=== PATIENT | male | born 1960 | race Caucasian/White ===

== ENCOUNTER 2018-05-08 07:19 | Day surgery (SDC) | payer OTHER ==
[~2018-05-08] VITALS: Ht 188 cm; Wt 70.5 kg
[2018-05-08] VITALS (9 sets, daily range): BP systolic 132–158; BP diastolic 87–97; PULSE 64–80; TEMP 36.8–37.2; O2SAT 95–98; Ht 188 cm; Wt 70.5 kg
[~2018-05-08 07:19] MED LIST: DILT240C74 PO; DOXY100C76 PO; ERGO500037 PO; MAGN400T6 PO
[2018-05-08] MEDS ORDERED: DOXY100C76 PO (07:41)
--- NOTE | 2018-05-08 09:03 | Discharge Instructions ---
Discharge Instructions Procedure Procedure Date: May 08, 2018. Reason for visit: Lymes Disease W/Opening Pressure. Discharge Discharge Date: May 08, 2018. Discharge Diagnosis: same Instructions Activity Recommendations: No limitations Return to School/Work: no limitations Recommended Home Diet: Resume Previous Diet Provider Instructions: ACTIVITY RECOMMENDATIONS: * Rest today. * Resume regular activity in one day. MEDICATIONS: * May take Tylenol or Ibuprofen as needed for pain. DIET: * Resume previous diet. SPECIAL CARE INSTRUCTIONS: Call your doctor if: * Temperature above 101 degrees F. * Pain not relieved by pain medicine ordered. * Increased drainage or redness from incision. * Notify your doctor with any questions or concerns. Call your doctor or go to the nearest Emergency Department if you experience: * Increased chest pain or shortness of breath. FOLLOW UP VISIT: Follow-up with Referring Physician as scheduled. Allergies Coded Allergies: No Known Allergies (Unverified , 05/08/18) Benitez Sanders Recommendations: Call your doctor if: * Temperature above 101 degrees * Pain not relieved by pain medicine ordered * There is increased drainage or redness from any incision * You have any unanswered questions or concerns. Your Doctors Instructions noted above were prepared by provider Leonard Quiñones. Patient Signature Section: Patient Instructions Signature Page Sudarshan Rodríguez Patient (or Guardian) Signature/Date: I have read and understand the instructions given to me by my caregivers. Caregiver/RN/Doctor Signature/Date: The above-named patient and/or guardian has received patient instructions on this date. + Original Patient Signature Page (only) stays with chart. Please make copy for patient.
--- NOTE | 2018-05-08 09:05 | DIAGNOSTIC IMAGING REPORT ---
FLUOROSCOPICALLY GUIDED LUMBAR PUNCTURE CLINICAL HISTORY: lymes disease FLUOROSCOPY TIME: 0.2 minutes. A single fluoroscopic spot image of the lumbar spine. PROCEDURE: The procedure, risks and benefits were discussed with the patient including the risk of spinal headache, bleeding and infection. The patient agreed to the procedure and informed written consent was obtained. The procedure was performed by Dr. Quiñones following a timeout. The left L4-L5 interlaminar space was targeted. Skin overlying the space was prepped and draped in the usual sterile fashion and local anesthesia was achieved with 1% lidocaine. Under intermittent fluoroscopic guidance, a 20-gauge x 3 1/2 in. Sprotte needle was inserted into the thecal sac. A total of 10 cc of clear, colorless cerebral spinal fluid was obtained and spread amongst 4 vials. The patient tolerated the procedure well. There were no immediate complications. The specimens were sent to the laboratory at the request of the referring physician. IMPRESSION: Successful fluoroscopic guided lumbar puncture with removal of 10 cc of clear, colorless cerebral spinal fluid. No immediate complications. Opening pressure was 9 cm of H2O. Electronically signed by: Leonard Quiñones M.D. 05/08/2018 9:04 AM Dictated Date/Time: 05/08/2018 9:01 AM
[2018-05-08] MEDS ORDERED: ACETAMINOPHEN 500 MG TAB PO PRN (09:15)
[2018-05-08 09:49] LABS: CSF TOTAL PROTEIN 50.7 mg/dl (15.0-45.0)
== END 2018-05-08 13:05 | disposition home or self-care (01) ==
LOC: C.ACU 07:19
PROVIDERS: ATTEND Psychiatry & Neurology Neurology
DX: A69.20 Lyme disease, unspecified (principal)

== ENCOUNTER 2021-08-28 14:31 | Observation (INO) ==
[2021-08-28 20:23] LABS: Basophils # (auto) 0.04 K/uL (0-0.2); Basophils % (auto) 0.4 %; Eosinophils # (auto) 0.14 K/uL (0-0.5); Eosinophils % (auto) 1.6 %; Hematocrit (blood only) 48.6 % (42-52); Hemoglobin 16.5 g/dL (14.0-18.0); Immature Granulocytes # (auto) 0.01 K/uL (0.00-0.02); Immature Granulocytes % (auto) 0.1 %; Lymphocytes # (auto) 1.76 K/uL (1.2-3.4); Lymphocytes % (auto) 19.8 %; Mean Corpuscular Hemoglobin 29.7 pg (25-34); Mean Corpuscular Volume 87.6 fL (80-100); Mean Platelet Volume 10.9 fL (7.4-10.4); Monocytes # (auto) 0.41 K/uL (0.11-0.59); Monocytes % (auto) 4.6 %; Neutrophils # (auto) 6.55 K/uL (1.4-6.5); Neutrophils % (auto) 73.5 %; Platelet Count 232 K/uL (130-400); RDW Coefficient of Variation 13.4 % (11.5-14.5); RDW Standard Deviation 43.4 fL (36.4-46.3); Red Blood Count 5.55 M/uL (4.7-6.1); White Blood Count 8.91 K/uL (4.8-10.8)
[2021-08-28 20:32] LABS: BUN Creatinine Ratio 4.6 (10-20); Calcium 9.1 mg/dl (8.5-10.1); Creatinine Clr Calc Pharmacy 65.4 ml/min; Est GFR (African American) 71.1 ml/min; Est GFR (Non-African American) 61.3 ml/min; Potassium 3.4 mmol/L (3.5-5.1)
[2021-08-28 20:35] LABS: Albumin Globulin Ratio 0.7 (0.9-2); Bilirubin,Total 0.9 mg/dl (0.2-1); Globulin 5.5 gm/dl (2.5-4.0); Total Protein 9.5 gm/dl (6.4-8.2)
[2021-08-28] MEDS ORDERED: GADOBUTROL 65ML VIAL IV ONE (22:28)
--- NOTE | 2021-08-28 22:54 | Emergency Department Note ---
History of Present Illness General Chief complaint: Hypertension Stated complaint: DIZZY/DOUBLE VISION/HIGH BLOOD PRESSURE History of Present Illness Maximum Pain Intensity: 4 This 61-year-old who was seen by myself yesterday presents to the ER complaining of getting called back for over read on CAT scan needing an MRI Location: None Quality: Better Severity: None Duration: This morning Timing: Patient was called this morning Context: Patient came back as he was instructed to Modifying factors: better with nothing; worse with nothing Patient states no real changes since yesterday. He does feel like his vision might be a little bit better. Patient denies chest pain, dyspnea, numbness, tingling, localized weakness. Home Medications Medication Instructions Recorded Confirmed Type cholecalciferol (vitamin D3) 50 50 mcg PO DAILY #30 cap 07/20/20 08/28/21 Rx mcg (2,000 unit) capsule duloxetine 30 mg capsule,delayed 30 mg PO DAILY #30 cap 01/11/21 08/28/21 Rx release pantoprazole 40 mg tablet,delayed 40 mg PO BID #60 tab 04/02/21 08/28/21 Rx release levetiracetam 500 mg tablet 1,500 mg PO Q12H #180 tab 07/04/21 08/28/21 Rx folic acid 1 mg tablet 1 mg PO DAILY #30 tab 07/06/21 08/28/21 Rx metoprolol tartrate 50 mg tablet 50 mg PO Q12H #60 tab 07/06/21 08/28/21 Rx doxazosin 2 mg tablet 2 mg PO DAILY #30 tab 07/23/21 08/28/21 Rx ibuprofen 200 mg tablet 400 mg PO Q6H PRN 08/27/21 08/28/21 History meloxicam 15 mg tablet 15 mg PO HS 08/28/21 08/28/21 History Allergies Allergy/AdvReac Type Severity Reaction Status Date / Time No Known Allergies Allergy Verified 08/27/21 22:10 Past Med/Surg History Medical History Alcohol withdrawal hallucinosis Alcohol withdrawal seizure PT DENIES Arthritis Hx of gout Hx of intracranial hemorrhage MARCH 2020>DRUG INDUCED COMA AT [place]. "HAD A FEEDING TUBE SHORT TERM". 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 Beliefs That Will Affect Care: None Current Living Situation: Family Feels Safe at Home: Yes Assistive Devices: Glasses Review of Systems A total of 10 systems reviewed and were otherwise negative Physical Exam Vital Signs Vital Signs - 24 hr 08/28/21 15:33 08/28/21 22:52 08/28/21 23:56 Temperature 36.5 C Temperature Source Temporal Artery Scan Pulse Rate 71 Pulse Rate [Left] 67 69 Pulse Rhythm [Left] Regular Pulse Strength [Left] Normal Respiratory Rate 18 20 20 Respiratory Effort / Characteristics Non-Labored Non-Labored Non-Labored Respiratory Depth Normal Normal Normal Respiratory Pattern Regular Regular Blood Pressure 157/106 H Blood Pressure [Left Arm] 197/146 H 202/129 H Blood Pressure Mean 123 Blood Pressure Mean [Left Arm] 163 153 Blood Pressure Position [Left Arm] Lying Pulse Oximetry 96 98 97 Oxygen Delivery Method Room Air Room Air Room Air Sepsis Recent Fever Within 48 Hours No Sepsis New/Unexplained Change in Mental Status No Sepsis Action Taken by Nursing No Action Required 08/29/21 01:23 08/29/21 02:48 Temperature Temperature Source Pulse Rate Pulse Rate [Left] 71 69 Pulse Rhythm [Left] Pulse Strength [Left] Respiratory Rate 20 20 Respiratory Effort / Characteristics Non-Labored Respiratory Depth Normal Normal Respiratory Pattern Regular Blood Pressure Blood Pressure [Left Arm] 167/114 H 167/100 H Blood Pressure Mean Blood Pressure Mean [Left Arm] 131 122 Blood Pressure Position [Left Arm] Lying Lying Pulse Oximetry 94 94 Oxygen Delivery Method Room Air Sepsis Recent Fever Within 48 Hours Sepsis New/Unexplained Change in Mental Status Sepsis Action Taken by Nursing VITALS: Vitals are noted on the nurse's note and reviewed by myself. Vital signs stable. GENERAL: Pleasant male, in no acute distress, nondiaphoretic, well-developed well-nourished. SKIN: The skin was without rashes, erythema, edema, or bruising. There is no tenting of the skin. Capillary reflex less than 2 seconds. HEAD: Normocephalic atraumatic. EARS: External auditory canals clear, EYES: Pupils equal round and reactive to light and accommodation. Conjunctivae without injection, sclerae without icterus. Extraocular movements intact. NOSE: Patent, turbinates without inflammation or discharge. MOUTH: Mucous membranes moist. Pharynx without erythema or exudate. Uvula midline. Airway patent. Tongue does not deviate. NECK: Supple without nuchal rigidity. No lymphadenopathy. No thyromegaly. Cervical spine is nontender. No JVD. HEART: Regular rate and rhythm LUNGS: Clear to auscultation bilaterally without wheezes, rales or rhonchi. No retractions or accessory muscle use. ABDOMEN: Positive bowel sounds x 4. Normal tympanic percussion. Soft, nontender, without masses or organomegaly. Zamora sign negative. No guarding or rebound tenderness. No CVA tenderness MUSCULOSKELETAL: No muscle atrophy, erythema, or edema noted. NEURO: Patient was alert and oriented to person place and time. Normal sensat ion to light and sharp touch. Cranial nerves II through XII grossly intact. No pronator drift Cerebellar exam intact. No focal neurological deficits. Course Administered Medications Discontinued Medications Gadobutrol (Gadobutrol 65ml Vial) 7.5 ml IV ONCE ONE Stop: 08/28/21 22:29 Last Admin: 08/28/21 22:29 Dose: 7.5 ml Documented by: [id number] Labetalol HCl (Labetalol Hcl Iv 5 Mg/Ml 20ml) 10 mg IV NOW STA Stop: 08/28/21 23:36 Last Admin: 08/28/21 23:50 Dose: 10 mg Documented by: [id number] Cosigned by: [id number] Potassium Chloride (Potassium Chloride Crtab 20 Meq Tabcr) 20 meq PO NOW STA Stop: 08/29/21 00:19 Last Admin: 08/29/21 00:45 Dose: 20 meq Documented by: [id number] Medical Decision Making Medical Records Attestation: I reviewed the patient's medical records. Home Medications Current Medication List: was personally reviewed by me Laboratory Data Attestation: I reviewed the patient's lab results. Result diagrams: 08/28/21 20:00 08/28/21 20:00 Lab Results 08/28/21 08/28/21 08/28/21 Range/Units 20:00 20:00 23:57 WBC 8.91 (4.8-10.8) K/uL RBC 5.55 (4.7-6.1) M/uL Hgb 16.5 (14.0-18.0) g/dL Hct 48.6 (42-52) % MCV 87.6 (80-100) fL MCH 29.7 (25-34) pg MCHC 34.0 (32-36) g/dL RDW Std Deviation 43.4 (36.4-46.3) fL RDW Coeff of Odin 13.4 (11.5-14.5) % Plt Count 232 (130-400) K/uL MPV 10.9 H (7.4-10.4) fL Immature Gran % (Auto) 0.1 % Neut % (Auto) 73.5 % Lymph % (Auto) 19.8 % Gosper % (Auto) 4.6 % Eos % (Auto) 1.6 % Baso % (Auto) 0.4 % Neut # (Auto) 6.55 H (1.4-6.5) K/uL Lymph # (Auto) 1.76 (1.2-3.4) K/uL Gosper # (Auto) 0.41 (0.11-0.59) K/uL Eos # (Auto) 0.14 (0-0.5) K/uL Baso # (Auto) 0.04 (0-0.2) K/uL Immature Gran # (Auto) 0.01 (0.00-0.02) K/uL Sodium 135 L (136-145) mmol/L Potassium 3.4 L (3.5-5.1) mmol/L Chloride 99 (98-107) mmol/L Carbon Dioxide 28 (21-32) mmol/L Anion Gap 8.0 (3-11) BUN 6 L (7-18) mg/dl Creatinine 1.25 (0.6-1.4) mg/dl Est Cr Clr Drug Dosing 65.4 ml/min Est GFR ( Amer) 71.1 ml/min Est GFR (Non-Af Amer) 61.3 ml/min BUN/Creatinine Ratio 4.6 L (10-20) Glucose 101 H (70-99) mg/dl Calcium 9.1 (8.5-10.1) mg/dl Total Bilirubin 0.9 (0.2-1) mg/dl AST 11 L (15-37) U/L ALT 13 (12-78) U/L Alkaline Phosphatase 113 (45-117) U/L Total Protein 9.5 H (6.4-8.2) gm/dl Albumin 4.0 (3.4-5.0) gm/dl Globulin 5.5 H (2.5-4.0) gm/dl Albumin/Globulin Ratio 0.7 L (0.9-2) SARS-CoV-2, RNA, NAAT NEGATIVE (NEGATIVE) Imaging Data Attestation: I personally reviewed and interpreted this imaging study as follows: MDM Narrative Prior records/ancillary studies reviewed and summarized above. Nursing notes reviewed. Additional history obtained from nursing. The patient's history was concerning for abnormal CT over read Differential diagnosis: Etiologies such as metabolic, infection, hypo/hyperglycemia, electrolyte abnormalities, cardiac sources, intracerebral event, toxicologic, neurologic, as well as others were entertained. Physical examination: As above. ER treatment provided: IV Lock An order was placed for continuous cardiac monitoring. The monitor shows a rate of 60-100 with a sinus rhythm. P.o. fluids On reassessment the patient felt better. Diagnostics interpretation by me: The labs revealed stable H&H Imaging studies: MRI HEAD : Impression: Subtle acute infarction in the left pontomedullary junction Gliosis and volume loss in the bilateral rectus gyri with associated hemosiderin staining compatible with prior hemorrhagic contusions. Global parenchymal volume loss with extensive chronic microvascular ischemic changes. Chronic lacunar infarction in the left basal nuclei. Radiologist: Sandor Arevalo MD Consultation: A consultation was placed with the hospitalist. The case was discussed and diagnostics were reviewed. The patient was evaluated in the ER for further treatment. Exam and history seem consistent with CVA. Medicine was consulted. He will be admitted. Symptoms been ongoing for several days. Patient is agreeable. By the evaluation outlined above emergent etiologies such as infection, electrolyte abnormalities, cardiac sources, toxologic, abnormalities blood glucose, metabolic, as well as others were deemed relatively unlikely. The pt informed about the findings as listed above. All questions were answered and pleased with the treatment. The chart was completed utilizing [employer] Speech voice recognition software. Grammatical errors, random word insertions, pronoun errors, and incomplete sentences are an occassional consequence of this system due to software limitations, ambient noise, and hardware issues. Any formal questions or concerns about the content, text, or information contained within the body of this dictation should be directly addressed to the physician economist research assistant for clarification. Impression & Plan Diplopia, Abnormal MRI of head Discharge Plan Visit Data Chief Complaint: Hypertension Stated Complaint: DIZZY/DOUBLE VISION/HIGH BLOOD PRESSURE ED Provider: Rashad Dowling ED Midlevel Provider: Fanny Garcia Discharge Problem: Diplopia, Abnormal MRI of head Patient Disposition: Admitted As Inpatient Condition: Good Forms Stand Alone Forms: [facility] [employer] Prescriptions Prescriptions: No Action cholecalciferol (vitamin D3) 50 mcg (2,000 unit) capsule 50 mcg PO DAILY Qty: 30 RF: 5 duloxetine 30 mg capsule,delayed release(DR/EC) 30 mg PO DAILY Qty: 30 RF: 5 levetiracetam 500 mg tablet 1,500 mg PO Q12H Qty: 180 RF: 3 metoprolol tartrate 50 mg tablet 50 mg PO Q12H Qty: 60 RF: 5 folic acid 1 mg tablet 1 mg PO DAILY Qty: 30 RF: 5 doxazosin 2 mg tablet 2 mg PO DAILY Qty: 30 RF: 5 meloxicam 15 mg tablet 15 mg PO HS RF: 0 pantoprazole 40 mg tablet,delayed release (DR/EC) 40 mg PO BID Qty: 60 RF: 5 ibuprofen 200 mg Tablet 400 mg PO Q6H PRN (Reason: Pain) RF: 0 Referrals Referrals: Marcelo Houston MD [Primary Care Provider] -
[2021-08-28] MEDS ORDERED: LABETALOL HCL IV 5 MG/ML 20ML IV STA (23:35)
[2021-08-29] MEDS ORDERED: POTASSIUM CHLORIDE CRTAB 20 MEQ TABCR PO STA (00:18)
--- NOTE | 2021-08-29 00:18 | History & Physical Report ---
Date of Service August 29, 2021 Assessment & Plan (1) Diplopia: Plan: Patient is a 61 year old male with PMHx HTN, Intracranial Hemorrhage, Seizure that returns to the ED for MRI after overread a CT scan the day prior noted a possible stroke. CVA -MRI Head stat read noting a subtle acute infarction in the L pontomedullary junction. Also noting gliosis and volume loss in the bilateral rectus gyri with associated hemosiderin staining compatible with prior hemorrhagic contusions. -CTA Head and Neck the day prior without central vessel occlusion, intracranial aneurysm, or significant stenosis. -Start ASA 81mg and Atorvastatin 40mg qAM -AM HgbA1c and Lipid panel ordered -Morning CECILY ordered -Neurology consulted HTN -Fairly hypertensive in the ED with systolics >200 -As patient is >24 hours since stroke symptom onset, will treat for reduction <190 SBP -Continue home Metoprolol -Continue home Cardura -Received IV labetalol 10mg in ED -Will give Hydralazine IV 10mg TID PRN for SBP >190 Hypokalemia -K at 3.4 -Will give 20meq KCl PO -Repeat in AM Hx Seizure -Continue home Keppra GERD -Continue home Pantprazole Dispo: Med/Surg Telemetry FEN: Regular diet DVT: SCDs Code: Full History of Present Illness Chief Complaint: Double vision Primary Care Provider: Marcelo Houston MD Patient is a 61 year old male with PMHx HTN, Intracranial Hemorrhage, Seizure that returns to the ED for MRI after overread a CT scan the day prior noted a possible stroke. On repeat MRI stat read today patient's brain MRI shows a subtle acute infarction in the L pontomedullary junction. Patient notes that for the past 6 days he has actually been experiencing double vision and dizziness when both eyes are open in addition to some muscular neck pain. He notes that when he closes one of his eyes the double vision resolves. He notes that since being seen yesterday in the ED, his symptoms have improved a fair amount already as well. He has history of a fall secondary to ?seizure 1 year ago which had led to intracranial hemorrhage. Patient notes he doesn't remember April of 2020 ve ry well due to that incident. He was following with [facility] at the time, but has not gone back recently. Currently he denies any NVD, SOB, chest pain, chest pressure, dizziness, headache, upper or lower extremity weakness, fever, chills. Med Hx: Seizure disorder, HTN, Intracranial hemorrhage, Hx alcohol abuse Surg Hx: R wrist repair Soc Hx: Denies cigarette use. Notes 1 can/day of chewing tobacco. Denies current alcohol use, quit 1 year ago after his accident, but was drinking upwards of 12 beers daily. Denies illicit drug use. Allergies Allergy/AdvReac Type Severity Reaction Status Date / Time No Known Allergies Allergy Verified 08/27/21 22:10 Home Medications Medication Instructions Recorded Confirmed Type cholecalciferol (vitamin D3) 50 50 mcg PO DAILY #30 cap 07/20/20 08/28/21 Rx mcg (2,000 unit) capsule pantoprazole 40 mg tablet,delayed 40 mg PO BID #60 tab 04/02/21 08/28/21 Rx release levetiracetam 500 mg tablet 1,500 mg PO Q12H #180 tab 07/04/21 08/28/21 Rx folic acid 1 mg tablet 1 mg PO DAILY #30 tab 07/06/21 08/28/21 Rx metoprolol tartrate 50 mg tablet 50 mg PO Q12H #60 tab 07/06/21 08/28/21 Rx doxazosin 2 mg tablet 2 mg PO DAILY #30 tab 07/23/21 08/28/21 Rx duloxetine 30 mg capsule,delayed 30 mg PO DAILY #30 cap 08/29/21 Rx release amlodipine 5 mg tablet 5 mg PO DAILY #30 tab 08/30/21 Rx aspirin 81 mg tablet,delayed 81 mg PO QAM #30 tab 08/30/21 Rx release atorvastatin 40 mg tablet 40 mg PO QAM #30 tab 08/30/21 Rx clopidogrel 75 mg tablet 75 mg PO QAM #20 tab 08/30/21 Rx Past Med/Surg History Medical History (Updated 08/30/21 @ 15:13 by Maribel Novak MD) Alcohol withdrawal hallucinosis Alcohol withdrawal seizure PT DENIES Arthritis CVA (cerebral vascular accident) Hx of gout Hx of intracranial hemorrhage MARCH 2020>DRUG INDUCED COMA AT [place]. "HAD A FEEDING TUBE SHORT TERM". PT UNSURE OF DETAILS Hypertension Lyme disease Seizure MARCH 2020 (FELL AND HIT HEAD>DRUG INDUCED COMA/HOSPITALIZED AT [facility]) FOLLOWS WITH [facility] Surgical History H/O wrist surgery RT Hx of wisdom tooth extraction Family History Other No family history of adverse response to anesthesia No significant family history Social History Smoking Status: Never smoker Tobacco Type: Smokeless Tobacco (Dip or Chew) Second Hand Exposure: No; Hx Alcohol Use: Yes Alcohol type: beer Hx Substance Use: No Preferred Language: Fijian Communication Ability: Effective Relief Salesperson Required: No Beliefs That Will Affect Care: None marital status: Current Living Situation: Spouse Feels Safe at Home: Yes Assistive Devices: None Review of Systems Review of Systems: All systems reviewed & are unremarkable except as noted in Subjective Physical Exam Constitutional: WD/WN, vitals as above Eyes: PERRL, conjunctivae normal, anicteric sclerae normal visual drummond by confrontation ENMT: external ear and nose normal, oropharynx normal Neck: trachea midline, no thyromegaly Respiratory: normal respiratory effort, lungs clear to auscultation Cardiovascular: RRR, no murmur, no edema Gastrointestinal (Abdomen): normal bowel sounds, soft, nontender, no hepatosplenomegaly Musculoskeletal: no cyanosis or clubbing, extremities motor strength 5/5 Skin: no rashes, warm and dry Neurologic: PERRL, EOMI, accommodation nl, no face palsy, no dysarthria Coordination: normal [id number] test, normal xija-[id number] test and normal rapid alternating movements Psychiatric: A+Ox3, euthymic affect Results & Data Results & Data ([facility]) Vital Signs (Past 12 Hours) Vital Signs Temp Pulse Pulse Resp BP BP Pulse Ox 08/28/21 23:56 69 20 202/129 H 97 08/28/21 22:52 67 20 197/146 H 98 08/28/21 15:33 36.5 C 71 18 157/106 H 96 Supervising Physician Co-Signing Physician Notes Attending addendum: I have physically seen this patient, have supervised the medical residents activities, and agree with the H&P unless as otherwise noted. Assessment and Plan: CVA/diplopia- Subtle acute infarction in left pontomedullary junction Hemosiderin associated previous hemorrhagic events Start aspirin 81 mg daily Start atorvastatin 40 mg daily Check hemoglobin A1c and fasting lipid panel 2D echocardiogram with Dopplers Consult PT/OT/speech/neurology CVA without TPA order set Remaining orders and notations as noted Resident Activity Tracking Resident Involvement: Resident Care Provided Care Provided: Adult Hospital Medicine
[2021-08-29] MEDS ORDERED: ONDANSETRON INJ 2 MG/ML 2 ML VIAL IV PRN (05:35)
[2021-08-29] MEDS ORDERED: PHARMACIST DISCHARGE MED REC CONSULT PRN (05:35)
[2021-08-29] MEDS ORDERED: hydrALAZINE HCL 20 MG/ML VIAL IV PRN (05:35)
[2021-08-29] MEDS ORDERED: ACETAMINOPHEN 325 MG TAB PO PRN (05:35)
[2021-08-29] MEDS: levETIRAcetam 500 MG TAB PO SCH ×2 (08:30→20:40)
[2021-08-29] MEDS: ATORVASTATIN 40 MG TAB PO SCH (08:30)
[2021-08-29] MEDS: PANTOprazole 40 MG TAB PO SCH ×2 (08:31→20:40)
[2021-08-29] MEDS: FOLIC ACID 1 MG TAB PO SCH (08:31)
[2021-08-29] MEDS: DULoxetine HCL 30 MG CAP PO SCH (08:31)
[2021-08-29] MEDS: DOXAZosin MESYLATE TAB 2 MG TAB PO SCH (08:31)
[2021-08-29] MEDS: ASPIRIN 81 MG ECTAB PO SCH (08:31)
[2021-08-29] MEDS: METOPROLOL TARTRATE 50 MG TAB PO SCH ×2 (08:31→20:39)
--- NOTE | 2021-08-29 08:31 | Magnetic Resonance Report ---
MRI OF THE BRAIN COMBO CLINICAL HISTORY: Diplopia. Abnormal CT scan. COMPARISON STUDY: CT of the brain dated 08/28/2021. MRI of the brain dated 10/14/2011. TECHNIQUE: MRI of the brain was performed utilizing various T1 and T2-weighted sequences in the axial , sagittal, and coronal planes. Contrast-enhanced sequences were acquired following the administratio n of 7.5 cc of Gadavist. FINDINGS: Brain parenchyma: There is age-related involutional change noting moderate subcortical and periventri cular microangiopathic disease. There is no hemorrhage or mass effect. Question a punctate focus of r estricted diffusion versus artifact at the left pontomedullary junction on image #6. A small acute to subacute lacunar infarct is not excluded. No additional foci of restricted diffusion are identified to suggest acute ischemia. There is nonspecific edema within the left occipital cortex, best seen on the coronal FLAIR sequences. The overlying cortex appears preserved and there is no restricted diffus ion identified in this region. A chronic lacunar infarct is noted in the left caudate head small foci of encephalomalacia with hemosiderin deposition in the anterior frontal poles suggests previous hemo rrhagic contusions. No extra-axial fluid collection is seen. The cerebellar tonsils are normal in con figuration. Ventricles, sulci, and cisterns: Normal in configuration prominent secondary to involutional change. Pituitary and sella: Unremarkable. Intracranial vasculature: Normal flow voids are maintained at the skull base. Orbits: The bony orbits are grossly intact. Orbital contents are normal in appearance. Sinuses and mastoids: A 2.7 cm retention cyst is noted in the right maxillary antrum. Mild mucosal th ickening is seen in the left maxillary sinus. The remaining paranasal sinuses are clear. There is a s mall left mastoid effusion. Calvarium: Unremarkable. Cervical cord: Partially visualized cervical spinal cord is normal in morphology and signal intensity . IMPRESSION: 1. Question a punctate focus of restricted diffusion versus artifact at the left pontomedullary junct ion. A tiny acute to subacute lacunar infarct is not excluded. 2. There is significant focal edema within the left posterior occipital lobe with preservation of the overlying cortex. There is no associated abnormal postcontrast enhancement or restricted diffusion. This is nonspecific, and could represent a nonspecific cerebritis, an atypical appearing subacute inf arct, or less likely a low-grade glial neoplasm. Clinical correlation will be required. A follow-up M RI in several weeks' time is recommended for reevaluation. 3. Additional chronic findings as above. ACT 112: Negative or not required by law. Electronically signed by: Howie Cole M.D. 08/29/2021 8:29 AM
--- NOTE | 2021-08-29 08:40 | Neurology Consultation ---
Date of Consultation August 29, 2021 Assessment & Plan (1) Abnormal MRI of head: 1. MRI brain - left pontomedulary junction. 2. start aspirin 81 mg and plavix 75 mg daily x 21 days then aspirin 81 mg alone for life 3. PT/OT speech for any discharge needs 4. continue Keppra 1500 mg q 12 hours 5. no driving for 6 months from last seizure date, no heights, no bathing or swimming alone 6. ophthalmology exam prior to return to driving follow up with neurology in 4-6 weeks Mariam TONG (2) Diplopia: Supervising Physician Co-Signing Physician Notes Patient was seen and examined. A 61 year old male with history of TBI, chronic alcohol use, traumatic ICH, and seizure admitted with acute / subacute lacunar infarct in the brainstem abraham seen on MRI as well as encephalomalacia likely due to prior hemorrhagic contusions. Patient noted binoccular diplopia earlier this week which has improved as well as dizziness. EOMI intact. No diplopia currently. Reports he has stopped drinking. Will start DAP for 21 days then ASA 81 mg daily. SBP goal < 140 mm Hg, DBP < 90 mm Hg. Follow up with Neurology as outpatient. History of Present Illness Reason for Consultation: stroke Requesting Physician: Sundeep Carter MD Attending Physician: Sundeep Carter History of Present Illness Sudarshan is a 61 year old male with PMH- HTN, Intracranial Hemorrhage, Seizure that returns to the [facility] ED 08/28/2021 for MRI after over read a CT scan the day prior noted a possible stroke. MRI read today patient's brain MRI shows a subtle acute infarction in the L pontomedullary junction. For the past 6 days he has actually been experiencing double vision and dizziness when both eyes are open in addition to some muscular neck pain. He notes that when he closes one of his eyes the double vision resolves. Since being seen yesterday in the ED, his symptoms have improved a fair amount already as well. He has history of a fall secondary to ?seizure 1 year ago which had led to intracranial hemorrhage. He doesn't remember April of 2020 very well due to that incident. He was following with [facility] at the time, but has not gone back recently. He thinks his vision is back to baseline. He has been watching TV and at first it was double side by side then resolved. denies CP, SOB, abdominal pain, N, V. Allergies Allergy/AdvReac Type Severity Reaction Status Date / Time No Known Allergies Allergy Verified 08/27/21 22:10 Home Medications Medication Instructions Recorded Confirmed Type cholecalciferol (vitamin D3) 50 50 mcg PO DAILY #30 cap 07/20/20 08/28/21 Rx mcg (2,000 unit) capsule pantoprazole 40 mg tablet,delayed 40 mg PO BID #60 tab 04/02/21 08/28/21 Rx release levetiracetam 500 mg tablet 1,500 mg PO Q12H #180 tab 07/04/21 08/28/21 Rx folic acid 1 mg tablet 1 mg PO DAILY #30 tab 07/06/21 08/28/21 Rx metoprolol tartrate 50 mg tablet 50 mg PO Q12H #60 tab 07/06/21 08/28/21 Rx doxazosin 2 mg tablet 2 mg PO DAILY #30 tab 07/23/21 08/28/21 Rx ibuprofen 200 mg tablet 400 mg PO Q6H PRN 08/27/21 08/28/21 History meloxicam 15 mg tablet 15 mg PO HS 08/28/21 08/28/21 History duloxetine 30 mg capsule,delayed 30 mg PO DAILY #30 cap 08/29/21 Rx release Patient History Medical History Alcohol withdrawal hallucinosis Alcohol withdrawal seizure PT DENIES Arthritis Hx of gout Hx of intracranial hemorrhage MARCH 2020>DRUG INDUCED COMA AT [place]. "HAD A FEEDING TUBE SHORT TERM". PT UNSURE OF DETAILS Hypertension Lyme disease Seizure MARCH 2020 (FELL AND HIT HEAD>DRUG INDUCED COMA/HOSPITALIZED AT [facility]) FOLLOWS WITH [facility] Surgical History H/O wrist surgery RT Hx of wisdom tooth extraction Family History Other No family history of adverse response to anesthesia No significant family history Social History Smoking Status: Never smoker Tobacco Type: Smokeless Tobacco (Dip or Chew) Second Hand Exposure: No; Do You Dip or Chew Tobacco: Yes; Tobacco Cessation Education Requested by Patient: No Hx Alcohol Use: Yes Alcohol type: beer Hx Substance Use: No Preferred Language: [place] Communication Ability: Effective 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 Beliefs That Will Affect Care: None Current Living Situation: Spouse Other Information That Helps Us Care for You: No Feels Safe at Home: Yes Safety Concerns: Feels Safe At This Time Assistive Devices: Walker Review of Systems Review of Systems: All systems reviewed & are unremarkable except as noted in HPI & below Physical Exam Physical Exam: Physical Exam: Constitutional: appearance over nourished, healthy Ears, Nose, Mouth and Throat: mucous membranes moist, no injection and skin normal, eyes normal Cardiovascular: normal S-1 and S-2 and regular rate and rhythm Respiratory: clear to auscultation (CTA) and no rales, ronchi or wheeze Musculoskeletal: no peripheral edema and good distal pulses Skin: no stigmata of neurocutaneous disease noted and normal and intact Eyes: extraocular muscles intact (EOMI) and pupils equal, round and reactive to light (PERRL), NEUROLOGIC EXAMINATION: Mental status: Alert and interactive Oriented to full date and location Oriented to person Speech fluent with no evidence of aphasia Cranial Nerves Normal findings for Cranial Nerves II - XII Reflexes: Deep tendon reflexes were symmetrical and graded 2/5. Sensory: intact to light cool touch Coordination: finger to nose, heel to bello romberg + with eyes closed. Gait/Stance: Posture normal. Gait normal: with steady with steps, base, and tandem gait. Motor: Negative for pronator drift of out stretched arms with eyes closed. 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 tacker, biceps triceps 5/5, hip flex plantar flex ext 5/5 Results & Data ([facility]) Vital Signs (Past 12 Hours) Vital Signs Temp Pulse Pulse Resp BP BP Pulse Ox 08/29/21 08:01 36.4 C L 57 L 16 152/85 H 95 08/29/21 07:00 60 08/29/21 04:43 36.7 C 67 18 166/115 H 94 08/29/21 04:26 66 08/29/21 03:58 66 18 140/85 93 08/29/21 02:48 69 20 167/100 H 94 08/29/21 01:23 71 20 167/114 H 94 08/28/21 23:56 69 20 202/129 H 97 08/28/21 22:52 67 20 197/146 H 98 Laboratory Results Abnormal lab results 08/28/21 08/28/21 Range/Units 20:00 20:00 MPV 10.9 H (7.4-10.4) fL Neut # (Auto) 6.55 H (1.4-6.5) K/uL Sodium 135 L (136-145) mmol/L Potassium 3.4 L (3.5-5.1) mmol/L BUN 6 L (7-18) mg/dl BUN/Creatinine Ratio 4.6 L (10-20) Glucose 101 H (70-99) mg/dl AST 11 L (15-37) U/L Total Protein 9.5 H (6.4-8.2) gm/dl Globulin 5.5 H (2.5-4.0) gm/dl Albumin/Globulin Ratio 0.7 L (0.9-2) Diagnostic Findings MRI brain- Question a punctate focus of restricted diffusion versus artifact at the left pontomedullary junction. A tiny acute to subacute lacunar infarct is not excluded. There is significant focal edema within the left posterior occipital lobe with preservation of the overlying cortex. There is no associated abnormal postcontrast enhancement or restricted diffusion. This is nonspecific, and could represent a nonspecific cerebritis, an atypical appearing subacute infarct, or less likely a low-grade glial neoplasm. Clinical correlation will be required. A follow-up MRI in several weeks' time is recommended for reevaluation.. CTA head-No central vessel occlusion. No intracranial aneurysm. CTA neck-Atherosclerotic plaque within the bilateral proximal internal carotid arteries without significant stenosis. Mild fusiform dilatation of the distal cervical portion of the left internal carotid artery, measuring 7 mm in caliber. TTE- EF 55-60% no ASD
--- NOTE | 2021-08-29 12:46 | XCELERA ---
[id number]
--- NOTE | 2021-08-29 13:09 | Electrocardiogram Report ---
Test Reason : Blood Pressure : / mmHG Vent. Rate : 063 BPM Atrial Rate : 063 BPM P-R Int : 170 ms QRS Dur : 076 ms QT Int : 456 ms P-R-T Axes : 045 -02 045 degrees QTc Int : 466 ms Normal sinus rhythm Nonspecific T wave abnormality Prolonged QT Abnormal ECG When compared with ECG of 27-AUG-2021 18:06, Nonspecific T wave abnormality, worse in Lateral leads Confirmed by Marcelo Uribe ([id number]) on 08/29/2021 1:09:17 PM Referred By: REFERRED SELF Confirmed By:Evens Uribe
[2021-08-30 06:17] LABS: Basophils # (auto) 0.05 K/uL (0-0.2); Basophils % (auto) 0.6 %; Eosinophils # (auto) 0.14 K/uL (0-0.5); Eosinophils % (auto) 1.6 %; Hematocrit (blood only) 41.9 % (42-52); Immature Granulocytes # (auto) 0.02 K/uL (0.00-0.02); Immature Granulocytes % (auto) 0.2 %; Lymphocytes # (auto) 2.65 K/uL (1.2-3.4); Lymphocytes % (auto) 30.4 %; Mean Corpuscular Hemoglobin 29.1 pg (25-34); Mean Corpuscular Hgb Conc 33.4 g/dL (32-36); Mean Corpuscular Volume 87.1 fL (80-100); Mean Platelet Volume 10.9 fL (7.4-10.4); Monocytes # (auto) 0.64 K/uL (0.11-0.59); Monocytes % (auto) 7.3 %; Neutrophils # (auto) 5.21 K/uL (1.4-6.5); Neutrophils % (auto) 59.9 %; Platelet Count 200 K/uL (130-400); RDW Coefficient of Variation 13.5 % (11.5-14.5); RDW Standard Deviation 43.1 fL (36.4-46.3); Red Blood Count 4.81 M/uL (4.7-6.1); White Blood Count 8.71 K/uL (4.8-10.8)
[2021-08-30 06:41] LABS: BUN Creatinine Ratio 12.2 (10-20); Calcium 9.1 mg/dl (8.5-10.1); Creatinine Clr Calc Pharmacy 85.6 ml/min; Est GFR (African American) 95.4 ml/min; Est GFR (Non-African American) 82.3 ml/min; Potassium 3.6 mmol/L (3.5-5.1)
[2021-08-30 07:58] LABS: Estimated Average Glucose 111 mg/dl; Hemoglobin A1C 5.5 % (4.5-5.6)
[2021-08-30] MEDS: METOPROLOL TARTRATE 50 MG TAB PO SCH (08:57)
[2021-08-30] MEDS: levETIRAcetam 500 MG TAB PO SCH (08:57)
[2021-08-30] MEDS: PANTOprazole 40 MG TAB PO SCH (08:57)
[2021-08-30] MEDS: ATORVASTATIN 40 MG TAB PO SCH (08:58)
[2021-08-30] MEDS: DULoxetine HCL 30 MG CAP PO SCH (08:58)
[2021-08-30] MEDS: FOLIC ACID 1 MG TAB PO SCH (08:58)
[2021-08-30] MEDS: DOXAZosin MESYLATE TAB 2 MG TAB PO SCH (08:58)
[2021-08-30] MEDS: ASPIRIN 81 MG ECTAB PO SCH (08:58)
[2021-08-30] MEDS ORDERED: CLOPIDOGREL BISULFATE 75 MG TAB PO SCH (09:00)
[2021-08-30] MEDS ORDERED: STROKE PATIENT DISCHARGE STA (15:09)
--- NOTE | 2021-08-30 15:14 | Discharge Summary ---
Date of Service August 30, 2021 Admission HPI Per Admitting Provider Patient is a 61 year old male with PMHx HTN, Intracranial Hemorrhage, Seizure that returns to the ED for MRI after overread a CT scan the day prior noted a possible stroke. On repeat MRI stat read today patient's brain MRI shows a subtle acute infarction in the L pontomedullary junction. Patient notes that for the past 6 days he has actually been experiencing double vision and dizziness when both eyes are open in addition to some muscular neck pain. He notes that when he closes one of his eyes the double vision resolves. He notes that since being seen yesterday in the ED, his symptoms have improved a fair amount already as well. He has history of a fall secondary to ?seizure 1 year ago which had led to intracranial hemorrhage. Patient notes he doesn't remember April of 2020 very well due to that incident. He was following with [facility] at the time, but has not gone back recently. Currently he denies any NVD, SOB, chest pain, chest pressure, dizziness, headache, upper or lower extremity weakness, fever, chills. Med Hx: Seizure disorder, HTN, Intracranial hemorrhage, Hx alcohol abuse Surg Hx: R wrist repair Soc Hx: Denies cigarette use. Notes 1 can/day of chewing tobacco. Denies current alcohol use, quit 1 year ago after his accident, but was drinking upwards of 12 beers daily. Denies illicit drug use. Principal Diagnosis Acute/Subacute left pontomedullary CVA, Diplopia Discharge Exam Constitutional WD/WN, vitals as above Eyes PERRL, conjunctivae normal, anicteric sclerae ENMT external ear and nose normal, oropharynx normal Neck trachea midline, no thyromegaly Respiratory normal respiratory effort, lungs clear to auscultation Cardiovascular RRR, no murmur, no edema Chest (Breasts) Chest: normal inspection of chest Gastrointestinal (Abdomen) normal bowel sounds, soft, nontender, no hepatosplenomegaly Musculoskeletal Extremities: extremities normal to inspection; no cyanosis and no clubbing Skin no rashes, warm and dry Neurologic moves all extremities and awake; no focal motor deficits Psychiatric A+Ox3, euthymic affect Lymphatic no lymphedema Discharge Data Allergies Allergy/AdvReac Type Severity Reaction Status Date / Time No Known Allergies Allergy Verified 08/27/21 22:10 Consultations 08/28/21 23:56 ED Decision to Admit Stat 08/29/21 05:35 Consult Neurology Routine Ordered Studies 08/28/21 20:09 MR brain wo/w con Stat Brain MRI 08/28/21 20:09 MRI OF THE BRAIN COMBO CLINICAL HISTORY: Diplopia. Abnormal CT scan. COMPARISON STUDY: CT of the brain dated 08/28/2021. MRI of the brain dated 10/14/2011. TECHNIQUE: MRI of the brain was performed utilizing various T1 and T2-weighted sequences in the axial, sagittal, and coronal planes. Contrast-enhanced sequences were acquired following the administration of 7.5 cc of Gadavist. FINDINGS: Brain parenchyma: There is age-related involutional change noting moderate subcortical and periventricular microangiopathic disease. There is no hemorrhage or mass effect. Question a punctate focus of restricted diffusion versus artifact at the left pontomedullary junction on image #6. A small acute to subacute lacunar infarct is not excluded. No additional foci of restricted diffusion are identified to suggest acute ischemia. There is nonspecific edema within the left occipital cortex, best seen on the coronal FLAIR sequences. The overlying cortex appears preserved and there is no restricted diffusion identified in this region. A chronic lacunar infarct is noted in the left caudate head small foci of encephalomalacia with hemosiderin deposition in the anterior frontal poles suggests previous hemorrhagic contusions. No extra-axial fluid collection is seen. The cerebellar tonsils are normal in configuration. Ventricles, sulci, and cisterns: Normal in configuration prominent secondary to involutional change. Pituitary and sella: Unremarkable. Intracranial vasculature: Normal flow voids are maintained at the skull base. Orbits: The bony orbits are grossly intact. Orbital contents are normal in appearance. Sinuses and mastoids: A 2.7 cm retention cyst is noted in the right maxillary antrum. Mild mucosal thickening is seen in the left maxillary sinus. The remaining paranasal sinuses are clear. There is a small left mastoid effusion. Calvarium: Unremarkable. Cervical cord: Partially visualized cervical spinal cord is normal in morphology and signal intensity. IMPRESSION: 1. Question a punctate focus of restricted diffusion versus artifact at the left pontomedullary junction. A tiny acute to subacute lacunar infarct is not excluded. 2. There is significant focal edema within the left posterior occipital lobe with preservation of the overlying cortex. There is no associated abnormal postcontrast enhancement or restricted diffusion. This is nonspecific, and could represent a nonspecific cerebritis, an atypical appearing subacute infarct, or less likely a low-grade glial neoplasm. Clinical correlation will be required. A follow-up MRI in several weeks' time is recommended for reevaluation. 3. Additional chronic findings as above. ACT 112: Negative or not required by law. Electronically signed by: Howie Cole M.D. 08/29/2021 8:29 AM Hospital Course (1) Diplopia: Patient is a 61 year old male with PMHx HTN, Intracranial Hemorrhage, Seizure that returns to the ED for MRI after overread of a CT scan the day prior noted a possible stroke. CVA -MRI Head stat read noting a subtle acute infarction in the L pontomedullary junction. Also noting gliosis and volume loss in the bilateral rectus gyri with associated hemosiderin staining compatible with prior hemorrhagic contusions, but recommended f/u MRI brain in several weeks for follow up to rule out glioma . -CTA Head and Neck the day prior without central vessel occlusion, intracranial aneurysm, or significant stenosis. -Start ASA 81mg and Plavix x 3 weeks, then ASA 81mg daily alone indefinitely -started Atorvastatin 40mg qAM. Lipids good, A1C normal -improve BP control-added amlodipine 5mg daily ECHO normal nothing on tele -avoid NSAIDs Appreciate Neuro consult-f/u Nreuro in 6 weeks f/u with Ophthalmology in 2 weeks, no driving until after cleared by Ophtho HTN -Fairly hypertensive in the ED with systolics >200 -As patient is >24 hours since stroke symptom onset, will treat for reduction <190 SBP -Continue home Metoprolol -Continue home Cardura -Received IV labetalol 10mg in ED -add amlodipine as above Hypokalemia -K at 3.4 -Will give 20meq KCl PO -Repeat normal Hx Seizure -Continue home Keppra GERD -Continue home PPI Stable for dc to home as per PT/OT evals (2) CVA (cerebral vascular accident): (3) Hypertension: (4) Seizure: (5) Hypokalemia: Total Time Total Time Spent Total Time Spent (In Minutes): 40 min Discharge Plan Discharge Items Patient Disposition: Home - Self-Care Reason For Visit: STROKE Discharge Diagnosis: Stroke, Double vision (diplopia) Condition on Discharge: Good Activity: Resume your previous activity Bathing: No limitations Driving/Machine Use: No driving until seen by Ophthalmology Non-emergency contact: Primary Care Provider and Neurologist Call non-emergency contact if: you have any medication questions and your symptoms worsen Follow-up/Referrals: Marcelo Houston MD [Primary Care Provider] - (Follow up within 1-2 weeks) Benson Obrien MD [Physician] - (Follow up with an Gravity Prospecting Operator Helper within 2 weeks for your double vision from the stroke.) Mariam Harvey PA-C [Physician Mill Work] - (Follow up in 6 weeks.) Diet: Heart Healthy Addtl Attending Provider Instructions: You were admitted for a stroke in your brainstem that caused you to have double vision. You will need to take aspirin 81mg daily and Plavix 75mg daily for 3 weeks. After that, then STOP the Plavix and continue on the aspirin 81mg daily after that. You were also started on a cholesterol medication to help prevent future strokes. You were also started on a new blood pressure medication called amlodipine as your blood pressure has been high. This will also help to prevent future strokes. Please follow up with an Gravity Prospecting Operator Helper prior to return to driving. Follow up with the Neurologist in 6 weeks. Risk Factors for Stroke: You can reduce your chances of stroke by working with your medical provider to adopt a healthy lifestyle. Some specific ways to lower your chance of stroke are: * If you are a smoker, now is the time to stop smoking cigarettes * If you are diabetic, improve the control of your blood sugars * Avoid excessive amounts of alcohol * Control high blood pressure * Lose weight if you are overweight * Be sure to lead an active lifestyle * Eat a healthy diet low in salt, cholesterol and fat You should know about other risk factors for stroke that you are unable to control. These include: * Age 55 years or older * Male gender * Certain racial groups: , or / * Family History of Stroke, Mini stroke or Heart Attack * Sickle Cell Disease Follow Up: It is important for you to keep your follow up appointments with your medical provider. Who to Call and When: Medical Emergencies: Call 911 immediately if you experience any of the following warning signs and symptoms of Stroke: * Sudden numbness or weakness of the face, arm or leg, especially on one side of the body * Sudden confusion, trouble speaking or understanding * Sudden trouble seeing in one or both eyes * Sudden trouble walking, dizziness, loss of balance or coordination * Sudden severe headache with no cause Do not delay calling 911 if you experience any warning signs or symptoms of a stroke. Delay in seeking medical attention may affect what treatments can be given to you. . Pending Studies at Discharge: No Stand-Alone Forms: Medications to Prevent Stroke, [facility] [employer], Smoking Cessation Medications and DC Order Prescriptions: New atorvastatin 40 mg Tablet 40 mg PO QAM Qty: 30 RF: 0 clopidogrel 75 mg Tablet 75 mg PO QAM Qty: 20 RF: 0 aspirin 81 mg Tablet,Delayed Release (Dr/Ec) 81 mg PO QAM Qty: 30 RF: 0 amlodipine 5 mg tablet 5 mg PO DAILY Qty: 30 RF: 0 Continued cholecalciferol (vitamin D3) 50 mcg (2,000 unit) capsule 50 mcg PO DAILY Qty: 30 RF: 5 levetiracetam 500 mg tablet 1,500 mg PO Q12H Qty: 180 RF: 3 metoprolol tartrate 50 mg tablet 50 mg PO Q12H Qty: 60 RF: 5 folic acid 1 mg tablet 1 mg PO DAILY Qty: 30 RF: 5 doxazosin 2 mg tablet 2 mg PO DAILY Qty: 30 RF: 5 duloxetine 30 mg capsule,delayed release(DR/EC) 30 mg PO DAILY Qty: 30 RF: 5 pantoprazole 40 mg tablet,delayed release (DR/EC) 40 mg PO BID Qty: 60 RF: 5 Discontinued meloxicam 15 mg tablet 15 mg PO HS RF: 0 ibuprofen 200 mg Tablet 400 mg PO Q6H PRN (Reason: Pain) RF: 0 Discharge Orders: Discharge Order (Routine); Ordered 08/30/21 Ordered By: Maribel Novak Admission Data Admit Date/Time: 08/29/21 00:25 Attending Provider: Maribel Novak Admit Provider: Tesfaye Osman Primary Care Provider: Marcelo Houston Other Providers: Prem Alejo ; Terrence Loyola Coding Level of Care Code D/C DAY MANAGEMENT >30 MINS Diagnoses Diplopia H53.2 CVA (cerebral vascular accident) I63.9 Hypertension I10 Seizure R56.9 Hypokalemia E87.6
--- NOTE | 2021-08-30 15:33 | Pharmacy Report ---
Pharmacist Stroke Counseling - Date of Service August 30, 2021 - Scope: Pharmacy has been consulted to provide medication discharge counseling for this patient admitted with [ischemic stroke] [hemorrhagic stroke] [transient ischemic attack] as per the Pharmacist Discharge Counseling for Stroke Patients Prot ocol. - Medications on Discharge: New Rx's Medication Instructions Recorded cholecalciferol (vitamin D3) 50 50 mcg PO DAILY #30 cap 07/20/20 mcg (2,000 unit) capsule pantoprazole 40 mg tablet,delayed 40 mg PO BID #60 tab 04/02/21 release levetiracetam 500 mg tablet 1,500 mg PO Q12H #180 tab 07/04/21 folic acid 1 mg tablet 1 mg PO DAILY #30 tab 07/06/21 metoprolol tartrate 50 mg tablet 50 mg PO Q12H #60 tab 07/06/21 doxazosin 2 mg tablet 2 mg PO DAILY #30 tab 07/23/21 duloxetine 30 mg capsule,delayed 30 mg PO DAILY #30 cap 08/29/21 release amlodipine 5 mg tablet 5 mg PO DAILY #30 tab 08/30/21 aspirin 81 mg tablet,delayed 81 mg PO QAM #30 tab 08/30/21 release atorvastatin 40 mg tablet 40 mg PO QAM #30 tab 08/30/21 clopidogrel 75 mg tablet 75 mg PO QAM #20 tab 08/30/21 - Action: The above medications, specifically ones for stroke treatment/prophylaxis, have been reviewed in detail with the patient prior to discharge. This includes indication, common adverse reactions, drug interactions, and medication administration. Medication counseling has been employed using the teach-back method to ensure understanding. - Outcome: The patient has demonstrated understanding of the medications. Additional comments: -no problems with counseling patient understanding Thank you for allowing pharmacy to be involved in the care of this patient. Please call [phone] with any additional questions
--- NOTE | 2021-09-03 21:37 | Billing Data ---
Date of Service September 03, 2021 Coding Level of Care Code 97266 Initial Inpt Care Lvl 3
== END 2021-08-30 17:30 | disposition home or self-care (01) ==
LOC: ED 14:31 → SUATTDRO 08-29 00:25 → INTOOBSV 08-29 00:25 → 2N 08-29 00:25

== ENCOUNTER 2022-09-10 03:36 | Observation (INO) ==
[~2022-09-10 03:36] MED LIST changes: -DILT240C74 PO; -DOXY100C76 PO; -ERGO500037 PO; -MAGN400T6 PO; +fentaNYL citrate 100 MCG/2 ML VIAL ONE
--- NOTE | 2022-09-10 03:48 | Emergency Department Note ---
History of Present Illness General Chief complaint: Hip Pain Stated complaint: ABD History of Present Illness 62-year-old male presents emergency department complaints of 3 nonsyncopal fall landing on his right shoulder and his right hip. Patient complains of right hip pain. Patient did not hit his head. Patient is nonambulatory since the event. Patient denies chest pain shortness of breath abdominal pain nausea vomiting. There are no other mitigating or alleviating factors Home Medications Medication Instructions Recorded Confirmed Type cholecalciferol (vitamin D3) 50 50 mcg PO DAILY #30 caps 07/20/20 06/18/22 Rx mcg (2,000 unit) capsule aspirin 81 mg tablet,delayed 81 mg PO QAM #30 tabs 08/30/21 06/18/22 Rx release clopidogrel 75 mg tablet 75 mg PO QAM #20 tabs 08/30/21 06/18/22 Rx amlodipine 10 mg tablet 10 mg PO DAILY #90 tabs 12/12/21 06/18/22 Rx levetiracetam 500 mg tablet 1,500 mg PO Q12H #540 tabs 05/31/22 06/18/22 Rx doxazosin 2 mg tablet 2 mg PO DAILY #90 tabs 07/22/22 Rx metoprolol tartrate 50 mg tablet 50 mg PO Q12H #180 tabs 07/22/22 Rx atorvastatin 40 mg tablet 40 mg PO QAM #30 tabs 07/23/22 Rx folic acid 1 mg tablet 1 mg PO DAILY #90 tabs 07/26/22 Rx duloxetine 30 mg capsule,delayed 30 mg PO DAILY #30 caps 08/19/22 Rx release pantoprazole 40 mg tablet,delayed See Rx Instructions .Route 09/09/22 Rx release .COMPLEX #180 tabs Allergies Allergy/AdvReac Type Severity Reaction Status Date / Time No Known Allergies Allergy Verified 06/18/22 14:07 Past Med/Surg History Medical History (Updated 09/10/22 @ 03:47 by Naeem Carter DO) Abnormal MRI of head Alcohol withdrawal hallucinosis Alcohol withdrawal seizure PT DENIES Arthritis COVID-19 03/01/22 CVA (cerebral vascular accident) Elevated liver enzymes Hx of gout Hx of intracranial hemorrhage MARCH 2020>DRUG INDUCED COMA AT [place]. "HAD A FEEDING TUBE SHORT TERM". PT UNSURE OF DETAILS Hypertension Lyme disease Seizure MARCH 2020 (FELL AND HIT HEAD>DRUG INDUCED COMA/HOSPITALIZED AT [facility]) FOLLOWS WITH [facility] Syncope Surgical History H/O wrist surgery RT Hx of wisdom tooth extraction Family History (Updated 12/12/21 @ 13:32 by ARNAV Cooney) Other No family history of adverse response to anesthesia No significant family history Denies family history of Prostate cancer Breast cancer Colorectal cancer Social History (Updated 06/18/22 @ 14:10 by Gabi Marinelli LPN) Smoking Status: Never smoker Tobacco Type: Smokeless Tobacco (Dip or Chew) Second Hand Exposure: No; Hx Alcohol Use: Yes Alcohol type: beer Hx Substance Use: No Preferred Language: [place]ese Communication Ability: Effective Housekeeper Manager Required: No Beliefs That Will Affect Care: None marital status: Current Living Situation: Spouse Feels Safe at Home: Yes caffeine: Yes Dental Care, Regularly: No Assistive Devices: None and Glasses Review of Systems A total of 10 systems reviewed and were otherwise negative Constitutional: no fever Respiratory: no cough Cardiovascular: no chest pain Musculoskeletal: + joint pain Physical Exam Vital Signs Vital Signs - 24 hr 09/10/22 03:46 09/10/22 03:54 Pulse Rate [Apical] 67 68 Pulse Rhythm [Apical] Regular Regular Pulse Strength [Apical] Normal Respiratory Rate 16 16 Respiratory Effort / Characteristics Non-Labored Non-Labored Respiratory Depth Normal Normal Respiratory Pattern Regular Regular Blood Pressure [Right Arm] 117/77 120/77 Blood Pressure Mean [Right Arm] 90 91 Pulse Oximetry 92 92 Oxygen Delivery Method Room Air Nasal Cannula Nasal Cannula Oxygen Flow Rate 2 2 GENERAL: Patient is awake alert in no acute distress patient is resting comfortably and showing no signs of anxiety EYES: The conjunctivae are clear. The pupils are round and reactive. EARS, NOSE, MOUTH AND THROAT: The nose is without any evidence of any deformity. Mucous membranes are moist. Tongue is midline. NECK: The neck is nontender and supple. RESPIRATORY: Normal respiratory effort is noted there is no evidence of wheezing rhonchi or rales CARDIOVASCULAR: Regular rate and rhythm noted there no murmurs rubs or gallops normal S1 normal S2. GASTROINTESTINAL: The abdomen is soft. Abdomen is nontender. PELVIS: The Pelvis is stable. No tenderness to palpation is noted. BACK: No midline tenderness or or step-off noted range of motion in flexion extension as well as rotation no signs of muscle spasm noted MUSCULOSKELETAL/EXTREMITIES: Tenderness to the right shoulder there is full range of motion. Patient is neurovascularly intact distally, right hip patient has his knee in flexion he is tender at the right hip laterally he is neurovascularly intact distally there is no other signs of trauma SKIN: There is no obvious evidence of any rash. There are no petechiae, pallor or cyanosis noted. NEUROLOGIC: Patient is awake alert and oriented x; GCS of 15 Course Reevaluation(s) Reevaluation #1: Patient was started on IV pain medicine. Patient was found to have a right hip fracture. Patient will be admitted to the medicine team. Time: 04:28 Consultations [facility] Time: 04:28 Medical Decision Making Medical Records Attestation: I reviewed the patient's medical records. Home Medications Current Medication List: was personally reviewed by me Laboratory Data Attestation: I reviewed the patient's lab results. Result diagrams: 09/10/22 01:38 09/10/22 01:38 Lab Results 09/10/22 09/10/22 09/10/22 Range/Units 01:38 01:38 01:38 WBC 12.92 H (4.8-10.8) K/ul RBC 4.37 L (4.63-6.08) M/uL Hgb 13.4 L (14.0-18.0) g/dl Hct 38.6 L (40.1-51.0) % MCV 88.3 (80.0-100.0) fL MCH 30.7 (25.0-34.0) pg MCHC 34.7 (32.0-36.0) g/dL RDW Std Deviation 41.3 (36.4-46.3) fL RDW Coeff of Odin 12.7 (11.5-14.5) % Plt Count 216 (130-400) K/uL MPV 11.3 (9.4-12.4) fL PT 10.8 (9.0-12.0) Seconds INR 1.0 (0.9-1.1) APTT 28.9 (21.0-31.0) Seconds PTT Ratio 1.1 Sodium 133 L (136-145) mmol/L Potassium 3.9 (3.5-5.1) mmol/L Chloride 99 (98-107) mmol/L Carbon Dioxide 26 (21-32) mmol/L Anion Gap 8 (3-11) BUN 11 (6-23) mg/dl Creatinine 1.13 (0.6-1.4) mg/dl Est Cr Clr Drug Dosing Not Reportable Est GFR ( Amer) 79.7 ml/min Est GFR (Non-Af Amer) 68.8 ml/min BUN/Creatinine Ratio 9.7 L (10-20) Glucose 109 H (70-99(Fasting)) mg/dl Calcium 8.3 L (8.5-10.1) mg/dl Total Bilirubin 0.4 (0.2-1.0) mg/dl AST 20 (13-39) U/L ALT 11 (7-52) U/L Alkaline Phosphatase 65 (34-104) U/L Total Protein 6.8 (6.0-8.3) gm/dl Albumin 3.8 (3.4-5.0) gm/dl Globulin 3.0 (2.5-4.0) gm/dl Albumin/Globulin Ratio 1.3 (0.9-2) Imaging Data Attestation: I personally reviewed and interpreted this imaging study as follows: My Impression: Chest x-ray poor inspiratory effort slight increase in mediastinum, no obvious infiltrate Right shoulder x-rays there is an irregularity of the glenoid location Right hip and pelvis x-rays interpreted by me positive for subcapital femoral neck fracture MDM Narrative Medical decision making differential diagnosis right hip fracture right hip strain right hip contusion right shoulder strain shoulder contusion. Plan is to check labs, x-rays, admit Patient was evaluated for fall with right hip pain. Patient found to have a right hip fracture. Patient is in stable condition otherwise does not appear that this was syncope. Case was discussed with the hospitalist for admission. Patient will be admitted for orthopedic evaluation due to right hip fracture. Impression & Plan Closed fracture of right hip Discharge Plan Visit Data Chief Complaint: Hip Pain Stated Complaint: ABD ED Provider: Naeem Carter Discharge Problem: Closed fracture of right hip Patient Disposition: Being Evaluated by Hospitalist Forms Stand Alone Forms: My [facility] Prescriptions Prescriptions: No Action cholecalciferol (vitamin D3) 50 mcg (2,000 unit) capsule 50 mcg PO DAILY Qty: 30 5RF Label Comments: TAKES HS levetiracetam 500 mg tablet 1,500 mg PO Q12H Qty: 540 3RF doxazosin 2 mg tablet 2 mg PO DAILY Qty: 90 3RF metoprolol tartrate 50 mg tablet 50 mg PO Q12H Qty: 180 3RF atorvastatin 40 mg tablet 40 mg PO QAM Qty: 30 11RF folic acid 1 mg tablet 1 mg PO DAILY Qty: 90 3RF duloxetine 30 mg capsule,delayed release(DR/EC) 30 mg PO DAILY Qty: 30 5RF pantoprazole 40 mg tablet,delayed release (DR/EC) See Rx Instructions .ROUTE .COMPLEX Qty: 180 3RF Dose Instruction: TAKE ONE TABLET BY MOUTH TWICE DAILY Rx Instructions: TAKE ONE TABLET BY MOUTH TWICE DAILY amlodipine 10 mg tablet 10 mg PO DAILY Qty: 90 3RF clopidogrel 75 mg Tablet 75 mg PO QAM Qty: 20 0RF aspirin 81 mg Tablet,Delayed Release (Dr/Ec) 81 mg PO QAM Qty: 30 0RF Referrals Referrals: Marcelo Houston MD [Primary Care Provider] -
[2022-09-10 04:01] LABS: Partial Thromboplastin Ratio 1.1; Partial Thromboplastin Time 28.9 Seconds (21.0-31.0); Prothrombin Time 10.8 Seconds (9.0-12.0)
[2022-09-10 04:07] LABS: Hematocrit (blood only) 38.6 % (40.1-51.0); Hemoglobin 13.4 g/dl (14.0-18.0); Mean Corpuscular Hemoglobin 30.7 pg (25.0-34.0); Mean Corpuscular Hgb Conc 34.7 g/dL (32.0-36.0); Mean Corpuscular Volume 88.3 fL (80.0-100.0); Mean Platelet Volume 11.3 fL (9.4-12.4); Platelet Count 216 K/uL (130-400); RDW Coefficient of Variation 12.7 % (11.5-14.5); RDW Standard Deviation 41.3 fL (36.4-46.3); Red Blood Count 4.37 M/uL (4.63-6.08); White Blood Count 12.92 K/ul (4.8-10.8)
[2022-09-10 04:11] LABS: Albumin Globulin Ratio 1.3 (0.9-2); Albumin Level 3.8 gm/dl (3.4-5.0); Chloride 99 mmol/L (98-107); Glucose 109 mg/dl (70-99(Fasting)); Total Protein 6.8 gm/dl (6.0-8.3)
[2022-09-10] MEDS ORDERED: fentaNYL citrate 100 MCG/2 ML VIAL IV STA (04:16)
[2022-09-10 04:23] LABS: Alanine Aminotransferase 11 U/L (7-52); Alkaline Phosphatase 65 U/L (34-104); Anion Gap 8 (3-11); Aspartate Aminotransferase 20 U/L (13-39); BUN Creatinine Ratio 9.7 (10-20); Bilirubin,Total 0.4 mg/dl (0.2-1.0); Blood Urea Nitrogen 11 mg/dl (6-23); Calcium 8.3 mg/dl (8.5-10.1); Carbon Dioxide 26 mmol/L (21-32); Est GFR (African American) 79.7 ml/min; Est GFR (Non-African American) 68.8 ml/min; Potassium 3.9 mmol/L (3.5-5.1); Sodium 133 mmol/L (136-145)
--- NOTE | 2022-09-10 04:29 | History & Physical Report ---
Date of Service September 10, 2022 Assessment & Plan (1) Closed fracture of right hip: Plan: 62yo male s/p ground level fall resulting in right subcapital hip fracture. -Admit to medical -Keep NPO -LR at 100mL/hr x 2L -Hold ASA and Plavix -Orthopedics consultation appreciated -Pain control with Morphine PRN -zofran PRN nausea -Bowel regimen (2) Hypertension: Plan: Blood pressure well controlled at present -Continue Amlodipine -Continue Metoprolol -Monitor (3) Ataxic gait: Plan: Multifactorial - secondary to EtOH use, prior falls -Fall precautions -PT/OT evaluation (4) Seizure: Plan: Well controlled -Continue Keppra 1500mg po BID (5) CVA (cerebral vascular accident): Plan: Prior CVA -Hold ASA and Plavix for possible surgery -Continue Atorvastatin History of Present Illness Chief Complaint: fall Primary Care Provider: Marcelo Houston MD Sudarshan Rodríguez is a 62you male with history of prior TBI, Seizure disorder and cerebellar ataxia, unsteady gait at baseline presenting after ground level fall this evening. Patient was walking in his home from the living room to the bedroom and possibly became entangled in a blanket causing him to fall. He denies head trauma or LOC but does not fully recollect the events. He has pain in his right shoulder and right hip. Otherwise denies fever, chills, cough, SOB, abdominal pain, nausea, vomiting, diarrhea or constipation. No additional complaints at this time. Patient with history of EtOH abuse and prior withdrawals. He no longer drinks regularly. Occasionally has a NA beer. He had three beers tonight which he thought were NA, but his states that they were actually 8% alcohol beers. Allergies Allergy/AdvReac Type Severity Reaction Status Date / Time No Known Allergies Allergy Verified 06/18/22 14:07 Home Medications Medication Instructions Recorded Confirmed Type cholecalciferol (vitamin D3) 50 50 mcg PO DAILY #30 caps 07/20/20 06/18/22 Rx mcg (2,000 unit) capsule aspirin 81 mg tablet,delayed 81 mg PO QAM #30 tabs 08/30/21 06/18/22 Rx release clopidogrel 75 mg tablet 75 mg PO QAM #20 tabs 08/30/21 06/18/22 Rx amlodipine 10 mg tablet 10 mg PO DAILY #90 tabs 12/12/21 06/18/22 Rx levetiracetam 500 mg tablet 1,500 mg PO Q12H #540 tabs 05/31/22 06/18/22 Rx doxazosin 2 mg tablet 2 mg PO DAILY #90 tabs 07/22/22 Rx metoprolol tartrate 50 mg tablet 50 mg PO Q12H #180 tabs 07/22/22 Rx atorvastatin 40 mg tablet 40 mg PO QAM #30 tabs 07/23/22 Rx folic acid 1 mg tablet 1 mg PO DAILY #90 tabs 07/26/22 Rx duloxetine 30 mg capsule,delayed 30 mg PO DAILY #30 caps 08/19/22 Rx release pantoprazole 40 mg tablet,delayed See Rx Instructions .Route 09/09/22 Rx release .COMPLEX #180 tabs Past Med/Surg History Medical History (Updated 09/10/22 @ 03:47 by Naeem Carter, DO) Abnormal MRI of head Alcohol withdrawal hallucinosis Alcohol withdrawal seizure PT DENIES Arthritis COVID-19 03/01/22 CVA (cerebral vascular accident) Elevated liver enzymes Hx of gout Hx of intracranial hemorrhage MARCH 2020>DRUG INDUCED COMA AT [place]. "HAD A FEEDING TUBE SHORT TERM". PT UNSURE OF DETAILS Hypertension Lyme disease Seizure MARCH 2020 (FELL AND HIT HEAD>DRUG INDUCED COMA/HOSPITALIZED AT [facility]) FOLLOWS WITH [facility] Syncope Surgical History H/O wrist surgery RT Hx of wisdom tooth extraction Family History (Updated 12/12/21 @ 13:32 by ARNAV Cooney) Other No family history of adverse response to anesthesia No significant family history Denies family history of Prostate cancer Breast cancer Colorectal cancer Social History (Updated 06/18/22 @ 14:10 by Gabi Marinelli LPN) Smoking Status: Never smoker Tobacco Type: Smokeless Tobacco (Dip or Chew) Second Hand Exposure: No; Hx Alcohol Use: Yes Alcohol type: beer Hx Substance Use: No Preferred Language: Thai Communication Ability: Effective Superintendent Automotive Required: No Beliefs That Will Affect Care: None marital status: Current Living Situation: Spouse Feels Safe at Home: Yes caffeine: Yes Dental Care, Regularly: No Assistive Devices: None and Glasses Review of Systems Review of Systems: All systems reviewed & are unremarkable except as noted in HPI & below Physical Exam Physical Exam: General: patient resting comfortably, NAD, non-toxic in appearance, AA&O x 4 Skin: warm, dry, intact, no rashes or lesions HEENT: NC/AT, PERRL, EOMI, anicteric sclera, conjunctiva without injection, external ear normal to inspection and nontender, nares patent, moist mucus membranes, dentition intact, no oropharyngeal lesions, neck supple, trachea midline, no LAD, no thyromegaly, no JVD Heart: +S1/S2, regular, no m/r/g Lungs: equal air entry bilaterally, no rales/rhonchi/wheezes Abd: +BS, soft, NT/ND, no masses/organomegaly/ascites Ext: warm, 2+ pulses in UE/LE bilaterally, no clubbing/cyanosis or edema, pain with palpation right hip and right shoulder Neuro: nonfocal, patient AA&O x 4, speech intact, no facial droop, moving all extremities on command with equal strength 5/5 Results & Data Results & Data ([facility]) Vital Signs (Past 12 Hours) Vital Signs Pulse Resp BP Pulse Ox O2 Del Method O2 Flow Rate 09/10/22 03:54 68 16 120/77 92 Nasal Cannula 2 09/10/22 03:46 67 16 117/77 92 Room Air, Nasal Cannula 2 Laboratory Results Laboratory Results WBC 12.92 K/ul (4.8-10.8) H 09/10/22 01:38 RBC 4.37 M/uL (4.63-6.08) L 09/10/22 01:38 Hgb 13.4 g/dl (14.0-18.0) L 09/10/22 01:38 Hct 38.6 % (40.1-51.0) L 09/10/22 01:38 MCV 88.3 fL (80.0-100.0) 09/10/22 01:38 MCH 30.7 pg (25.0-34.0) 09/10/22 01:38 MCHC 34.7 g/dL (32.0-36.0) 09/10/22 01:38 RDW Std Deviation 41.3 fL (36.4-46.3) 09/10/22 01:38 RDW Coeff of Odin 12.7 % (11.5-14.5) 09/10/22 01:38 Plt Count 216 K/uL (130-400) 09/10/22 01:38 MPV 11.3 fL (9.4-12.4) 09/10/22 01:38 PT 10.8 Seconds (9.0-12.0) 09/10/22 01:38 INR 1.0 (0.9-1.1) 09/10/22 01:38 APTT 28.9 Seconds (21.0-31.0) 09/10/22 01:38 PTT Ratio 1.1 09/10/22 01:38 Sodium 133 mmol/L (136-145) L 09/10/22 01:38 Potassium 3.9 mmol/L (3.5-5.1) 09/10/22 01:38 Chloride 99 mmol/L (98-107) 09/10/22 01:38 Carbon Dioxide 26 mmol/L (21-32) 09/10/22 01:38 Anion Gap 8 (3-11) 09/10/22 01:38 BUN 11 mg/dl (6-23) 09/10/22 01:38 Creatinine 1.13 mg/dl (0.6-1.4) 09/10/22 01:38 Est Cr Clr Drug Dosing Not Reportable 09/10/22 01:38 Est GFR ( Amer) 79.7 ml/min 09/10/22 01:38 Est GFR (Non-Af Amer) 68.8 ml/min 09/10/22 01:38 BUN/Creatinine Ratio 9.7 (10-20) L 09/10/22 01:38 Glucose 109 mg/dl (70-99(Fasting)) H 09/10/22 01:38 Calcium 8.3 mg/dl (8.5-10.1) L 09/10/22 01:38 Total Bilirubin 0.4 mg/dl (0.2-1.0) 09/10/22 01:38 AST 20 U/L (13-39) 09/10/22 01:38 ALT 11 U/L (7-52) 09/10/22 01:38 Alkaline Phosphatase 65 U/L (34-104) 09/10/22 01:38 Total Protein 6.8 gm/dl (6.0-8.3) 09/10/22 01:38 Albumin 3.8 gm/dl (3.4-5.0) 09/10/22 01:38 Globulin 3.0 gm/dl (2.5-4.0) 09/10/22 01:38 Albumin/Globulin Ratio 1.3 (0.9-2) 09/10/22 01:38 SARS-CoV-2, RNA, NAAT NEGATIVE (NEGATIVE) 09/10/22 03:54 Code Status & VTE Plan VTE Prophylaxis Plan VTE Prophylaxis will be ordered: Yes PG Care Time/CCT Total # of Minutes Spent Total Time Spent with Patient: Total time spent is greater than 50% in coordination of care (as documented) at patient's floor/unit and/or counseling patient: Coding Level of Care Code 60596 Initial Inpt Care Lvl 3 Diagnoses Closed fracture of right hip S72.001A Hypertension I10 Ataxic gait R26.0 Seizure R56.9 CVA (cerebral vascular accident) I63.9
[2022-09-10] MEDS ORDERED: MAGNESIUM HYDROXIDE SUSP 30 ML UDC PO PRN (05:43)
[2022-09-10] MEDS ORDERED: NALOXONE HCL 0.4 MG/1 ML VIAL/CARP IV PRN (05:43)
[2022-09-10] MEDS ORDERED: MoRPHine SULFATE 2 MG/ML CARP IV PRN (05:43)
[2022-09-10] MEDS ORDERED: ACETAMINOPHEN 325 MG TAB PO PRN (05:43)
[2022-09-10] MEDS ORDERED: bisacodyL 10 MG SUPP PR PRN (05:43)
[2022-09-10] MEDS: MoRPHine SULFATE 4 MG/ML 1 ML CARP\\VIAL IV PRN ×2 (05:55→08:48)
[2022-09-10] MEDS: LACTATED RINGER'S 1,000 ML IV SCH ×2 (05:56→16:55)
[2022-09-10 07:22] LABS: Magnesium 1.9 mg/dl (1.7-2.4); Phosphorus 2.5 mg/dl (2.5-4.9)
--- NOTE | 2022-09-10 07:40 | Hospitalist Progress Note ---
Date of Service September 10, 2022 Assessment & Plan (1) Closed fracture of right hip: Plan: 62yo male with history of TBI, seizure disorder, cerebellar ataxia who presented to the hospital following mechanical ground level fall resulting in right subcapital hip fracture. Right hip fracture -Following mechanical fall -Patient evaluated by orthopedic surgery: Right ORIF of hip scheduled for 9:[address] Waqas Dueñas. * Keep NPO * LR at 100mL/hr x 2L * Hold ASA and Plavix * Pain control with Morphine PRN, scheduled IV Tylenol 1000 mg every 8 hours * Zofran PRN nausea * Bowel regimen Right humerus fracture -conservative management with sling and pain control Hypertension -Blood pressure currently well controlled * Continue home amlodipine, metoprolol * Trend vitals Ataxic gait * Fall precautions * PT/OT evaluation Prior CVA * Home atorvastatin Seizure * Home p.o. Keppra 1500 mg twice daily Code: Full code Dispo: Med-Surg FEN/GI: N.p.o. DVT Prophylaxis: SCDs PT/OT: Yes Consults: Ortho (2) Hypertension: (3) Ataxic gait: (4) Seizure: (5) CVA (cerebral vascular accident): Plan: Prior CVA -Hold ASA and Plavix for possible surgery -Continue Atorvastatin Admission and Anticipated Discharge Date Admission Date: September 10, 2022 Supervising Physician Co-Signing Physician Notes Resident Physician Supervision Note: I independently interviewed and examined the patient and verified the matias history and physical, reviewed labs and image studies and agree with resident findings and care plan. Subjective No acute events overnight. Patient already seen by orthopedic surgery, tentatively scheduled for ORIF today at 9:[address] Waqas Dueñas. At bedside this morning, he complains of hip pain, back pain, and right-sided sciatic back pain shooting to his anterior thigh. He received IV morphine about 30 minutes before our encounter. He denies shortness of breath, chest pain. Review of Systems Review of Systems: All systems reviewed & are unremarkable except as noted in HPI & below Physical Exam Physical Exam: General: In mild to moderate distress HEENT: PERRLA. Normal conjunctiva, anicteric sclera. Oropharynx normal. Respiratory: Normal respiratory effort, CTA BL. Cardiovascular: RRR without murmurs, gallops, or rubs. No edema. GI: Soft abdomen with normal bowel sounds heard on auscultation. Nontender x4 quadrants Neuro: Alert and oriented x3. Results & Data Results & Data ([facility]) Vital Signs (Past 12 Hours) Vital Signs Temp Pulse Pulse Pulse Resp BP BP 09/10/22 06:38 71 18 09/10/22 05:45 09/10/22 06:03 37.0 C 70 20 118/75 09/10/22 05:20 37.8 C H 86 16 131/90 09/10/22 04:52 67 16 133/80 09/10/22 03:54 68 16 120/77 09/10/22 03:46 67 16 117/77 Pulse Ox O2 Del Method O2 Flow Rate 09/10/22 06:38 92 Nasal Cannula 3.0 09/10/22 05:45 Nasal Cannula 3 09/10/22 06:03 90 Nasal Cannula 3 09/10/22 05:20 91 Nasal Cannula 3 09/10/22 04:52 91 Nasal Cannula 3 09/10/22 03:54 92 Nasal Cannula 2 09/10/22 03:46 92 Room Air, Nasal Cannula 2 Resident Activity Tracking Resident Involvement: Resident Care Provided Care Provided: Adult Hospital Medicine
[2022-09-10] MEDS: FOLIC ACID 1 MG TAB PO SCH (07:45)
[2022-09-10] MEDS: PANTOprazole 40 MG TAB PO SCH ×2 (07:45→21:48)
[2022-09-10] MEDS: DULoxetine HCL 30 MG CAP PO SCH (07:45)
[2022-09-10] MEDS: ATORVASTATIN 40 MG TAB PO SCH (07:45)
[2022-09-10] MEDS: DOXAZosin MESYLATE TAB 2 MG TAB PO SCH (07:45)
[2022-09-10] MEDS: levETIRAcetam 500 MG TAB PO SCH ×2 (07:45→21:49)
[2022-09-10] MEDS: METOPROLOL TARTRATE 50 MG TAB PO SCH ×2 (07:46→21:48)
[2022-09-10] MEDS: amLODIPine BESYLATE 5 MG TAB PO SCH (07:46)
--- NOTE | 2022-09-10 08:17 | Electrocardiogram Report ---
Test Reason : Blood Pressure : / mmHG Vent. Rate : 071 BPM Atrial Rate : 070 BPM P-R Int : 000 ms QRS Dur : 084 ms QT Int : 422 ms P-R-T Axes : 000 022 075 degrees QTc Int : 458 ms Poor data quality, interpretation may be adversely affected Probable Sinus rhythm Diffuse Minor Nonspecific T wave abnormality Abnormal ECG When compared with ECG of 28-AUG-2021 22:48, P waves less apparent due to artifact Confirmed by Bernardo Corral ([id number]) on 09/10/2022 8:17:40 AM Referred By: REFERRED SELF Confirmed By:Bernardo Corral
--- NOTE | 2022-09-10 08:28 | History & Physical Bridge Note ---
Date of Service September 10, 2022 History & Physical Bridge Note I have examined the patient, reviewed the hosptialist History & Physical and in the interval since the performance of the History & Physical I have noted the following changes of clinical significance: no changes noted
--- NOTE | 2022-09-10 09:22 | XRay Report ---
XR hip RT 2V w pelvis, XR hip RT 1V CLINICAL HISTORY: FALL, EVAL FOR HIP FX TECHNIQUE: 2 views of the right hip and single frontal view of the pelvis were obtained. At 0240 hour s. A single cross table view of the right hip was performed at 0855 hours. Comparison: None available at the time of this dictation. FINDINGS: 0240 hours: There is an impacted fracture of the femoral neck, likely subcapital, which appears to be mildly comm inuted. Joint spaces are well-preserved. Soft tissue swelling is seen. 0855 hours: Highly limited visualization of the femoral neck with essentially unchanged appearance. IMPRESSION: Right femoral neck fracture with associated soft tissue swelling. ACT 112: Negative or not required by law. Electronically signed by: James Feliz M.D. 09/10/2022 9:21 AM
[2022-09-10] MEDS ORDERED: ACETAMINOPHEN 1,000 MG/100 ML VIAL IV STA (09:32)
[2022-09-10] MEDS ORDERED: ceFAZolin 2000MG 2,000 MG/15 ML SYR IV ONE (09:52)
--- NOTE | 2022-09-10 10:01 | Orthopedic Consultation ---
Date of Consultation September 10, 2022 Assessment & Plan (1) Closed fracture of right hip: Dr. Dueñas discussed Xray findings with pt and surgical intervention vs conservative treatment Risks and benefits of each were discussed. Written consent was obtained Pt has been NPO, Holding ASA and Plavix Orders placed Pt will be taken to the OR for a right closed subcapital fracture of the right hip reduction with percutaneous pinning with screw fixation Present on Admission?: Yes Supervising Physician Co-Signing Physician Notes I, Dr. Dueñas, saw and examined the patient and discussed the management with my PA. I reviewed my PAs note and agree with the documented findings and the plan of care I developed. History of Present Illness Attending Physician: Renetta Michaud MD History of Present Illness Pt is a 62yo male with history of TBI, seizure disorder, cerebellar ataxia who presented to the hospital following mechanical ground level fall resulting in right subcapital hip fracture. Orthopedic services were consulted as a result of the fracture. He was seen bedside with Dr. Dueñsa this am. He explains he was ambulating in his bedroom and is unsure if he got tangled in a blanket. He states he fell onto the right shoulder and hip. He states he has severe pain in the right hip. He denies any other injuries. He denies hitting his head. He is on plavix and aspirin hx of CVA. Allergies Allergy/AdvReac Type Severity Reaction Status Date / Time No Known Allergies Allergy Verified 06/18/22 14:07 Home Medications Medication Instructions Recorded Confirmed Type cholecalciferol (vitamin D3) 50 50 mcg PO DAILY #30 caps 07/20/20 06/18/22 Rx mcg (2,000 unit) capsule aspirin 81 mg tablet,delayed 81 mg PO QAM #30 tabs 08/30/21 06/18/22 Rx release clopidogrel 75 mg tablet 75 mg PO QAM #20 tabs 08/30/21 06/18/22 Rx amlodipine 10 mg tablet 10 mg PO DAILY #90 tabs 12/12/21 06/18/22 Rx levetiracetam 500 mg tablet 1,500 mg PO Q12H #540 tabs 05/31/22 06/18/22 Rx doxazosin 2 mg tablet 2 mg PO DAILY #90 tabs 07/22/22 Rx metoprolol tartrate 50 mg tablet 50 mg PO Q12H #180 tabs 07/22/22 Rx atorvastatin 40 mg tablet 40 mg PO QAM #30 tabs 07/23/22 Rx folic acid 1 mg tablet 1 mg PO DAILY #90 tabs 07/26/22 Rx duloxetine 30 mg capsule,delayed 30 mg PO DAILY #30 caps 08/19/22 Rx release pantoprazole 40 mg tablet,delayed See Rx Instructions .Route 09/09/22 Rx release .COMPLEX #180 tabs Patient History Medical History Abnormal MRI of head Alcohol withdrawal hallucinosis Alcohol withdrawal seizure PT DENIES Arthritis COVID-19 03/01/22 CVA (cerebral vascular accident) Elevated liver enzymes Hx of gout Hx of intracranial hemorrhage MARCH 2020>DRUG INDUCED COMA AT [place]. "HAD A FEEDING TUBE SHORT TERM". PT UNSURE OF DETAILS Hypertension Lyme disease Seizure MARCH 2020 (FELL AND HIT HEAD>DRUG INDUCED COMA/HOSPITALIZED AT [facility]) FOLLOWS WITH [facility] Syncope Surgical History H/O wrist surgery RT Hx of wisdom tooth extraction Family History Other No family history of adverse response to anesthesia No significant family history Denies family history of Prostate cancer Breast cancer Colorectal cancer Social History Smoking Status: Never smoker Tobacco Type: Smokeless Tobacco (Dip or Chew) Second Hand Exposure: No; Hx Alcohol Use: Yes Alcohol type: beer Hx Substance Use: No Preferred Language: Bulgarian Communication Ability: Effective Teacher Advisor Required: No Beliefs That Will Affect Care: None marital status: Current Living Situation: Spouse and Family Feels Safe at Home: Yes caffeine: Yes Dental Care, Regularly: No Assistive Devices: Glasses Review of Systems Review of Systems: Per HPI Physical Exam Physical Exam: General: Pt is alert and oriented answering questions appropriately Musculoskeletal: deferred due to pain Results & Data ([place]) Vital Signs (Past 12 Hours) Vital Signs Temp Pulse Pulse Pulse Resp BP BP 09/10/22 07:43 36.9 C 74 16 126/76 09/10/22 06:38 71 18 09/10/22 05:45 09/10/22 06:03 37.0 C 70 20 118/75 09/10/22 05:20 37.8 C H 86 16 131/90 09/10/22 04:52 67 16 133/80 09/10/22 03:54 68 16 120/77 09/10/22 03:46 67 16 117/77 Pulse Ox O2 Del Method O2 Flow Rate 09/10/22 07:43 90 Nasal Cannula 3 09/10/22 06:38 92 Nasal Cannula 3.0 09/10/22 05:45 Nasal Cannula 3 09/10/22 06:03 90 Nasal Cannula 3 09/10/22 05:20 91 Nasal Cannula 3 09/10/22 04:52 91 Nasal Cannula 3 09/10/22 03:54 92 Nasal Cannula 2 09/10/22 03:46 92 Room Air, Nasal Cannula 2 Laboratory Results 09/10/22 09/10/22 09/10/22 Range/Units 07:39 07:39 03:54 WBC (4.8-10.8) K/ul RBC (4.63-6.08) M/uL Hgb (14.0-18.0) g/dl Hct (40.1-51.0) % MCV (80.0-100.0) fL MCH (25.0-34.0) pg MCHC (32.0-36.0) g/dL RDW Std Deviation (36.4-46.3) fL RDW Coeff of Odin (11.5-14.5) % Plt Count (130-400) K/uL MPV (9.4-12.4) fL PT (9.0-12.0) Seconds INR (0.9-1.1) APTT (21.0-31.0) Seconds PTT Ratio Sodium (136-145) mmol/L Potassium (3.5-5.1) mmol/L Chloride (98-107) mmol/L Carbon Dioxide (21-32) mmol/L Anion Gap (3-11) BUN (6-23) mg/dl Creatinine (0.6-1.4) mg/dl Est Cr Clr Drug Dosing Est GFR ( Amer) ml/min Est GFR (Non-Af Amer) ml/min BUN/Creatinine Ratio (10-20) Glucose (70-99(Fasting)) mg/dl Calcium (8.5-10.1) mg/dl Phosphorus (2.5-4.9) mg/dl Magnesium (1.7-2.4) mg/dl Total Bilirubin (0.2-1.0) mg/dl AST (13-39) U/L ALT (7-52) U/L Alkaline Phosphatase (34-104) U/L Total Protein (6.0-8.3) gm/dl Albumin (3.4-5.0) gm/dl Globulin (2.5-4.0) gm/dl Albumin/Globulin Ratio (0.9-2) Ethyl Alcohol mg/dL < 10.0 (<10.0) mg/dl SARS-CoV-2, RNA, NAAT NEGATIVE (NEGATIVE) Blood Type O Negative Antibody Screen NEGATIVE 09/10/22 09/10/22 09/10/22 Range/Units 01:38 01:38 01:38 WBC 12.92 H (4.8-10.8) K/ul RBC 4.37 L (4.63-6.08) M/uL Hgb 13.4 L (14.0-18.0) g/dl Hct 38.6 L (40.1-51.0) % MCV 88.3 (80.0-100.0) fL MCH 30.7 (25.0-34.0) pg MCHC 34.7 (32.0-36.0) g/dL RDW Std Deviation 41.3 (36.4-46.3) fL RDW Coeff of Odin 12.7 (11.5-14.5) % Plt Count 216 (130-400) K/uL MPV 11.3 (9.4-12.4) fL PT 10.8 (9.0-12.0) Seconds INR 1.0 (0.9-1.1) APTT 28.9 (21.0-31.0) Seconds PTT Ratio 1.1 Sodium (136-145) mmol/L Potassium (3.5-5.1) mmol/L Chloride (98-107) mmol/L Carbon Dioxide (21-32) mmol/L Anion Gap (3-11) BUN (6-23) mg/dl Creatinine (0.6-1.4) mg/dl Est Cr Clr Drug Dosing Est GFR ( Amer) ml/min Est GFR (Non-Af Amer) ml/min BUN/Creatinine Ratio (10-20) Glucose (70-99(Fasting)) mg/dl Calcium (8.5-10.1) mg/dl Phosphorus 2.5 (2.5-4.9) mg/dl Magnesium 1.9 (1.7-2.4) mg/dl Total Bilirubin (0.2-1.0) mg/dl AST (13-39) U/L ALT (7-52) U/L Alkaline Phosphatase (34-104) U/L Total Protein (6.0-8.3) gm/dl Albumin (3.4-5.0) gm/dl Globulin (2.5-4.0) gm/dl Albumin/Globulin Ratio (0.9-2) Ethyl Alcohol mg/dL (<10.0) mg/dl SARS-CoV-2, RNA, NAAT (NEGATIVE) Blood Type Antibody Screen 09/10/22 Range/Units 01:38 WBC (4.8-10.8) K/ul RBC (4.63-6.08) M/uL Hgb (14.0-18.0) g/dl Hct (40.1-51.0) % MCV (80.0-100.0) fL MCH (25.0-34.0) pg MCHC (32.0-36.0) g/dL RDW Std Deviation (36.4-46.3) fL RDW Coeff of Odin (11.5-14.5) % Plt Count (130-400) K/uL MPV (9.4-12.4) fL PT (9.0-12.0) Seconds INR (0.9-1.1) APTT (21.0-31.0) Seconds PTT Ratio Sodium 133 L (136-145) mmol/L Potassium 3.9 (3.5-5.1) mmol/L Chloride 99 (98-107) mmol/L Carbon Dioxide 26 (21-32) mmol/L Anion Gap 8 (3-11) BUN 11 (6-23) mg/dl Creatinine 1.13 (0.6-1.4) mg/dl Est Cr Clr Drug Dosing Not Reportable Est GFR ( Amer) 79.7 ml/min Est GFR (Non-Af Amer) 68.8 ml/min BUN/Creatinine Ratio 9.7 L (10-20) Glucose 109 H (70-99(Fasting)) mg/dl Calcium 8.3 L (8.5-10.1) mg/dl Phosphorus (2.5-4.9) mg/dl Magnesium (1.7-2.4) mg/dl Total Bilirubin 0.4 (0.2-1.0) mg/dl AST 20 (13-39) U/L ALT 11 (7-52) U/L Alkaline Phosphatase 65 (34-104) U/L Total Protein 6.8 (6.0-8.3) gm/dl Albumin 3.8 (3.4-5.0) gm/dl Globulin 3.0 (2.5-4.0) gm/dl Albumin/Globulin Ratio 1.3 (0.9-2) Ethyl Alcohol mg/dL (<10.0) mg/dl SARS-CoV-2, RNA, NAAT (NEGATIVE) Blood Type Antibody Screen Diagnostic Findings Hip/Pelvis X-Ray 09/10/22 00:00 XR hip RT 2V w pelvis, XR hip RT 1V CLINICAL HISTORY: FALL, EVAL FOR HIP FX TECHNIQUE: 2 views of the right hip and single frontal view of the pelvis were obtained. At 0240 hours. A single cross table view of the right hip was performed at 0855 hours. Comparison: None available at the time of this dictation. FINDINGS: 0240 hours: There is an impacted fracture of the femoral neck, likely subcapital, which appears to be mildly comminuted. Joint spaces are well-preserved. Soft tissue swelling is seen. 0855 hours: Highly limited visualization of the femoral neck with essentially unchanged appearance. IMPRESSION: Right femoral neck fracture with associated soft tissue swelling. ACT 112: Negative or not required by law. Electronically signed by: James Feliz M.D. 09/10/2022 9:21 AM Hip X-Ray 09/10/22 07:31 XR hip RT 2V w pelvis, XR hip RT 1V CLINICAL HISTORY: FALL, EVAL FOR HIP FX TECHNIQUE: 2 views of the right hip and single frontal view of the pelvis were obtained. At 0240 hours. A single cross table view of the right hip was performed at 0855 hours. Comparison: None available at the time of this dictation. FINDINGS: 0240 hours: There is an impacted fracture of the femoral neck, likely subcapital, which appears to be mildly comminuted. Joint spaces are well-preserved. Soft tissue swelling is seen. 0855 hours: Highly limited visualization of the femoral neck with essentially unchanged appearance.
--- NOTE | 2022-09-10 10:07 | XRay Report ---
SINGLE VIEW CHEST CLINICAL HISTORY: Preoperative examination. Hip fracture. FINDINGS: An AP, portable, supine chest radiograph is compared to study dated 05/01/2020. The cardiomed iastinal silhouette is top normal for projection limiting atherosclerotic calcification of the thorac ic aorta. There is prominence of the pulmonary vasculature. Atelectasis is noted at both lung bases. The lungs and pleural spaces are otherwise clear. No pneumothorax is seen. The skeletal structures ar e osteopenic. There are healed bilateral rib fractures. IMPRESSION: 1. Apparent prominence of the pulmonary vasculature may be related to supine positioning. Correlate c linically for evidence of fluid overload/congestive change. 2. No airspace consolidation or large pleural effusion is identified. ACT 112: Negative or not required by law. Electronically signed by: Howie Cole M.D. 09/10/2022 10:06 AM
--- NOTE | 2022-09-10 11:06 | XRay Report ---
RIGHT SHOULDER 3 VIEWS CLINICAL HISTORY: Fall with right shoulder injury. FINDINGS: 3 views of the right shoulder are obtained. No prior studies are available for comparison a t the time of dictation. The skeletal structures appear osteopenic. There is a mildly displaced fract ure through the greater tuberosity of the humeral head. No additional fractures seen. There is no dis location. Mild arthritic change is present at the glenohumeral and acromioclavicular joints. Mild ove rlying soft tissue edema is noted. There are chronic/healed right-sided rib fractures. The right lung parenchyma appears clear noting basilar atelectasis. IMPRESSION: Right humeral head fracture as above. Electronically signed by: Howie Cole M.D. 09/10/2022 11:04 AM
[2022-09-10] MEDS ORDERED: PHENYLEPHRINE 100MCG/ML 5ML SYR ONE (12:36)
[2022-09-10] MEDS ORDERED: PROPOFOL IV EMULSION 10 MG/ML 20 ML VIAL IV ONE (12:36)
[2022-09-10] MEDS ORDERED: fentaNYL citrate 100 MCG/2 ML VIAL ONE (12:36)
[2022-09-10] MEDS ORDERED: ePHEDrine sulfate 50 MG/ML SYR ONE (12:36)
[2022-09-10] MEDS ORDERED: MIDAZOLAM HCL 1 MG/ML 2ML VIAL ONE (12:36)
[2022-09-10] MEDS ORDERED: LIDOCAINE 2% MPF LOCAL 5 ML VIAL INFIL ONE (12:36)
[2022-09-10] MEDS ORDERED: BUPIVACAINE 0.5 % 5 MG/1 ML PF 10ML VIAL ONE (12:47)
--- NOTE | 2022-09-10 12:48 | Anesthesiology Consultation ---
Date of Service September 10, 2022 Assessment & Plan (1) Encounter for pre-operative examination: Chart Review Chart Review: Acceptable Risk for Surgery History Surgery Operation Date: 09/10/22 09:40 Proposed Procedures p Right Open Reduction Internal Fixation Hip Cannulated Screw - Waqas Dueñas MD Height/Weight Height: 6 ft 2 in Weight: 84.5 kg Allergies Allergy/AdvReac Type Severity Reaction Status Date / Time No Known Allergies Allergy Verified 06/18/22 14:07 Medications Home Medications Medication Instructions Recorded Confirmed Last Taken cholecalciferol (vitamin D3) 50 50 mcg PO DAILY #30 caps 07/20/20 06/18/22 04/01/21 mcg (2,000 unit) capsule aspirin 81 mg tablet,delayed 81 mg PO QAM #30 tabs 08/30/21 06/18/22 Unknown release clopidogrel 75 mg tablet 75 mg PO QAM #20 tabs 08/30/21 06/18/22 Unknown amlodipine 10 mg tablet 10 mg PO DAILY #90 tabs 12/12/21 06/18/22 Unknown levetiracetam 500 mg tablet 1,500 mg PO Q12H #540 tabs 05/31/22 06/18/22 Unknown doxazosin 2 mg tablet 2 mg PO DAILY #90 tabs 07/22/22 Unknown metoprolol tartrate 50 mg tablet 50 mg PO Q12H #180 tabs 07/22/22 Unknown atorvastatin 40 mg tablet 40 mg PO QAM #30 tabs 07/23/22 Unknown folic acid 1 mg tablet 1 mg PO DAILY #90 tabs 07/26/22 Unknown duloxetine 30 mg capsule,delayed 30 mg PO DAILY #30 caps 08/19/22 Unknown release pantoprazole 40 mg tablet,delayed See Rx Instructions .Route 09/09/22 Unknown release .COMPLEX #180 tabs Active Medications Generic Name Dose Route Start Last Admin Trade Name Freq PRN Reason Stop Dose Admin Amlodipine Besylate 10 mg 09/10/22 09:00 09/10/22 07:46 Amlodipine Besylate 5 Mg Tab PO 10/10/22 08:59 Not Given DAILY VINNY Atorvastatin Calcium 40 mg 09/10/22 09:00 09/10/22 07:45 Atorvastatin 40 Mg Tab PO 10/10/22 08:59 40 mg QAM VINNY Administration Doxazosin Mesylate 2 mg 09/10/22 09:00 09/10/22 07:45 Doxazosin Mesylate Tab 2 Mg Tab PO 10/10/22 08:59 2 mg DAILY VINNY Administration Duloxetine HCl 30 mg 09/10/22 09:00 09/10/22 07:45 Duloxetine Hcl 30 Mg Cap PO 10/10/22 08:59 30 mg DAILY VINNY Administration Folic Acid 1 mg 09/10/22 09:00 09/10/22 07:45 Folic Acid 1 Mg Tab PO 10/10/22 08:59 1 mg DAILY VINNY Administration Lactated Ringer's 1,000 mls @ 100 mls/hr 09/10/22 05:43 09/10/22 05:56 Lr IV 09/11/22 01:42 100 mls/hr .Q10H VINNY Administration Levetiracetam 1,500 mg 09/10/22 09:00 09/10/22 07:45 Levetiracetam 500 Mg Tab PO 10/10/22 08:59 1,500 mg Q12H VINNY Administration Metoprolol Tartrate 50 mg 09/10/22 09:00 09/10/22 07:46 Metoprolol Tartrate 50 Mg Tab PO 10/10/22 08:59 Not Given Q12H VINNY Morphine Sulfate 4 mg 09/10/22 05:43 09/10/22 08:48 Morphine Sulfate 4 Mg/Ml 1 Ml Carp\\Vial IV 09/24/22 05:42 4 mg Q3H PRN Administration Pain (6,7,8,9,10) Pantoprazole Sodium 40 mg 09/10/22 09:00 09/10/22 07:45 Pantoprazole 40 Mg Tab PO 10/10/22 08:59 40 mg BID VINNY Administration NPO Date Last Intake of Fluids: 09/09/22 Past Medical History Medical History Abnormal MRI of head Alcohol withdrawal hallucinosis Alcohol withdrawal seizure PT DENIES Arthritis COVID-19 03/01/22 CVA (cerebral vascular accident) Elevated liver enzymes Hx of gout Hx of intracranial hemorrhage MARCH 2020>DRUG INDUCED COMA AT [place]. "HAD A FEEDING TUBE SHORT TERM". PT UNSURE OF DETAILS Hypertension Lyme disease Seizure MARCH 2020 (FELL AND HIT HEAD>DRUG INDUCED COMA/HOSPITALIZED AT [facility]) FOLLOWS WITH [facility] Syncope Past Family History Family History Other No family history of adverse response to anesthesia No significant family history Denies family history of Prostate cancer Breast cancer Colorectal cancer Past Surgical History Surgical History H/O wrist surgery RT Hx of wisdom tooth extraction Social History Smoking Status: Never smoker tobacco type: smokeless tobacco Do You Dip or Chew Tobacco: Yes (1 can/day) Hx Alcohol Use: Yes Alcohol type: beer alcohol intake frequency: a few times a week Alcohol Intake Frequency Comment: pt. states he drinks 3 cans/week; previous alcohol abuse hx Hx Substance Use: No substance use type: does not use Physical Exam Vital Signs Last Vital Signs Temp 36.9 C 09/10/22 07:43 Pulse 74 09/10/22 07:43 Resp 16 09/10/22 07:43 BP 126/76 09/10/22 07:43 Pulse Ox 92 09/10/22 08:00 O2 Del Method 09/10/22 08:00 O2 Flow Rate 3 09/10/22 07:43 Testing Laboratory Results 09/10/22 01:38 09/10/22 01:38 PT 10.8 Seconds (9.0-12.0) 09/10/22 01:38 INR 1.0 (0.9-1.1) 09/10/22 01:38 APTT 28.9 Seconds (21.0-31.0) 09/10/22 01:38 Blood Type O Negative 09/10/22 07:39 Antibody Screen NEGATIVE 09/10/22 07:39 Electrocardiogram Date: 09/10/22 Findings: + NSR @ (71) and + NSST changes Echocardiogram Date: 08/29/21 EF: 55-60% Other Findings: + LVH (mild) Valvular Disease: + MR (mild)
[2022-09-10] MEDS ORDERED: ceFAZolin 2,000 MG/15 ML IV PUSH IV ONE (12:59)
[2022-09-10] MEDS ORDERED: ATROPINE SULFATE 0.1 MG/ML 10ML SYR IV PRN (13:23)
[2022-09-10] MEDS ORDERED: ONDANSETRON INJ 2 MG/ML 2 ML VIAL IV PRN (13:23)
[2022-09-10] MEDS ORDERED: HYDROmorphone INJ 1 MG/ML SYRINGE IV PRN (13:23)
[2022-09-10] MEDS ORDERED: ePHEDrine sulfate 50 MG/ML AMP ONE (14:42)
[2022-09-10] MEDS ORDERED: PHENYLEPHRINE HCL 10 MG/ML VIAL ONE (14:42)
[2022-09-10] MEDS ORDERED: ONDANSETRON INJ 2 MG/ML 2 ML VIAL ONE (14:43)
[2022-09-10] MEDS ORDERED: ROCURONIUM BROMIDE 10 MG/ML 5 ML VIAL IV ONE (14:43)
[2022-09-10] MEDS ORDERED: DEXAMETHASONE SOD INJ 4 MG/ML VIAL ONE (14:43)
[2022-09-10] MEDS ORDERED: NEOSTIGMINE METHYLSULFATE 1 MG/ML 10ML VIAL ONE (14:43)
[2022-09-10] MEDS ORDERED: GLYCOPYRROLATE 0.2 MG/ML VIAL ONE (14:43)
--- NOTE | 2022-09-10 15:18 | Operative Report ---
Post Operative Report Pre & Post Diagnosis Operation Date: 09/10/22 09:40 Pre-Op Diagnosis: Closed subcapital fracture of the right hip Post-Op Diagnosis: Closed subcapital fracture of the right hip I identified the patient and participated in the time-out.: Yes Procedure Operation Date: 09/10/22 09:40 Actual Procedures p Right Percutaneous Reduction Internal Fixation Hip Cannulated Screw - Waqas Dueñas MD Surgeon Waqas Dueñas MD Exploitation Analyst Ce BUNN Estimated Blood Loss 5 Findings Consistent with Post-Op Diagnosis Specimens na Anesthesia Type General Disposition Accompanied Patient To Recovery: Yes Description of Procedure PREOPERATIVE DIAGNOSIS: Right valgus impacted femoral neck fracture. POSTOPERATIVE DIAGNOSIS: Right valgus impacted femoral neck fracture. OPERATION PERFORMED: Right hip valgus impacted femoral neck fracture, closed reduction and percutaneous pinning. SURGEON: Waqas Dueñas MD TOXICS PROGRAM OFFICER: Brown Encinas DO ESTIMATED BLOOD LOSS: 5 mL INTRAVENOUS FLUIDS: See anesthesia note SPECIMENS: None. COMPLICATIONS: None. IMPLANTS: Three Synthes 7.3 mm cannulated screws. INDICATIONS: Pt is a 62yo male with history of TBI, seizure disorder, cerebellar ataxia who presented to the hospital following mechanical ground level fall resulting in right subcapital hip fracture. Orthopedic services were consulted as a result of the fracture. He explains he was ambulating in his bedroom and is unsure if he got tangled in a blanket. He states he fell onto the right shoulder and hip. He states he has severe pain in the right hip. He denies any othis injuries. He denies hitting his head. He is on plavix and aspirin hx of CVA. The patient is an After reviewing the risks and benefits of surgery, he elected to proceed. All questions were answered, informed consent was signed. OPERATIVE FINDINGS: The fracture was found to be stable under fluoroscopic evaluation. It was stabilized with an inverted triangle of 3 Synthes cannulated screws. DESCRIPTION OF OPERATION: The patient was identified in the preoperative holding area whise surgical site was marked. He was brought back to the main operating room whise he was rolled on to his hospital bed in the lateral position and a spinal anesthetic was placed. He was carefully moved on the operating room table. A perineal post was placed and all bony prominences were padded. The nonoperative leg was flexed, abducted to allow for fluoroscopic visualization. Fluoroscopy was then brought in. Gentle traction was placed on the leg and the foot was internally rotated. Under fluoroscopic views, we confi rmed that thise has been no displacement of the fracture compared with his admission x-rays. The fracture was valgus impacted with no displacement in the anterior, posterior plane on the lateral view. The surgical site was then prepped and draped in the usual sterile fashion. Prior to incision, a multidisciplinary timeout was called. All in the room were in agreement. We began by marking out the neck shaft angle by overlying a K-wire in the skin. A 3 cm long incision was then made over the lateral aspect of the femur in line with this marking. We dissected down to subcutaneous tissues to the level of fascia. A K-wire was then inserted through the fascia directly down on to the bone and was optimized in the center-center position on the AP fluoroscopic view. We optimized the angle of approach for this first screw and then drilled it up into the subchondral bone of the femoral head using multiple AP and lateral fluoroscopic images. Once this wire was in place, the anterior s uperior K-wire and the posterior superior K-wire were placed using similar technique. We then obtained our measurements. The inferior screw was placed first followed by the posterior superior screw and then the anterior superior screw. We had a good bite on our 3 superior screws using a short threaded 7.3 mm cannulated screws. The K-wires were then removed. Final fluoroscopic images were obtained confirming that thise was no hardware entering the joint on multiple fluoroscopic images every 10 degrees from the AP to the lateral view. The wound was then irrigated out with copious amounts of normal saline. The wound was closed with 2-0 monocryl. Nylon sututes were used for the skin. Sterile dressing was applied. The patient was carefully moved on to the hospital table. His sedation was lifted and he was transferred to the recovery room in stable condition. POSTOPERATIVE COURSE: The patient will be readmitted to the internal medicine service. He can weightbearing as tolerated with a walker and assistance. He is high risk for falls. He will be on DVT prophylaxis per the internal medicine service. I attest to the content of the Intraoperative Record and any orders documented therein. Any exceptions are noted below.
--- NOTE | 2022-09-10 15:18 | Post Operative Brief Note ---
Immediate Post Op Note v1 Date of Surgery September 10, 2022 Pre & Post Diagnosis Operation Date: 09/10/22 09:40 Pre-Op Diagnosis: Closed subcapital fracture of the right hip Post-Op Diagnosis: Closed subcapital fracture of the right hip I identified the patient and participated in the time-out.: Yes Procedure Operation Date: 09/10/22 09:40 Actual Procedures p Right Percuataneous Reduction Internal Fixation Hip Cannulated Screw - Waqas Dueñas MD Surgeon Waqas Dueñas MD Factory Manager Ce DO Estimated Blood Loss 5 Findings Consistent with Post-Op Diagnosis Anesthesia Type General Complications NA Disposition Accompanied Patient To Recovery: Yes
--- NOTE | 2022-09-10 15:44 | Fluoroscopy Report ---
FL hip RT 2-3V HISTORY: 62 years-old Male RT CANNULATED SCREWS subacute fracture of the right proximal femur COMPARISON: Radiographs of same day at 2:43 AM TECHNIQUE: 2 spot fluoroscopic images of the right hip were obtained utilizing 105.2 seconds fluorosc opy time FINDINGS: Status post placement of 3 intact cannulated screws fixating the acute right femoral neck fracture. T here is improved alignment status post fixation. No dislocation or unexpected opaque foreign body IMPRESSION: Fluoroscopic assistance as above. ACT 112: Negative or not required by law. The above report was generated using voice recognition software. It may contain grammatical, syntax o r spelling errors. Electronically signed by: Bryan Spencer M.D. 09/10/2022 3:43 PM
--- NOTE | 2022-09-10 16:47 | Anesthesiology Progress Note ---
Date of Service September 10, 2022 Anesthesia Post Procedure Vital Signs Vital Signs: Temp Pulse Pulse Pulse Resp BP BP 09/10/22 16:20 36.8 C 80 18 139/90 09/10/22 16:10 36.8 C 72 18 125/82 09/10/22 16:00 79 18 114/83 09/10/22 15:50 79 16 139/81 09/10/22 15:40 70 16 143/86 H 09/10/22 15:31 36.9 C 67 16 110/80 09/10/22 13:16 36.9 C 68 16 148/86 H 09/10/22 08:00 09/10/22 07:43 36.9 C 74 16 09/10/22 06:38 71 18 09/10/22 05:45 09/10/22 06:03 37.0 C 70 20 09/10/22 05:20 37.8 C H 86 16 131/90 09/10/22 04:52 67 16 09/10/22 03:54 68 16 09/10/22 03:46 67 16 BP Pulse Ox O2 Del Method O2 Flow Rate 09/10/22 16:20 93 Nasal Cannula 4 09/10/22 16:10 95 Nasal Cannula 4 09/10/22 16:00 89 L Oxymask 8 09/10/22 15:50 88 L Oxymask 15 09/10/22 15:40 89 L Oxymask 15 09/10/22 15:31 88 L Oxymask 15 09/10/22 13:16 93 Nasal Cannula 2 09/10/22 08:00 92 Room Air 09/10/22 07:43 126/76 90 Nasal Cannula 3 09/10/22 06:38 92 Nasal Cannula 3.0 09/10/22 05:45 Nasal Cannula 3 09/10/22 06:03 118/75 90 Nasal Cannula 3 09/10/22 05:20 91 Nasal Cannula 3 09/10/22 04:52 133/80 91 Nasal Cannula 3 09/10/22 03:54 120/77 92 Nasal Cannula 2 09/10/22 03:46 117/77 92 Room Air, Nasal Cannula 2 Pain Intensity Right Hip: Pain Intensity: 7 Transfer of Care Handoff Completed per policy Notes Mental Status: alert / awake / arousable and participated in evaluation Patient Amnestic to Procedure: Yes Nausea / Vomiting: adequately controlled Pain: adequately controlled Airway Patency, RR, SpO2: stable & adequate BP & HR: stable & adequate Hydration State: stable & adequate Anesthetic Complications: no major complications apparent and Pt Satisfied with anesthetic care
[2022-09-10] MEDS ORDERED: ACETAMINOPHEN 1,000 MG/100 ML VIAL IV PRN (17:30)
[2022-09-10] MEDS: DOCUSATE SODIUM/SENNA 50/8.6MG TAB PO SCH (21:49)
[2022-09-10] MEDS: ceFAZolin 2000MG 2,000 MG/15 ML SYR IV SCH (23:06)
[2022-09-11] MEDS: ceFAZolin 2000MG 2,000 MG/15 ML SYR IV SCH (06:27)
[2022-09-11 06:32] LABS: Basophils # (auto) 0.01 K/uL (0-0.2); Basophils % (auto) 0.1 %; Eosinophils # (auto) 0.01 K/uL (0-0.50); Eosinophils % (auto) 0.1 %; Hemoglobin 12.4 g/dl (14.0-18.0); Immature Granulocytes # (auto) 0.08 K/uL (0.00-0.02); Immature Granulocytes % (auto) 0.6 %; Lymphocytes # (auto) 0.65 K/uL (1.2-3.4); Mean Corpuscular Hemoglobin 30.2 pg (25.0-34.0); Mean Corpuscular Hgb Conc 34.4 g/dL (32.0-36.0); Mean Corpuscular Volume 87.6 fL (80.0-100.0); Mean Platelet Volume 11.4 fL (9.4-12.4); Monocytes % (auto) 4.6 %; Neutrophils # (auto) 11.57 K/uL (1.4-6.5); Neutrophils % (auto) 89.6 %; Platelet Count 180 K/uL (130-400); RDW Coefficient of Variation 12.7 % (11.5-14.5); RDW Standard Deviation 40.7 fL (36.4-46.3); Red Blood Count 4.11 M/uL (4.63-6.08); White Blood Count 12.92 K/ul (4.8-10.8)
[2022-09-11 07:00] LABS: Calcium 8.1 mg/dl (8.5-10.1); Creatinine Clr Calc Pharmacy 87.9 ml/min; Est GFR (African American) 92.4 ml/min; Est GFR (Non-African American) 79.7 ml/min; Potassium 3.9 mmol/L (3.5-5.1)
[2022-09-11] MEDS: METOPROLOL TARTRATE 50 MG TAB PO SCH ×2 (08:09→20:10)
[2022-09-11] MEDS: PANTOprazole 40 MG TAB PO SCH ×2 (08:09→20:10)
[2022-09-11] MEDS: ATORVASTATIN 40 MG TAB PO SCH (08:10)
[2022-09-11] MEDS: FOLIC ACID 1 MG TAB PO SCH (08:10)
[2022-09-11] MEDS: DOXAZosin MESYLATE TAB 2 MG TAB PO SCH (08:10)
[2022-09-11] MEDS: DULoxetine HCL 30 MG CAP PO SCH (08:10)
[2022-09-11] MEDS: levETIRAcetam 500 MG TAB PO SCH ×2 (08:10→20:10)
[2022-09-11] MEDS: amLODIPine BESYLATE 5 MG TAB PO SCH (08:10)
--- NOTE | 2022-09-11 08:55 | Orthopedic Progress Note ---
Date of Service September 11, 2022 Assessment & Plan (1) Aftercare: Plan Date of Surgery: 10 SEP 2022 Proc: Left hip closed reduction, perc screw fixation Subjective: Doing well, pain well controlled. Denies fever, chills, nausea or vomiting Examination: -Incisions healing appropriately -No erythema or drainage -Sensory and motor exam intact in Tibial, superficial and deep peroneal nerves. Plan -Physical therapy (for hip and shoulder) -Shoulder - sling for comfort -Hip - weightbearing status per PA note yesterday -Discharge per hospitalist planning Admission and Anticipated Discharge Date Admission Date: September 10, 2022 Results & Data ([facility]) Vital Signs (Past 12 Hours) Vital Signs Temp Pulse Resp BP Pulse Ox O2 Del Method O2 Flow Rate 09/11/22 07:43 37.0 C 78 16 129/80 94 Nasal Cannula 2 09/11/22 03:03 37.0 C 85 16 147/78 H 93 Nasal Cannula 3.0 09/10/22 23:09 36.8 C 74 16 123/64 92 Nasal Cannula 4.0 09/10/22 21:45 80 124/71
--- NOTE | 2022-09-11 12:20 | Hospitalist Progress Note ---
Date of Service September 11, 2022 Assessment & Plan (1) Closed fracture of right hip: Plan: 62yo male with history of TBI, seizure disorder, cerebellar ataxia who presented to the hospital following mechanical ground level fall resulting in right subcapital hip fracture. Right hip fracture -Following mechanical fall. Now status post right ORIF of hip scheduled for 9:[address] Waqas Dueñas. * Regular diet * Restart ASA and Plavix * Pain control with Morphine PRN, scheduled IV Tylenol 1000 mg every 8 hours * Bowel regimen * PT/OT eval * Appreciate Ortho recs regarding dispo, likely to SNF Hypertension -Blood pressure currently well controlled * Continue home amlodipine, metoprolol * Trend vitals Ataxic gait * Fall precautions * PT/OT evaluation Prior CVA * Home atorvastatin Seizure * Home p.o. Keppra 1500 mg twice daily Code: Full code Dispo: Med-Surg FEN/GI: N.p.o. DVT Prophylaxis: SCDs PT/OT: Yes Consults: Ortho (2) Hypertension: (3) Ataxic gait: (4) Seizure: (5) CVA (cerebral vascular accident): Admission and Anticipated Discharge Date Admission Date: September 10, 2022 Supervising Physician Co-Signing Physician Notes Resident Physician Supervision Note: I independently interviewed and examined the patient and verified the matias history and physical, reviewed labs and image studies and agree with resident findings and care plan. Subjective No acute events overnight. Patient tolerated the procedure well. This morning, he is in bed awake and alert. He reports some lingering postsurgical tenderness but denies chest pain shortness of breath, dizziness, headache, or numbness or tingling in his distal extremities. His right shoulder is in a sling. Review of Systems Review of Systems: All systems reviewed & are unremarkable except as noted in HPI & below Physical Exam Physical Exam: General: In mild to moderate distress HEENT: PERRLA. Normal conjunctiva, anicteric sclera. Oropharynx normal. Respiratory: Normal respiratory effort, CTA BL. Cardiovascular: RRR without murmurs, gallops, or rubs. No edema. GI: Soft abdomen with normal bowel sounds heard on auscultation. Nontender x4 quadrants MSK: Surgical site at right hip clean, dry, and intact. Right shoulder in a sling. Neuro: Alert and oriented x3. Results & Data Results & Data ([facility]) Vital Signs (Past 12 Hours) Vital Signs Temp Pulse Resp BP Pulse Ox O2 Del Method O2 Flow Rate 09/11/22 11:31 94 Room Air 09/11/22 11:12 36.9 C 77 16 126/66 90 Room Air 09/11/22 07:55 Nasal Cannula 2 09/11/22 07:43 37.0 C 78 16 129/80 94 Nasal Cannula 2 09/11/22 03:03 37.0 C 85 16 147/78 H 93 Nasal Cannula 3.0 Resident Activity Tracking Resident Involvement: Resident Care Provided Care Provided: Adult Hospital Medicine
[2022-09-11] MEDS: oxyCODONE HCL IR 5 MG TAB (IMMEDIATE RELEASE) PO PRN (13:03)
[2022-09-11] MEDS: CLOPIDOGREL BISULFATE 75 MG TAB PO SCH (13:43)
[2022-09-11] MEDS: ASPIRIN 81 MG ECTAB PO SCH (13:43)
[2022-09-11] MEDS: DOCUSATE SODIUM/SENNA 50/8.6MG TAB PO SCH (20:10)
[2022-09-12] MEDS: oxyCODONE HCL IR 5 MG TAB (IMMEDIATE RELEASE) PO PRN ×3 (01:09→16:25)
[2022-09-12] MEDS: ATORVASTATIN 40 MG TAB PO SCH (07:57)
[2022-09-12] MEDS: amLODIPine BESYLATE 5 MG TAB PO SCH (07:57)
[2022-09-12] MEDS: DOXAZosin MESYLATE TAB 2 MG TAB PO SCH (07:57)
[2022-09-12] MEDS: FOLIC ACID 1 MG TAB PO SCH (07:57)
[2022-09-12] MEDS: METOPROLOL TARTRATE 50 MG TAB PO SCH ×2 (07:57→20:59)
[2022-09-12] MEDS: PANTOprazole 40 MG TAB PO SCH ×2 (07:58→21:00)
[2022-09-12] MEDS: CLOPIDOGREL BISULFATE 75 MG TAB PO SCH (07:58)
[2022-09-12] MEDS: levETIRAcetam 500 MG TAB PO SCH ×2 (07:58→21:00)
[2022-09-12] MEDS: ASPIRIN 81 MG ECTAB PO SCH (07:58)
[2022-09-12] MEDS: DULoxetine HCL 30 MG CAP PO SCH (07:58)
--- NOTE | 2022-09-12 09:24 | Hospitalist Progress Note ---
Date of Service September 12, 2022 Assessment & Plan (1) Closed fracture of right hip: Plan: 62yo male with history of TBI, seizure disorder, cerebellar ataxia who presented to the hospital following mechanical ground level fall resulting in right subcapital hip fracture. Right hip fracture -Following mechanical fall. Now status post right ORIF of right hip -PT recs: Discharge to home, with family support when medically cleared. Critical access hospital recommended home-based physical therapy evaluation, to ascertain safety within home environment. * Regular diet * Restarted ASA and Plavix * Pain control with Morphine PRN, IV Tylenol 1000 mg every 8 hours as needed * Bowel regimen * PT/OT eval Right humerus fracture -conservative management per ortho. -continue pain control. Hypertension -Blood pressure currently well controlled * Continue home amlodipine, metoprolol * Trend vitals Ataxic gait -Ambulating well with walker, per PT. * Fall precautions * Continue PT/OT evaluation. Prior CVA * Home atorvastatin Seizure * Home p.o. Keppra 1500 mg twice daily Code: Full code Dispo: Med-Surg FEN/GI: N.p.o. DVT Prophylaxis: SCDs PT/OT: Yes Consults: Ortho (2) Hypertension: (3) Ataxic gait: (4) Seizure: (5) CVA (cerebral vascular accident): Admission and Anticipated Discharge Date Admission Date: September 10, 2022 Supervising Physician Co-Signing Physician Notes Resident Physician Supervision Note: I independently interviewed and examined the patient and verified the matias history and physical, reviewed labs and image studies and agree with resident findings and care plan. Subjective No acute events overnight. Patient is seated up at bedside on arrival. He reports significant improvement in his right hip pain. He still reports some lingering sciatic knee pain, though it is also improved. Tolerated breakfast well. Physical therapy, who is also in the room, notes that patient just completed 2 long labs around the unit without difficulty. He denies shoulder pain. Review of Systems Review of Systems: All systems reviewed & are unremarkable except as noted in HPI & below Physical Exam Physical Exam: General: Well-appearing, alert, interactive, and in no acute distress. HEENT: Normocephalic, atraumatic. EOM intact. Good conjugate gaze. Nares patent. Moist mucosal membranes. Neck: Supple. No lymphadenopathy. Normal ROM. CV: Regular rate and rhythm. Normal S1 and S2. No murmurs gallops or rubs. Respiratory: Normal respiratory effort. Lungs clear to auscultation bilaterally. No crackles, rhonchi, or wheezes. Abdomen: Soft, nondistended abdomen. No bruits heard on auscultation. No tenderness to deep palpation. No guarding or rebound. Extremities: Patient supporting seated body weight with right arm, shoulder, without difficulty. Capillary refill <2 sec. 2+ dp equal bilaterally. No pedal edema. Neuro: Alert and oriented x3. Skin: Clean, dry, and intact. No rashes, bruises, or erythema. Results & Data Results & Data ([facility]) Vital Signs (Past 12 Hours) Vital Signs Temp Pulse Resp BP BP Pulse Ox O2 Del Method 09/12/22 07:04 36.9 C 65 16 112/70 92 Room Air 09/11/22 22:28 37.0 C 69 16 154/85 H 93 Room Air Resident Activity Tracking Resident Involvement: Resident Care Provided Care Provided: Adult Hospital Medicine
[2022-09-12 11:04] LABS: Basophils # (auto) 0.06 K/uL (0-0.2); Basophils % (auto) 0.5 %; Eosinophils # (auto) 0.79 K/uL (0-0.50); Eosinophils % (auto) 5.9 %; Hematocrit (blood only) 36.5 % (40.1-51.0); Hemoglobin 12.3 g/dl (14.0-18.0); Immature Granulocytes # (auto) 0.07 K/uL (0.00-0.02); Immature Granulocytes % (auto) 0.5 %; Lymphocytes # (auto) 2.73 K/uL (1.2-3.4); Lymphocytes % (auto) 20.5 %; Mean Corpuscular Hemoglobin 30.2 pg (25.0-34.0); Mean Corpuscular Hgb Conc 33.7 g/dL (32.0-36.0); Mean Corpuscular Volume 89.7 fL (80.0-100.0); Mean Platelet Volume 10.8 fL (9.4-12.4); Monocytes # (auto) 1.01 K/uL (0.24-0.82); Monocytes % (auto) 7.6 %; Neutrophils # (auto) 8.63 K/uL (1.4-6.5); Platelet Count 178 K/uL (130-400); Red Blood Count 4.07 M/uL (4.63-6.08); White Blood Count 13.29 K/ul (4.8-10.8)
[2022-09-12] MEDS: DOCUSATE SODIUM/SENNA 50/8.6MG TAB PO SCH (20:59)
[2022-09-13] MEDS: oxyCODONE HCL IR 5 MG TAB (IMMEDIATE RELEASE) PO PRN (02:54)
[2022-09-13 06:40] LABS: Basophils # (auto) 0.08 K/uL (0-0.2); Basophils % (auto) 0.7 %; Eosinophils # (auto) 0.75 K/uL (0-0.50); Eosinophils % (auto) 6.9 %; Hematocrit (blood only) 34.3 % (40.1-51.0); Hemoglobin 11.9 g/dl (14.0-18.0); Immature Granulocytes # (auto) 0.06 K/uL (0.00-0.02); Immature Granulocytes % (auto) 0.6 %; Lymphocytes # (auto) 2.24 K/uL (1.2-3.4); Lymphocytes % (auto) 20.7 %; Mean Corpuscular Hemoglobin 30.4 pg (25.0-34.0); Mean Corpuscular Hgb Conc 34.7 g/dL (32.0-36.0); Mean Corpuscular Volume 87.5 fL (80.0-100.0); Monocytes # (auto) 0.84 K/uL (0.24-0.82); Monocytes % (auto) 7.8 %; Neutrophils # (auto) 6.83 K/uL (1.4-6.5); Neutrophils % (auto) 63.3 %; Platelet Count 177 K/uL (130-400); RDW Standard Deviation 41.5 fL (36.4-46.3); Red Blood Count 3.92 M/uL (4.63-6.08)
[2022-09-13 07:10] LABS: BUN Creatinine Ratio 10.2 (10-20); Calcium 8.1 mg/dl (8.5-10.1); Creatinine Clr Calc Pharmacy 89.7 ml/min; Est GFR (African American) 94.7 ml/min; Est GFR (Non-African American) 81.7 ml/min; Potassium 3.5 mmol/L (3.5-5.1)
[2022-09-13] MEDS ORDERED: POTASSIUM CHLORIDE CRTAB 20 MEQ TABCR PO STA (08:41)
[2022-09-13] MEDS: ATORVASTATIN 40 MG TAB PO SCH (09:33)
[2022-09-13] MEDS: amLODIPine BESYLATE 5 MG TAB PO SCH (09:33)
[2022-09-13] MEDS: METOPROLOL TARTRATE 50 MG TAB PO SCH (09:33)
[2022-09-13] MEDS: PANTOprazole 40 MG TAB PO SCH (09:33)
[2022-09-13] MEDS: DOXAZosin MESYLATE TAB 2 MG TAB PO SCH (09:34)
[2022-09-13] MEDS: levETIRAcetam 500 MG TAB PO SCH (09:34)
[2022-09-13] MEDS: DULoxetine HCL 30 MG CAP PO SCH (09:34)
[2022-09-13] MEDS: CLOPIDOGREL BISULFATE 75 MG TAB PO SCH (09:34)
[2022-09-13] MEDS: FOLIC ACID 1 MG TAB PO SCH (09:34)
[2022-09-13] MEDS: ASPIRIN 81 MG ECTAB PO SCH (09:34)
--- NOTE | 2022-09-13 09:50 | Orthopedic Progress Note ---
Date of Service September 13, 2022 Assessment & Plan (1) Closed fracture of right hip: Plan: Plan is to D/C home today after discussion w/ Medicine service DVT Prophy with ASA and Plavix Pain control w/ PO meds Ice 4x/day for 15-20 mins Sling for Rt arm comfort WBAT with walker assistance Keep dressing in place Follow up at [facility] with Maren Gonzalez PA-C. Contact clinic at for appointment time and date. (2) Shoulder pain: Admission and Anticipated Discharge Date Admission Date: September 10, 2022 Subjective This 62 yo M is see after screw fixation for a Right femoral neck fracture and right shoulder greater tuberosity fracture. He states that he is doing well and ready to go home. Pain is well controlled with PO meds. He is on Plavix and ASA for DVT prophy. Did well with PT/OT this AM. Patient denies CP, SOB, nausea, vomiting, fever, chills, sweats or N/T in right leg or Right shoulder. Review of Systems Review of Systems: All systems reviewed & are unremarkable except as noted in Subjective Physical Exam Physical Exam: Right LE: Dressing changed to sterile 2x2's and tegaderm on Right hip. Sutures intact. Able to perform SLRT, actively dorsi/plantar flex foot. Mild edema. No erythema or ecchymosis. Quad strength 3+/5. NV intact Right upper arm: mild tenderness to palpation over greater tuberosity fx site. Mild edema. No skin breakdown. FROM of shoulder, elbow and wrist. NV intact. Results & Data ([facility]) Vital Signs (Past 12 Hours) Vital Signs Temp Pulse Resp BP Pulse Ox O2 Del Method 09/13/22 07:20 36.9 C 74 16 131/86 94 Room Air 09/12/22 22:33 36.9 C 76 18 122/80 92 Room Air Diagnostic Findings Laboratory Results WBC 10.80 K/ul (4.8-10.8) 09/13/22 05:53 RBC 3.92 M/uL (4.63-6.08) L 09/13/22 05:53 Hgb 11.9 g/dl (14.0-18.0) L 09/13/22 05:53 Hct 34.3 % (40.1-51.0) L 09/13/22 05:53 MCV 87.5 fL (80.0-100.0) 09/13/22 05:53 MCH 30.4 pg (25.0-34.0) 09/13/22 05:53 MCHC 34.7 g/dL (32.0-36.0) 09/13/22 05:53 RDW Std Deviation 41.5 fL (36.4-46.3) 09/13/22 05:53 RDW Coeff of Odin 13.0 % (11.5-14.5) 09/13/22 05:53 Plt Count 177 K/uL (130-400) 09/13/22 05:53 MPV 11.0 fL (9.4-12.4) 09/13/22 05:53 Immature Gran % (Auto) 0.6 % 09/13/22 05:53 Neut % (Auto) 63.3 % 09/13/22 05:53 Lymph % (Auto) 20.7 % 09/13/22 05:53 Irwin % (Auto) 7.8 % 09/13/22 05:53 Eos % (Auto) 6.9 % 09/13/22 05:53 Baso % (Auto) 0.7 % 09/13/22 05:53 Neut # (Auto) 6.83 K/uL (1.4-6.5) H 09/13/22 05:53 Lymph # (Auto) 2.24 K/uL (1.2-3.4) 09/13/22 05:53 Irwin # (Auto) 0.84 K/uL (0.24-0.82) H 09/13/22 05:53 Eos # (Auto) 0.75 K/uL (0-0.50) H 09/13/22 05:53 Baso # (Auto) 0.08 K/uL (0-0.2) 09/13/22 05:53 Immature Gran # (Auto) 0.06 K/uL (0.00-0.02) H 09/13/22 05:53 PT 10.8 Seconds (9.0-12.0) 09/10/22 01:38 INR 1.0 (0.9-1.1) 09/10/22 01:38 APTT 28.9 Seconds (21.0-31.0) 09/10/22 01:38 PTT Ratio 1.1 09/10/22 01:38 Sodium 133 mmol/L (136-145) L 09/13/22 05:53 Potassium 3.5 mmol/L (3.5-5.1) 09/13/22 05:53 Chloride 97 mmol/L (98-107) L 09/13/22 05:53 Carbon Dioxide 29 mmol/L (21-32) 09/13/22 05:53 Anion Gap 7 (3-11) 09/13/22 05:53 BUN 10 mg/dl (6-23) 09/13/22 05:53 Creatinine 0.98 mg/dl (0.6-1.4) 09/13/22 05:53 Est Cr Clr Drug Dosing 89.7 ml/min 09/13/22 05:53 Est GFR ( Amer) 94.7 ml/min 09/13/22 05:53 Est GFR (Non-Af Amer) 81.7 ml/min 09/13/22 05:53 BUN/Creatinine Ratio 10.2 (10-20) 09/13/22 05:53 Glucose 98 mg/dl (70-99(Fasting)) 09/13/22 05:53 Calcium 8.1 mg/dl (8.5-10.1) L 09/13/22 05:53 Phosphorus 2.5 mg/dl (2.5-4.9) 09/10/22 01:38 Magnesium 1.9 mg/dl (1.7-2.4) 09/10/22 01:38 Total Bilirubin 0.4 mg/dl (0.2-1.0) 09/10/22 01:38 AST 20 U/L (13-39) 09/10/22 01:38 ALT 11 U/L (7-52) 09/10/22 01:38 Alkaline Phosphatase 65 U/L (34-104) 09/10/22 01:38 Total Protein 6.8 gm/dl (6.0-8.3) 09/10/22 01:38 Albumin 3.8 gm/dl (3.4-5.0) 09/10/22 01:38 Globulin 3.0 gm/dl (2.5-4.0) 09/10/22 01:38 Albumin/Globulin Ratio 1.3 (0.9-2) 09/10/22 01:38 25-OH Vitamin D Total 31.5 ng/ml (30-100) 09/11/22 05:54 Ethyl Alcohol mg/dL < 10.0 mg/dl (<10.0) 09/10/22 07:39 SARS-CoV-2, RNA, NAAT NEGATIVE (NEGATIVE) 09/10/22 03:54 Blood Type O Negative 09/10/22 07:39 Antibody Screen NEGATIVE 09/10/22 07:39 Impressions Chest X-Ray 09/10/22 00:00 SINGLE VIEW CHEST CLINICAL HISTORY: Preoperative examination. Hip fracture. FINDINGS: An AP, portable, supine chest radiograph is compared to study dated 05/01/2020. The cardiomediastinal silhouette is top normal for projection limiting atherosclerotic calcification of the thoracic aorta. There is prominence of the pulmonary vasculature. Atelectasis is noted at both lung bases. The lungs and pleural spaces are otherwise clear. No pneumothorax is seen. The skeletal structures are osteopenic. There are healed bilateral rib fractures. IMPRESSION: 1. Apparent prominence of the pulmonary vasculature may be related to supine positioning. Correlate clinically for evidence of fluid overload/congestive change. 2. No airspace consolidation or large pleural effusion is identified. ACT 112: Negative or not required by law. Electronically signed by: Howie Cole M.D. 09/10/2022 10:06 AM Hip/Pelvis X-Ray 09/10/22 00:00 XR hip RT 2V w pelvis, XR hip RT 1V CLINICAL HISTORY: FALL, EVAL FOR HIP FX TECHNIQUE: 2 views of the right hip and single frontal view of the pelvis were obtained. At 0240 hours. A single cross table view of the right hip was performed at 0855 hours. Comparison: None available at the time of this dictation. FINDINGS: 0240 hours: There is an impacted fracture of the femoral neck, likely subcapital, which appears to be mildly comminuted. Joint spaces are well-preserved. Soft tissue swelling is seen. 0855 hours: Highly limited visualization of the femoral neck with essentially unchanged appearance. IMPRESSION: Right femoral neck fracture with associated soft tissue swelling. ACT 112: Negative or not required by law. Electronically signed by: James Feliz M.D. 09/10/2022 9:21 AM Shoulder X-Ray 09/10/22 00:00 RIGHT SHOULDER 3 VIEWS CLINICAL HISTORY: Fall with right shoulder injury. FINDINGS: 3 views of the right shoulder are obtained. No prior studies are available for comparison at the time of dictation. The skeletal structures appear osteopenic. There is a mildly displaced fracture through the greater tuberosity of the humeral head. No additional fractures seen. There is no dislocation. Mild arthritic change is present at the glenohumeral and acromioclavicular joints. Mild overlying soft tissue edema is noted. There are chronic/healed right-sided rib fractures. The right lung parenchyma appears clear noting basilar atelectasis. IMPRESSION: Right humeral head fracture as above. Electronically signed by: Howie Cole M.D. 09/10/2022 11:04 AM Hip X-Ray 09/10/22 07:31 XR hip RT 2V w pelvis, XR hip RT 1V CLINICAL HISTORY: FALL, EVAL FOR HIP FX TECHNIQUE: 2 views of the right hip and single frontal view of the pelvis were obtained. At 0240 hours. A single cross table view of the right hip was performed at 0855 hours. Comparison: None available at the time of this dictation. FINDINGS: 0240 hours: There is an impacted fracture of the femoral neck, likely subcapital, which appears to be mildly comminuted. Joint spaces are well-preserved. Soft tissue swelling is seen. 0855 hours: Highly limited visualization of the femoral neck with essentially unchanged appearance.
--- NOTE | 2022-09-13 14:21 | Discharge Summary ---
Date of Service September 13, 2022 Admission HPI Per Admitting Provider Sudarshan Rodríguez is a 62you male with history of prior TBI, Seizure disorder and cerebellar ataxia, unsteady gait at baseline presenting after ground level fall this evening. Patient was walking in his home from the living room to the bedroom and possibly became entangled in a blanket causing him to fall. He denies head trauma or LOC but does not fully recollect the events. He has pain in his right shoulder and right hip. Otherwise denies fever, chills, cough, SOB, abdominal pain, nausea, vomiting, diarrhea or constipation. No additional complaints at this time. Patient with history of EtOH abuse and prior withdrawals. He no longer drinks regularly. Occasionally has a NA beer. He had three beers tonight which he thought were NA, but his states that they were actually 8% alcohol beers. Principal Diagnosis Right hip fracture Discharge Exam General: Well-appearing, alert, interactive, and in no acute distress. HEENT: Normocephalic, atraumatic. EOM intact. Good conjugate gaze. Nares patent. Moist mucosal membranes. Neck: Supple. No lymphadenopathy. Normal ROM. CV: Regular rate and rhythm. Normal S1 and S2. No murmurs gallops or rubs. Respiratory: Normal respiratory effort. Lungs clear to auscultation bilaterally. No crackles, rhonchi, or wheezes. Abdomen: Soft, nondistended abdomen. No bruits heard on auscultation. No tenderness to deep palpation. No guarding or rebound. Extremities: Patient supporting seated body weight with right arm, shoulder, without difficulty. Capillary refill <2 sec. 2+ dp equal bilaterally. No pedal edema. Neuro: Alert and oriented x3. Skin: Clean, dry, and intact. No rashes, bruises, or erythema. Discharge Data Allergies Allergy/AdvReac Type Severity Reaction Status Date / Time No Known Allergies Allergy Verified 06/18/22 14:07 Consultations 09/10/22 04:02 ED Decision to Admit Stat 09/10/22 05:43 Consult Orthopedic Surgery Routine Procedures Performed Operation Date: 09/10/22 09:40 Actual Procedures p Right Open Reduction Internal Fixation Hip Cannulated Screw - Waqas Dueñas MD Ordered Studies 09/10/22 FL hip RT 2-3V Routine Hospital Course (1) Closed fracture of right hip: 62yo male with history of TBI, seizure disorder, cerebellar ataxia who presented to the hospital following mechanical ground level fall resulting in right subcapital hip fracture. Right hip fracture -Following mechanical fall -Patient evaluated by orthopedic surgery: Now s/p right ORIF of hip scheduled for 9:[address] Waqas Dueñas. -Patient tolerated PT/OT while at the hospital: Recommended discharge to acute rehab. However, patient opted for home health PT, which case management successfully coordinated. * Restarted ASA and Plavix * Received Morphine PRN, scheduled IV Tylenol 1000 mg every 8 hours for pain control. Sent home on p.o. oxycodone and tylenol * Zofran PRN for nausea Right humerus fracture -conservative management with sling and pain control Hypertension -Blood pressure currently well controlled * Continued home amlodipine, metoprolol Ataxic gait * Fall precautions * PT/OT evaluation - seee above Prior CVA * Home atorvastatin Seizure * Home p.o. Keppra 1500 mg twice daily (2) Hypertension: (3) Ataxic gait: (4) Seizure: (5) CVA (cerebral vascular accident): Total Time Total Time Spent Total Time Spent (In Minutes): See attending attestation Discharge Plan Discharge Items Patient Disposition: Home - Home Health Services Reason For Visit: RIGHT HIP FRACTURE Discharge Diagnosis: Right hip fracture Activity: Per Instructions section Non-emergency contact: Primary Care Provider and Specialist Call non-emergency contact if: you have any medication questions and your pain is not controlled Follow-up/Referrals: Marcelo Houston MD [Primary Care Provider] - 09/18/22 2:00 pm Maren Gonzalez PA [Physician Python Programmer] - 09/27/22 2:15 pm Diet: Regular Addtl Attending Provider Instructions: Weightbearing as tolerated on the right leg with walker Continue with regimen Plavix and Aspirin as previously taken Recommend home health/PT for optimal outcomes Right shoulder fracture, may use sling for comfort Daily Range of motion exercises avoid heavy lifting or pulling/pushing with the right upper extermity, may use walker Follow up with Maren Gonzalez PA-C at [facility]. Call office for appointment date and time Pending Studies at Discharge: No Stand-Alone Forms: Dayima, Smoking Cessation Medications and DC Order Prescriptions: New oxycodone 5 mg tablet 5 mg PO BID PRN (Reason: pain) Qty: 10 0RF Continued cholecalciferol (vitamin D3) 50 mcg (2,000 unit) capsule 50 mcg PO DAILY Qty: 30 5RF Label Comments: TAKES HS levetiracetam 500 mg tablet 1,500 mg PO Q12H Qty: 540 3RF doxazosin 2 mg tablet 2 mg PO DAILY Qty: 90 3RF metoprolol tartrate 50 mg tablet 50 mg PO Q12H Qty: 180 3RF atorvastatin 40 mg tablet 40 mg PO QAM Qty: 30 11RF folic acid 1 mg tablet 1 mg PO DAILY Qty: 90 3RF pantoprazole 40 mg tablet,delayed release (DR/EC) See Rx Instructions .ROUTE .COMPLEX Qty: 180 3RF Dose Instruction: TAKE ONE TABLET BY MOUTH TWICE DAILY Rx Instructions: TAKE ONE TABLET BY MOUTH TWICE DAILY duloxetine 30 mg capsule,delayed release(DR/EC) 30 mg PO DAILY Qty: 90 1RF amlodipine 10 mg tablet 10 mg PO DAILY Qty: 90 3RF clopidogrel 75 mg Tablet 75 mg PO QAM Qty: 20 0RF aspirin 81 mg Tablet,Delayed Release (Dr/Ec) 81 mg PO QAM Qty: 30 0RF Discharge Orders: Discharge Order (Routine); Ordered 09/13/22 Ordered By: Twila Miller Admission Data Admit Date/Time: 09/10/22 04:28 Attending Provider: Renetta Michaud Admit Provider: Eve Galvez Primary Care Provider: Marcelo Houston Other Providers: Eve Galvez ; Waqas Dueñas Other Interventions: Discharge Summary Assessment (RN) Last Done: 09/13/22 13:25 Supervising Physician Co-Signing Physician Notes Resident Physician Supervision Note: I independently interviewed and examined the patient and verified the matias history and physical, reviewed labs and image studies and agree with resident findings and care plan. Resident Activity Tracking Resident Involvement: Resident Care Provided Care Provided: Adult Hospital Medicine
== END 2022-09-13 14:13 | disposition home health service (06) ==
LOC: ED 03:36 → SUATTDRO 04:28 → 3E 04:28 → INTOOBSV 04:28 → 3E 05:20
DX: Z20.822 Contact with and (suspected) exposure to COVID-19; Y93.01 Activity, walking, marching and hiking; Z86.16 Personal history of COVID-19; Z86.73 Personal history of transient ischemic attack (TIA), and cerebral infarction without residual deficits; I10 Essential (primary) hypertension; G40.909 Epilepsy, unspecified, not intractable, without status epilepticus; W18.30XA Fall on same level, unspecified, initial encounter; M25.511 Pain in right shoulder; G11.9 Hereditary ataxia, unspecified; Z79.82 Long term (current) use of aspirin; Z79.899 Other long term (current) drug therapy; Z79.02 Long term (current) use of antithrombotics/antiplatelets; Y92.008 Other place in unspecified non-institutional (private) residence as the place of occurrence of the external cause; S72.011A Unspecified intracapsular fracture of right femur, initial encounter for closed fracture; F17.220 Nicotine dependence, chewing tobacco, uncomplicated; F10.11 Alcohol abuse, in remission

== ENCOUNTER 2023-06-01 16:06 | Inpatient (IN) ==
[2023-06-01 17:26] LABS: Basophils # (auto) 0.04 K/uL (0.00-0.20); Basophils % (auto) 0.2 %; Eosinophils # (auto) 0.05 K/uL (0.00-0.50); Eosinophils % (auto) 0.2 %; Hematocrit (blood only) 37.6 % (42.0-52.0); Hemoglobin 13.3 g/dl (14.0-18.0); Immature Granulocytes # (auto) 0.25 K/uL (0.01-0.20); Immature Granulocytes % (auto) 1.2 %; Lymphocytes # (auto) 1.24 K/uL (1.20-3.40); Lymphocytes % (auto) 5.8 %; Mean Corpuscular Hemoglobin 29.1 pg (25.0-34.0); Mean Corpuscular Hgb Conc 35.4 g/dL (32.0-36.0); Mean Corpuscular Volume 82.3 fL (80.0-100.0); Mean Platelet Volume 10.4 fL (9.4-12.4); Monocytes # (auto) 1.02 K/uL (0.11-0.59); Monocytes % (auto) 4.8 %; Neutrophils # (auto) 18.75 K/uL (1.40-6.50); Neutrophils % (auto) 87.8 %; Platelet Count 344 K/uL (130-400); RDW Coefficient of Variation 13.4 % (11.5-14.5); RDW Standard Deviation 39.8 fL (36.4-46.3); Red Blood Count 4.57 M/uL (4.70-6.10); White Blood Count 21.35 K/ul (4.8-10.8)
[2023-06-01 17:38] LABS: Influenza A virus by PCR Negative (Neg); Influenza B virus by PCR Negative (Neg); RSV by PCR Negative (Neg); SARS CoV2 RNA(COVID-19) Ceph NEGATIVE (Negative)
--- NOTE | 2023-06-01 17:38 | XRay Report ---
XR chest 1V not portable HISTORY: illness COMPARISON: Chest 09/10/2022. FINDINGS: No pneumothorax. No pleural effusions. Multiple old, healed bilateral rib fractures again n oted. Bibasilar linear densities are noted. These are nonspecific but favor subsegmental atelectasis or scarring given the low lung volumes. A pneumonia could also have a similar appearance. The upper l randall zones are clear. No evidence for pulmonary edema. The heart is normal in size. IMPRESSION: Bibasilar linear densities. These are nonspecific but favor subsegmental atelectasis or scarring give n the low lung volumes. A pneumonia could also have a similar appearance in the appropriate clinical setting. ACT 112: Negative or not required by law. Electronically signed by: Leonard Quiñones M.D. 06/01/2023 5:37 PM
[2023-06-01 17:39] LABS: Alanine Aminotransferase 48 U/L (7-52); Albumin Globulin Ratio 1.1 (0.9-2); Albumin Level 3.3 gm/dl (3.4-5.0); Alkaline Phosphatase 496 U/L (34-104); Anion Gap 12 (3-11); Aspartate Aminotransferase 84 U/L (13-39); Bilirubin,Total 8.4 mg/dl (0.2-1.0); Blood Urea Nitrogen 7 mg/dl (6-23); Calcium 8.4 mg/dl (8.6-10.3); Carbon Dioxide 27 mmol/L (21-32); Chloride 85 mmol/L (98-107); Est GFR (Non-African American) 91.4 ml/min; Globulin 3.1 gm/dl (2.5-4.0); Glucose 124 mg/dl (70-99(Fasting)); Lipase 27 U/L (11-82); Sodium 124 mmol/L (136-145); Total Protein 6.4 gm/dl (6.0-8.3)
--- NOTE | 2023-06-01 17:56 | Emergency Department Note ---
Impression & Plan Total bilirubin, elevated, Acute hyponatremia, Weakness, Abdominal pain with jaundice ED Provider Note Provider: Gold Olmos MD DATE OF SERVICE: 06/01/2023 CHIEF COMPLAINT: Abdominal pain, jaundice eyes HISTORY OF PRESENT ILLNESS: Patient is a 62-year-old gentleman history of TBI, seizures, cerebellar ataxia presenting here today reporting some mid abdominal pain that started just over a week ago. States he thought initially due to something getting stuck in his throat that seems to have cleared but has not been able to eat. Nausea at times. Tolerating secretions at this point. D enies nausea now. Some abdominal pain in the mid upper abdomen even at triage but none at the current time. Has been more unsteady according to and patient. was away and came back and found him to be more of a nature. No fevers reported. No actual falls but they had to catch him yesterday he almost fell. Denies any headaches. Has been having water and drinks nonalcoholic beers but denies any alcohol beers in years. Patient himself increasingly weak and not the best historian. states he is often like this. PAST MEDICAL HISTORY: As noted above MEDICATIONS: Reviewed home medications SOCIAL HISTORY: , prior history of alcohol abuse but sober now only drinks occasional nonalcoholic. PHYSICAL EXAM: GENERAL: alert and oriented in no acute distress on stretcher Head: normocephalic and atraumatic EYES: No injection, discharge however do note some icterus. NECK: Trachea midline. Supple. ENT: Mucous membranes pink and moist. LUNGS: Airway patent. No retractions or tachypnea HEART: Regular rate and rhythm. No chest wall tenderness ABDOMEN: Soft and non-tender, without guarding or rebound. No apparent masses SKIN: Acyanotic, warm, dry, without rashes EXTREMITIES: Without swelling, tenderness or deformity NEUROLOGICAL: No focal deficits. No aphasia. No facial droop or slurred speech. Normal strength and tone in the extremities. Sensation to gross touch normal. EK bpm sinus tachycardia without acute ST segment elevation. QTc 459. Some nonspecific lateral T wave flattening noted. CONTINUOUS CARDIAC MONITORING: was ordered and showed a heart rate of 90s-100s bpm in normal sinus rhythm to sinus tachycardia Patient's laboratory studies and imaging reviewed. Differential includes Infection, gastroenterology, dehydration, metabolic abno rmality, hypo/hyperglycemia, electrolyte disturbance, anemia, hypoxia, cardiac sources, intracerebral event, toxicologic, neurologic, as well as other pathologies. IMPRESSION/MEDICAL DECISION MAKING: Patient with some general weakness and unsteadiness. No significant focal deficit lower suspicion for CVA. No trauma reported. Some abdominal discomfort at times but denies any at this point. Some nausea at some point but not now. Decreased food intake but states has been having Pepsi and water. Nonalcoholic beers but denies recent alcohol use. Some jaundice appreciated. From triage blood work reviewed and evaluated in room B12. Negative COVID. Denies respiratory symptoms. Denies URI symptoms. Does not appear meningitic. No fevers related. Afebrile here. Blood work with new onset of severe hyponatremia of 124 likely explaining many of his symptoms and fatigue. Bilirubin also noted to be newly elevated 8.4 with mild alkaline phosphatase elevation 496. Negative COVID flu and RSV. Leukocytosis of 21 noted. Normal INR. Cultures lactate troponin ammonia level added on as well as hepatitis panel. We will complete a CT both of the head given his unsteadiness and histor y of head injury as well as more importantly of the abdomen pelvis to look for any possible obstructive pathology to explain the bilirubin elevation. Not significantly tender in the abdomen. Chest x-ray noted questioning atelectasis versus may have pneumonia in the lungs but no significant respiratory symptoms and low suspicion for pneumonia. CT head and abdomen pelvis without significant acute traumatic injuries noted by report; no report of intracranial bleeding. There is evidence of hepatic liver lesion but not correlating with his symptoms. Trace pleural effusions but cholelithiasis with mild gallbladder wall thickening noted. No evidence of bowel obstruction free air or acute diverticulitis. Ultrasound obtained here with a negative Zamora sign and no conclusive evidence of acute cholecystitis. Common bile duct dilated. Acute hepatitis panel pending. Negative alcohol level. Patient without significant abdominal pain on reassessment. Still not the best historian and some component of this may be related to the hyponatremia. Being cautious not to correct quickly thus being cautious with IV fluids. Discussed with the hospitalist further care here and work-up of his appears to be biliary pathology. Again I have empirically cover the patient with antibiotics with Zosyn given the leukocytosis mildly elevated procalcitonin and the elevated bilirubin. Repeat lactate is improving. Heart rate improving. Afebrile here. Doubt severe sepsis/septic shock. DIAGNOSIS: Elevated bilirubin, hyponatremia, fatigue/weakness jaundice with abdominal pain DISPOSITION: Hospitalist will evaluate Patient was agreeable with this plan. Past Med/Surg History Medical History Abnormal MRI of head Alcohol withdrawal hallucinosis Alcohol withdrawal seizure PT DENIES Arthritis COVID-19 03/01/22 CVA (cerebral vascular accident) Elevated liver enzymes Hx of gout Hx of intracranial hemorrhage MARCH 2020>DRUG INDUCED COMA AT [facility]. "HAD A FEEDING TUBE SHORT TERM". PT UNSURE OF DETAILS Hypertension Lyme disease Seizure MARCH 2020 (FELL AND HIT HEAD>DRUG INDUCED COMA/HOSPITALIZED AT [facility]) FOLLOWS WITH [facility] Syncope Surgical History H/O wrist surgery RT Hx of wisdom tooth extraction Family History Other No family history of adverse response to anesthesia No significant family history Denies family history of Prostate cancer Breast cancer Colorectal cancer Social History (Updated 04/08/23 @ 15:15 by Gabi Marinelli LPN) Smoking Status: Never smoker Tobacco Type: Smokeless Tobacco (Dip or Chew) Second Hand Exposure: No; Do You Dip or Chew Tobacco: Yes (1 can/day); Hx Alcohol Use: Yes Alcohol type: beer Hx Substance Use: No Preferred Language: Czech Communication Ability: Effective Electrical Assembler Required: No Beliefs That Will Affect Care: None marital status: Current Living Situation: Spouse and Family Feels Safe at Home: Yes Diet: regular caffeine: Yes Dental Care, Regularly: No Assistive Devices: Cane, Raised Toilet Seat and Walker Allergies Allergies Allergy/AdvReac Type Severity Reaction Status Date / Time No Known Allergies Allergy Verified 06/01/23 20:06 Home Meds Home Medications Medication Instructions Recorded Confirmed amlodipine 10 mg tablet 20 mg PO DAILY 06/01/23 06/01/23 pantoprazole 40 mg tablet,delayed 40 mg PO BID 06/01/23 06/01/23 release Previous Rx's Medication Instructions Recorded cholecalciferol (vitamin D3) 50 50 mcg PO DAILY #30 caps 07/20/20 mcg (2,000 unit) capsule aspirin 81 mg tablet,delayed 81 mg PO QAM #30 tabs 08/30/21 release levetiracetam 500 mg tablet 1,500 mg PO Q12H #540 tabs 05/31/22 doxazosin 2 mg tablet 2 mg PO DAILY #90 tabs 07/22/22 metoprolol tartrate 50 mg tablet 50 mg PO Q12H #180 tabs 07/22/22 folic acid 1 mg tablet 1 mg PO DAILY #90 tabs 07/26/22 atorvastatin 40 mg tablet 40 mg PO QAM #90 tabs 12/27/22 duloxetine 30 mg capsule,delayed 30 mg PO DAILY #90 caps 03/07/23 release Results & Data (ED) Vital Signs Vital Signs - 24 hr 06/01/23 16:19 06/01/23 19:13 06/01/23 20:00 Temperature 36.6 C Temperature Source Temporal Artery Scan Pulse Rate 111 H Pulse Rate [Apical] 105 H 96 H Respiratory Rate 20 18 16 Respiratory Effort / Characteristics Non-Labored Non-Labored Spontaneous Non-Labored Spontaneous Respiratory Depth Normal Normal Normal Respiratory Pattern Regular Blood Pressure 102/67 Blood Pressure [Left Arm] 136/88 130/84 Blood Pressure Mean 78 Blood Pressure Mean [Left Arm] 104 99 Pulse Oximetry 94 90 90 Oxygen Delivery Method Room Air Room Air Room Air Sepsis Recent Fever Within 48 Hours No Sepsis New/Unexplained Change in Mental Status No Sepsis Action Taken by Nursing No Action Required 06/01/23 20:30 06/01/23 21:00 06/01/23 22:00 Temperature Temperature Source Pulse Rate Pulse Rate [Apical] 93 H 99 H 92 H Respiratory Rate 16 17 16 Respiratory Effort / Characteristics Non-Labored Spontaneous Non-Labored Spontaneous Respiratory Depth Normal Normal Respiratory Pattern Regular Regular Blood Pressure Blood Pressure [Left Arm] 122/81 115/76 122/79 Blood Pressure Mean Blood Pressure Mean [Left Arm] 94 89 93 Pulse Oximetry 92 93 90 Oxygen Delivery Method Room Air Room Air Room Air Sepsis Recent Fever Within 48 Hours Sepsis New/Unexplained Change in Mental Status Sepsis Action Taken by Nursing 06/01/23 22:33 06/01/23 23:00 06/02/23 00:00 Temperature Temperature Source Pulse Rate Pulse Rate [Apical] 93 H 93 H 91 H Respiratory Rate 16 17 18 Respiratory Effort / Characteristics Non-Labored Spontaneous Respiratory Depth Normal Respiratory Pattern Regular Blood Pressure Blood Pressure [Left Arm] 124/83 128/91 128/76 Blood Pressure Mean Blood Pressure Mean [Left Arm] 96 103 93 Pulse Oximetry 91 91 90 Oxygen Delivery Method Room Air Room Air Room Air Sepsis Recent Fever Within 48 Hours Sepsis New/Unexplained Change in Mental Status Sepsis Action Taken by Nursing 06/01/23 19:50 06/02/23 00:10 Temperature Temperature Source Pulse Rate 94 H 90 Pulse Rate [Apical] Respiratory Rate Respiratory Effort / Characteristics Respiratory Depth Respiratory Pattern Blood Pressure Blood Pressure [Left Arm] Blood Pressure Mean Blood Pressure Mean [Left Arm] Pulse Oximetry Oxygen Delivery Method Sepsis Recent Fever Within 48 Hours Sepsis New/Unexplained Change in Mental Status Sepsis Action Taken by Nursing Laboratory Data 06/01/23 16:30 06/01/23 16:30 Lab Results 06/01/23 06/01/23 06/01/23 Range/Units 16:30 16:30 16:30 WBC 21.35 H (4.8-10.8) K/ul RBC 4.57 L (4.70-6.10) M/uL Hgb 13.3 L (14.0-18.0) g/dl Hct 37.6 L (42.0-52.0) % MCV 82.3 (80.0-100.0) fL MCH 29.1 (25.0-34.0) pg MCHC 35.4 (32.0-36.0) g/dL RDW Std Deviation 39.8 (36.4-46.3) fL RDW Coeff of Odin 13.4 (11.5-14.5) % Plt Count 344 (130-400) K/uL MPV 10.4 (9.4-12.4) fL Immature Gran % (Auto) 1.2 % Neut % (Auto) 87.8 % Lymph % (Auto) 5.8 % Bracken % (Auto) 4.8 % Eos % (Auto) 0.2 % Baso % (Auto) 0.2 % Neut # (Auto) 18.75 H (1.40-6.50) K/uL Lymph # (Auto) 1.24 (1.20-3.40) K/uL Bracken # (Auto) 1.02 H (0.11-0.59) K/uL Eos # (Auto) 0.05 (0.00-0.50) K/uL Baso # (Auto) 0.04 (0.00-0.20) K/uL Immature Gran # (Auto) 0.25 H (0.01-0.20) K/uL PT 11.9 (9.0-12.0) Seconds INR 1.1 (0.9-1.1) APTT 32.0 H (21.0-31.0) Seconds PTT Ratio 1.1 Sodium 124 L (136-145) mmol/L Potassium 3.0 L (3.5-5.1) mmol/L Chloride 85 L (98-107) mmol/L Carbon Dioxide 27 (21-32) mmol/L Anion Gap 12 H (3-11) BUN 7 (6-23) mg/dl Creatinine 0.88 (0.6-1.4) mg/dl Est Cr Clr Drug Dosing Not Reportable Est GFR ( Amer) 106.0 ml/min Est GFR (Non-Af Amer) 91.4 ml/min BUN/Creatinine Ratio 8.0 L (10-20) Glucose 124 H (70-99(Fasting)) mg/dl Osmolality (280-300) mOsm/kg Lactate (0.4-2.0) mmol/L Calcium 8.4 L (8.6-10.3) mg/dl Total Bilirubin 8.4 H (0.2-1.0) mg/dl AST 84 H (13-39) U/L ALT 48 (7-52) U/L Alkaline Phosphatase 496 H (34-104) U/L Ammonia (18-72) umol/L Troponin I High Sens (0-20) pg/ml Total Protein 6.4 (6.0-8.3) gm/dl Albumin 3.3 L (3.4-5.0) gm/dl Globulin 3.1 (2.5-4.0) gm/dl Albumin/Globulin Ratio 1.1 (0.9-2) Lipase 27 (11-82) U/L Procalcitonin (0-0.5) ng/ml TSH (0.300-4.500) uIu/ml Urine Color Urine Appearance (Clear) Urine pH (4.5-7.5) Ur Specific Overton (1.000-1.030) Urine Protein (Negative) Urine Glucose (UA) (Negative) Urine Ketones (Negative) Urine Blood (Negative) Urine Nitrite (Negative) Urine Bilirubin (Negative) Urine Urobilinogen (Negative) Ur Leukocyte Esterase (Negative) Urine WBC (Auto) (0-5) /hpf Urine RBC (Auto) (0-4) /hpf U Hyaline Cast (Auto) (0-5) /lpf U Epithel Cells (Auto) (0-5) /lpf Urine Bacteria (Auto) (Negative) Urine Osmolality (500-800) mOsm/kg Ethyl Alcohol mg/dL (<10.0) mg/dl SARS-CoV-2 (PCR) (Negative) Influenza Type A (PCR) (Neg) Influenza Type B (PCR) (Neg) RSV (RT-PCR) (Neg) 06/01/23 06/01/23 06/01/23 Range/Units 16:30 18:30 18:30 WBC (4.8-10.8) K/ul RBC (4.70-6.10) M/uL Hgb (14.0-18.0) g/dl Hct (42.0-52.0) % MCV (80.0-100.0) fL MCH (25.0-34.0) pg MCHC (32.0-36.0) g/dL RDW Std Deviation (36.4-46.3) fL RDW Coeff of Odin (11.5-14.5) % Plt Count (130-400) K/uL MPV (9.4-12.4) fL Immature Gran % (Auto) % Neut % (Auto) % Lymph % (Auto) % Bracken % (Auto) % Eos % (Auto) % Baso % (Auto) % Neut # (Auto) (1.40-6.50) K/uL Lymph # (Auto) (1.20-3.40) K/uL Bracken # (Auto) (0.11-0.59) K/uL Eos # (Auto) (0.00-0.50) K/uL Baso # (Auto) (0.00-0.20) K/uL Immature Gran # (Auto) (0.01-0.20) K/uL PT (9.0-12.0) Seconds INR (0.9-1.1) APTT (21.0-31.0) Seconds PTT Ratio Sodium (136-145) mmol/L Potassium (3.5-5.1) mmol/L Chloride (98-107) mmol/L Carbon Dioxide (21-32) mmol/L Anion Gap (3-11) BUN (6-23) mg/dl Creatinine (0.6-1.4) mg/dl Est Cr Clr Drug Dosing Est GFR ( Amer) ml/min Est GFR (Non-Af Amer) ml/min BUN/Creatinine Ratio (10-20) Glucose (70-99(Fasting)) mg/dl Osmolality 263 L (280-300) mOsm/kg Lactate (0.4-2.0) mmol/L Calcium (8.6-10.3) mg/dl Total Bilirubin (0.2-1.0) mg/dl AST (13-39) U/L ALT (7-52) U/L Alkaline Phosphatase (34-104) U/L Ammonia (18-72) umol/L Troponin I High Sens 14.9 (0-20) pg/ml Total Protein (6.0-8.3) gm/dl Albumin (3.4-5.0) gm/dl Globulin (2.5-4.0) gm/dl Albumin/Globulin Ratio (0.9-2) Lipase (11-82) U/L Procalcitonin (0-0.5) ng/ml TSH (0.300-4.500) uIu/ml Urine Color Urine Appearance (Clear) Urine pH (4.5-7.5) Ur Specific Overton (1.000-1.030) Urine Protein (Negative) Urine Glucose (UA) (Negative) Urine Ketones (Negative) Urine Blood (Negative) Urine Nitrite (Negative) Urine Bilirubin (Negative) Urine Urobilinogen (Negative) Ur Leukocyte Esterase (Negative) Urine WBC (Auto) (0-5) /hpf Urine RBC (Auto) (0-4) /hpf U Hyaline Cast (Auto) (0-5) /lpf U Epithel Cells (Auto) (0-5) /lpf Urine Bacteria (Auto) (Negative) Urine Osmolality (500-800) mOsm/kg Ethyl Alcohol mg/dL (<10.0) mg/dl SARS-CoV-2 (PCR) NEGATIVE (Negative) Influenza Type A (PCR) Negative (Neg) Influenza Type B (PCR) Negative (Neg) RSV (RT-PCR) Negative (Neg) 0906/01/23 06/01/23 Range/Units 18:30 18:30 18:30 WBC (4.8-10.8) K/ul RBC (4.70-6.10) M/uL Hgb (14.0-18.0) g/dl Hct (42.0-52.0) % MCV (80.0-100.0) fL MCH (25.0-34.0) pg MCHC (32.0-36.0) g/dL RDW Std Deviation (36.4-46.3) fL RDW Coeff of Odin (11.5-14.5) % Plt Count (130-400) K/uL MPV (9.4-12.4) fL Immature Gran % (Auto) % Neut % (Auto) % Lymph % (Auto) % Bracken % (Auto) % Eos % (Auto) % Baso % (Auto) % Neut # (Auto) (1.40-6.50) K/uL Lymph # (Auto) (1.20-3.40) K/uL Bracken # (Auto) (0.11-0.59) K/uL Eos # (Auto) (0.00-0.50) K/uL Baso # (Auto) (0.00-0.20) K/uL Immature Gran # (Auto) (0.01-0.20) K/uL PT (9.0-12.0) Seconds INR (0.9-1.1) APTT (21.0-31.0) Seconds PTT Ratio Sodium (136-145) mmol/L Potassium (3.5-5.1) mmol/L Chloride (98-107) mmol/L Carbon Dioxide (21-32) mmol/L Anion Gap (3-11) BUN (6-23) mg/dl Creatinine (0.6-1.4) mg/dl Est Cr Clr Drug Dosing Est GFR ( Amer) ml/min Est GFR (Non-Af Amer) ml/min BUN/Creatinine Ratio (10-20) Glucose (70-99(Fasting)) mg/dl Osmolality (280-300) mOsm/kg Lactate 3.1 H* (0.4-2.0) mmol/L Calcium (8.6-10.3) mg/dl Total Bilirubin (0.2-1.0) mg/dl AST (13-39) U/L ALT (7-52) U/L Alkaline Phosphatase (34-104) U/L Ammonia 29.0 (18-72) umol/L Troponin I High Sens (0-20) pg/ml Total Protein (6.0-8.3) gm/dl Albumin (3.4-5.0) gm/dl Globulin (2.5-4.0) gm/dl Albumin/Globulin Ratio (0.9-2) Lipase (11-82) U/L Procalcitonin (0-0.5) ng/ml TSH (0.300-4.500) uIu/ml Urine Color Urine Appearance (Clear) Urine pH (4.5-7.5) Ur Specific Overton (1.000-1.030) Urine Protein (Negative) Urine Glucose (UA) (Negative) Urine Ketones (Negative) Urine Blood (Negative) Urine Nitrite (Negative) Urine Bilirubin (Negative) Urine Urobilinogen (Negative) Ur Leukocyte Esterase (Negative) Urine WBC (Auto) (0-5) /hpf Urine RBC (Auto) (0-4) /hpf U Hyaline Cast (Auto) (0-5) /lpf U Epithel Cells (Auto) (0-5) /lpf Urine Bacteria (Auto) (Negative) Urine Osmolality (500-800) mOsm/kg Ethyl Alcohol mg/dL < 10.0 (<10.0) mg/dl SARS-CoV-2 (PCR) (Negative) Influenza Type A (PCR) (Neg) Influenza Type B (PCR) (Neg) RSV (RT-PCR) (Neg) 06/01/23 06/01/23 06/01/23 Range/Units 18:30 18:30 19:24 WBC (4.8-10.8) K/ul RBC (4.70-6.10) M/uL Hgb (14.0-18.0) g/dl Hct (42.0-52.0) % MCV (80.0-100.0) fL MCH (25.0-34.0) pg MCHC (32.0-36.0) g/dL RDW Std Deviation (36.4-46.3) fL RDW Coeff of Odin (11.5-14.5) % Plt Count (130-400) K/uL MPV (9.4-12.4) fL Immature Gran % (Auto) % Neut % (Auto) % Lymph % (Auto) % Bracken % (Auto) % Eos % (Auto) % Baso % (Auto) % Neut # (Auto) (1.40-6.50) K/uL Lymph # (Auto) (1.20-3.40) K/uL Bracken # (Auto) (0.11-0.59) K/uL Eos # (Auto) (0.00-0.50) K/uL Baso # (Auto) (0.00-0.20) K/uL Immature Gran # (Auto) (0.01-0.20) K/uL PT (9.0-12.0) Seconds INR (0.9-1.1) APTT (21.0-31.0) Seconds PTT Ratio Sodium (136-145) mmol/L Potassium (3.5-5.1) mmol/L Chloride (98-107) mmol/L Carbon Dioxide (21-32) mmol/L Anion Gap (3-11) BUN (6-23) mg/dl Creatinine (0.6-1.4) mg/dl Est Cr Clr Drug Dosing Est GFR ( Amer) ml/min Est GFR (Non-Af Amer) ml/min BUN/Creatinine Ratio (10-20) Glucose (70-99(Fasting)) mg/dl Osmolality (280-300) mOsm/kg Lactate (0.4-2.0) mmol/L Calcium (8.6-10.3) mg/dl Total Bilirubin (0.2-1.0) mg/dl AST (13-39) U/L ALT (7-52) U/L Alkaline Phosphatase (34-104) U/L Ammonia (18-72) umol/L Troponin I High Sens (0-20) pg/ml Total Protein (6.0-8.3) gm/dl Albumin (3.4-5.0) gm/dl Globulin (2.5-4.0) gm/dl Albumin/Globulin Ratio (0.9-2) Lipase (11-82) U/L Procalcitonin 0.87 H (0-0.5) ng/ml TSH 0.659 (0.300-4.500) uIu/ml Urine Color Dark Yellow Urine Appearance Clear (Clear) Urine pH 6.0 (4.5-7.5) Ur Specific Overton 1.010 (1.000-1.030) Urine Protein Negative (Negative) Urine Glucose (UA) Negative (Negative) Urine Ketones Negative (Negative) Urine Blood Negative (Negative) Urine Nitrite Positive A (Negative) Urine Bilirubin 2+ H (Negative) Urine Urobilinogen Positive H (Negative) Ur Leukocyte Esterase Negative (Negative) Urine WBC (Auto) 1-5 (0-5) /hpf Urine RBC (Auto) 0-4 (0-4) /hpf U Hyaline Cast (Auto) 0 (0-5) /lpf U Epithel Cells (Auto) 0-5 (0-5) /lpf Urine Bacteria (Auto) Negative (Negative) Urine Osmolality (500-800) mOsm/kg Ethyl Alcohol mg/dL (<10.0) mg/dl SARS-CoV-2 (PCR) (Negative) Influenza Type A (PCR) (Neg) Influenza Type B (PCR) (Neg) RSV (RT-PCR) (Neg) 06/01/23 06/01/23 Range/Units 19:24 20:26 WBC (4.8-10.8) K/ul RBC (4.70-6.10) M/uL Hgb (14.0-18.0) g/dl Hct (42.0-52.0) % MCV (80.0-100.0) fL MCH (25.0-34.0) pg MCHC (32.0-36.0) g/dL RDW Std Deviation (36.4-46.3) fL RDW Coeff of Odin (11.5-14.5) % Plt Count (130-400) K/uL MPV (9.4-12.4) fL Immature Gran % (Auto) % Neut % (Auto) % Lymph % (Auto) % Bracken % (Auto) % Eos % (Auto) % Baso % (Auto) % Neut # (Auto) (1.40-6.50) K/uL Lymph # (Auto) (1.20-3.40) K/uL Bracken # (Auto) (0.11-0.59) K/uL Eos # (Auto) (0.00-0.50) K/uL Baso # (Auto) (0.00-0.20) K/uL Immature Gran # (Auto) (0.01-0.20) K/uL PT (9.0-12.0) Seconds INR (0.9-1.1) APTT (21.0-31.0) Seconds PTT Ratio Sodium (136-145) mmol/L Potassium (3.5-5.1) mmol/L Chloride (98-107) mmol/L Carbon Dioxide (21-32) mmol/L Anion Gap (3-11) BUN (6-23) mg/dl Creatinine (0.6-1.4) mg/dl Est Cr Clr Drug Dosing Est GFR ( Amer) ml/min Est GFR (Non-Af Amer) ml/min BUN/Creatinine Ratio (10-20) Glucose (70-99(Fasting)) mg/dl Osmolality (280-300) mOsm/kg Lactate 2.5 H* (0.4-2.0) mmol/L Calcium (8.6-10.3) mg/dl Total Bilirubin (0.2-1.0) mg/dl AST (13-39) U/L ALT (7-52) U/L Alkaline Phosphatase (34-104) U/L Ammonia (18-72) umol/L Troponin I High Sens (0-20) pg/ml Total Protein (6.0-8.3) gm/dl Albumin (3.4-5.0) gm/dl Globulin (2.5-4.0) gm/dl Albumin/Globulin Ratio (0.9-2) Lipase (11-82) U/L Procalcitonin (0-0.5) ng/ml TSH (0.300-4.500) uIu/ml Urine Color Urine Appearance (Clear) Urine pH (4.5-7.5) Ur Specific Overton (1.000-1.030) Urine Protein (Negative) Urine Glucose (UA) (Negative) Urine Ketones (Negative) Urine Blood (Negative) Urine Nitrite (Negative) Urine Bilirubin (Negative) Urine Urobilinogen (Negative) Ur Leukocyte Esterase (Negative) Urine WBC (Auto) (0-5) /hpf Urine RBC (Auto) (0-4) /hpf U Hyaline Cast (Auto) (0-5) /lpf U Epithel Cells (Auto) (0-5) /lpf Urine Bacteria (Auto) (Negative) Urine Osmolality 264 L (500-800) mOsm/kg Ethyl Alcohol mg/dL (<10.0) mg/dl SARS-CoV-2 (PCR) (Negative) Influenza Type A (PCR) (Neg) Influenza Type B (PCR) (Neg) RSV (RT-PCR) (Neg) Administered Medications Discontinued Medications Lactated Ringer's (Lr) 500 mls @ 999 mls/hr IV .Q31M ONE Stop: 06/01/23 18:43 Last Infusion: 06/01/23 19:10 Dose: 0 mls/hr Documented By: Admin: 06/01/23 18:39 Dose: 999 mls/hr Documented By: RUSSELL Piperacillin Sod/Tazobactam Sod (Zosyn) 4.5 gm in 120 mls @ 240 mls/hr IV NOW ONE Stop: 06/01/23 20:29 Last Infusion: 06/01/23 20:44 Dose: 0 mls/hr Documented By: Admin: 06/01/23 20:13 Dose: 240 mls/hr Documented By: AN Sodium Chloride (Nss 1000ml) 1,000 mls @ 999 mls/hr IV .Q1H1M ONE Stop: 06/01/23 22:03 Last Admin: 06/01/23 21:21 Dose: Not Given Documented By: AN Ioversol (Optiray 320 100ml) 92 ml IV ONCE ONE Stop: 06/01/23 19:42 Last Admin: 06/01/23 19:42 Dose: 92 ml Documented By: EDK Imaging Data Radiologist's Impression: Chest X-Ray 06/01/23 16:23 XR chest 1V not portable HISTORY: illness COMPARISON: Chest 09/10/2022. FINDINGS: No pneumothorax. No pleural effusions. Multiple old, healed bilateral rib fractures again noted. Bibasilar linear densities are noted. These are nonspecific but favor subsegmental atelectasis or scarring given the low lung volumes. A pneumonia could also have a similar appearance. The upper lung zones are clear. No evidence for pulmonary edema. The heart is normal in size. IMPRESSION: Bibasilar linear densities. These are nonspecific but favor subsegmental atelectasis or scarring given the low lung volumes. A pneumonia could also have a similar appearance in the appropriate clinical setting. ACT 112: Negative or not required by law. Electronically signed by: Leonard Quiñones M.D. 06/01/2023 5:37 PM Abdomen/Pelvis CT 06/01/23 17:42 Exam(s): CT ABDOMEN + PELVIS With Contrast IV Amt: 92 ml optiray 320 EXAM: CT Abdomen and Pelvis With Intravenous Contrast CLINICAL HISTORY: Reason for exam: abd pain, elev bilirubin. TECHNIQUE: Axial computed tomography images of the abdomen and pelvis with intravenous contrast. Automated exposure control was utilized for the study. A dose lowering technique was utilized adhering to the principles of ALARA. CONTRAST: Patient received 92 ml optiray 320 of IV contrast COMPARISON: No relevant prior studies available. FINDINGS: Lung bases: Atelectasis at the lung bases. Pleural space: Trace bilateral pleural effusions. ABDOMEN: Liver: Cystic lesion in the anterior aspect of the LEFT hepatic lobe measures 6.5 x 4.1 cm. Nonemergent MRI recommended for further evaluation. Gallbladder and bile ducts: Cholelithiasis. Mild gallbladder wall thickening. Gallbladder ultrasound correlation recommended. No ductal dilation. Pancreas: Unremarkable. No mass. No ductal dilation. Spleen: Unremarkable. No splenomegaly. Adrenals: Unremarkable. No mass. Kidneys and ureters: Bilateral renal cysts. No hydronephrosis. Stomach and bowel: Diverticulosis, without acute diverticulitis. No small bowel obstruction. No free intraperitoneal air. PELVIS: Appendix: No findings to suggest acute appendicitis. Bladder: Unremarkable. No mass. Reproductive: Unremarkable as visualized. ABDOMEN and PELVIS: Intraperitoneal space: Unremarkable. No free air. No significant fluid collection. Bones/joints: Degenerative changes of the spine. Percutaneous pinning of LEFT femoral neck. No acute fracture. No dislocation. Soft tissues: Small fat-containing bilateral inguinal hernias. Vasculature: Atherosclerotic changes of the aorta. No abdominal aortic aneurysm. Lymph nodes: Unremarkable. No enlarged lymph nodes. IMPRESSION: 1. Cystic lesion in the anterior aspect of the LEFT hepatic lobe measures 6.5 x 4.1 cm. Nonemergent MRI recommended for further evaluation. 2. Trace bilateral pleural effusions. 3. Cholelithiasis. Mild gallbladder wall thickening. Gallbladder ultrasound correlation recommended. 4. Diverticulosis, without acute diverticulitis. No small bowel obstruction. No free intraperitoneal air. Electronically signed by: Duglas Virgen MD 06/01/23 20:[address] 06/01/23 18:07 Exam(s): CT HEAD Without Contrast EXAM: CT Head Without Intravenous Contrast CLINICAL HISTORY: Reason for exam: dizzy, weak. TECHNIQUE: Axial computed tomography images of the head/brain without intravenous contrast. Automated exposure control was utilized for the study. A dose lowering technique was utilized adhering to the principles of ALARA. COMPARISON: No relevant prior studies available. FINDINGS: No acute intracranial hemorrhage. No midline shift or mass effect. The territorial serna-white matter differentiation is maintained throughout. Age-related cerebral volume loss. Periventricular and subcortical white matter hypoattenuation, consistent with chronic microangiopathy. The visualized orbits appear grossly unremarkable. The calvarium is intact. The visualized paranasal sinuses and mastoid air cells are grossly clear. IMPRESSION: No acute intracranial hemorrhage, midline shift, or mass effect. Electronically signed by: Duglas Virgen MD 06/01/23 20:55 PM Gallbladder Ultrasound 06/01/23 21:38 Exam(s): US GALLBLADDER EXAM: US Abdomen Limited, Gallbladder CLINICAL HISTORY: Reason for exam: jaundice. TECHNIQUE: Real-time ultrasound of the right upper quadrant with image documentation. COMPARISON: No relevant prior studies available. FINDINGS: Liver: RIGHT hepatic cystic lesion measures 5.6 x 4.1 x 4.4 cm. Gallbladder: No cholelithiasis. Negative Zamora sign. Gallbladder wall at the upper limits of normal measuring 4 mm however, is contracted. Common bile duct: Unremarkable as visualized. No stones. No dilation. Pancreas: Nonvisualized pancreas. Pleural space: RIGHT pleural effusion. IMPRESSION: 1. RIGHT hepatic cystic lesion measures 5.6 x 4.1 x 4.4 cm. Consider evaluation with nonemergent abdominal MRI. 2. Trace RIGHT pleural effusion. 3. No cholelithiasis. Negative Zamora sign. No definite evidence of acute cholecystitis. Electronically signed by: Duglas Virgen MD 06/01/23 23:46 PM Discharge Plan Visit Data Chief Complaint: Abdominal Pain Stated Complaint: ABDOMINAL PAIN, JAUNDICE, DIFFICULTY WALKING ED Provider: Gold Olmos Discharge Problem: Total bilirubin, elevated, Acute hyponatremia, Weakness, Abdominal pain with jaundice Patient Disposition: Being Evaluated by Hospitalist Forms Stand Alone Forms: [facility] Prescriptions Prescriptions: No Action cholecalciferol (vitamin D3) 50 mcg (2,000 unit) capsule 50 mcg PO DAILY Qty: 30 5RF Patient Comments: TAKES HS levetiracetam 500 mg tablet 1,500 mg PO Q12H Qty: 540 3RF doxazosin 2 mg tablet 2 mg PO DAILY Qty: 90 3RF metoprolol tartrate 50 mg tablet 50 mg PO Q12H Qty: 180 3RF folic acid 1 mg tablet 1 mg PO DAILY Qty: 90 3RF atorvastatin 40 mg tablet 40 mg PO QAM Qty: 90 3RF duloxetine 30 mg capsule,delayed release(DR/EC) 30 mg PO DAILY Qty: 90 1RF aspirin 81 mg Tablet,Delayed Release (Dr/Ec) 81 mg PO QAM Qty: 30 0RF amlodipine 10 mg tablet 20 mg PO DAILY pantoprazole 40 mg tablet,delayed release (DR/EC) 40 mg PO BID Referrals Referrals: Sudarshan Trinidad DO [Primary Care Provider] -
[2023-06-01 17:57] LABS: INR 1.1 (0.9-1.1); Partial Thromboplastin Ratio 1.1; Prothrombin Time 11.9 Seconds (9.0-12.0)
[2023-06-01] MEDS ORDERED: LACTATED RINGER'S 500 ML IV ONE (18:13)
[2023-06-01 19:41] LABS: Appearance Urine Clear (Clear); Bacteria Urine Automated Negative (Negative); Bilirubin Urine 2+ (Negative); Blood Urine Negative (Negative); Cast Urine Automated 0 /lpf (0-5); Color Urine Dark Yellow; Epithelial Cell Urine Auto 0-5 /lpf (0-5); Glucose Urine UA Negative (Negative); Ketones Urine Negative (Negative); Leukocyte Esterase Urine Negative (Negative); Nitrite Urine Positive (Negative); Protein Urine Negative (Negative); RBC Urine Automated 0-4 /hpf (0-4); Urobilinogen Urine Positive (Negative)
[2023-06-01] MEDS ORDERED: OPTIRAY 320 100ml IV ONE (19:41)
[2023-06-01] MEDS ORDERED: PIPERACILLIN/TAZOBACTAM 4.5 GM/120 ML BAG IV ONE (20:00)
--- NOTE | 2023-06-01 20:56 | CT Scan Report ---
Exam(s): CT HEAD Without Contrast EXAM: CT Head Without Intravenous Contrast CLINICAL HISTORY: Reason for exam: dizzy, weak. TECHNIQUE: Axial computed tomography images of the head/brain without intravenous contrast. Automated exposure control was utilized for the study. A dose lowering technique was utilized adhering to the principles of ALARA. COMPARISON: No relevant prior studies available. FINDINGS: No acute intracranial hemorrhage. No midline shift or mass effect. The territorial serna-white matter differentiation is maintained throughout. Age-related cerebral volume loss. Periventricular and subcortical white matter hypoattenuation, consistent with chronic microangiopathy. The visualized orbits appear grossly unremarkable. The calvarium is intact. The visualized paranasal sinuses and mastoid air cells are grossly clear. IMPRESSION: No acute intracranial hemorrhage, midline shift, or mass effect. Electronically signed by: Duglas Virgen MD 06/01/23 20:55 PM
--- NOTE | 2023-06-01 20:58 | CT Scan Report ---
Exam(s): CT ABDOMEN + PELVIS With Contrast IV Amt: 92 ml optiray 320 EXAM: CT Abdomen and Pelvis With Intravenous Contrast CLINICAL HISTORY: Reason for exam: abd pain, elev bilirubin. TECHNIQUE: Axial computed tomography images of the abdomen and pelvis with intravenous contrast. Automated exposure control was utilized for the study. A dose lowering technique was utilized adhering to the principles of ALARA. CONTRAST: Patient received 92 ml optiray 320 of IV contrast COMPARISON: No relevant prior studies available. FINDINGS: Lung bases: Atelectasis at the lung bases. Pleural space: Trace bilateral pleural effusions. ABDOMEN: Liver: Cystic lesion in the anterior aspect of the LEFT hepatic lobe measures 6.5 x 4.1 cm. Nonemergent MRI recommended for further evaluation. Gallbladder and bile ducts: Cholelithiasis. Mild gallbladder wall thickening. Gallbladder ultrasound correlation recommended. No ductal dilation. Pancreas: Unremarkable. No mass. No ductal dilation. Spleen: Unremarkable. No splenomegaly. Adrenals: Unremarkable. No mass. Kidneys and ureters: Bilateral renal cysts. No hydronephrosis. Stomach and bowel: Diverticulosis, without acute diverticulitis. No small bowel obstruction. No free intraperitoneal air. PELVIS: Appendix: No findings to suggest acute appendicitis. Bladder: Unremarkable. No mass. Reproductive: Unremarkable as visualized. ABDOMEN and PELVIS: Intraperitoneal space: Unremarkable. No free air. No significant fluid collection. Bones/joints: Degenerative changes of the spine. Percutaneous pinning of LEFT femoral neck. No acute fracture. No dislocation. Soft tissues: Small fat-containing bilateral inguinal hernias. Vasculature: Atherosclerotic changes of the aorta. No abdominal aortic aneurysm. Lymph nodes: Unremarkable. No enlarged lymph nodes. IMPRESSION: 1. Cystic lesion in the anterior aspect of the LEFT hepatic lobe measures 6.5 x 4.1 cm. Nonemergent MRI recommended for further evaluation. 2. Trace bilateral pleural effusions. 3. Cholelithiasis. Mild gallbladder wall thickening. Gallbladder ultrasound correlation recommended. 4. Diverticulosis, without acute diverticulitis. No small bowel obstruction. No free intraperitoneal air. Electronically signed by: Duglas Virgen MD 06/01/23 20:57 PM
[2023-06-01] MEDS ORDERED: SODIUM CHLORIDE 0.9% 1,000 ML IV ONE (21:03)
--- NOTE | 2023-06-01 23:28 | History & Physical Report ---
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 There was also noted cholelithiasis and mild gallbladder wall thickening with gallbladder ultrasound recommended for correlation. Ultrasound of gallbladder shows a right hepatic cystic lesion measuring 5.6 x 4.1 x 4.4 cm, with recommendation for nonemergent abdominal MRI. No cholelithiasis negative Zamora sign no definite evidence of acute cholecystitis We will repeat CBC with differential, chemistry profile and magnesium level in the a.m. Will discuss with , when she returns in the morning, to get approval for routine MRI of abdomen to further assess Continue pantoprazole 40 mg p.o. twice daily Significant leukocytosis, for now empiric treatment with Zosyn 4.5 g IV every 8 hours Consult gastroenterology Hyponatremia/hypokalemia/hypoosmolality- Looks to be a primary process of polydipsia We will fluid restrict overnight to 1200 mL daily, at the same time while keeping patient n.p.o. for possible further liver testing Repeat laboratories in a.m., also checking magnesium levels Potassium chloride 10 mEq IV riders x3 Cerebellar ataxia/nonepileptic convulsions- Continue Keppra 1500 mg p.o. every 12 hours Hypertension- Continue metoprolol tartrate 50 mg p.o. twice daily with hold parameters History of Present Illness Chief Complaint: The patient presents to the emergency department with complaint of 1 week of mid abdominal pain, occasionally accompanied by nausea, without vomiting, and worsening generalized weakness and unsteadiness on feet. 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 He denies any current use of alcoholic beverages, but does drink frequent amounts of water. Significant laboratory normalities: Sodium 124, potassium 3.0, glucose 124, WBC 21.35, urine osmolality 264, serum osmolality 263, lactic acid 2.5, AST 84, albumin 3.3, total bilirubin 8.4, alkaline phosphatase 496 and Pro- 0.87 Allergies Allergy/AdvReac Type Severity Reaction Status Date / Time No Known Allergies Allergy Verified 06/01/23 20:06 Home Medications Medication Instructions Recorded Confirmed Type cholecalciferol (vitamin D3) 50 50 mcg PO DAILY #30 caps 07/20/20 06/01/23 Rx mcg (2,000 unit) capsule aspirin 81 mg tablet,delayed 81 mg PO QAM #30 tabs 08/30/21 06/01/23 Rx release levetiracetam 500 mg tablet 1,500 mg PO Q12H #540 tabs 05/31/22 06/01/23 Rx doxazosin 2 mg tablet 2 mg PO DAILY #90 tabs 07/22/22 06/01/23 Rx metoprolol tartrate 50 mg tablet 50 mg PO Q12H #180 tabs 07/22/22 06/01/23 Rx folic acid 1 mg tablet 1 mg PO DAILY #90 tabs 07/26/22 06/01/23 Rx atorvastatin 40 mg tablet 40 mg PO QAM #90 tabs 12/27/22 06/01/23 Rx duloxetine 30 mg capsule,delayed 30 mg PO DAILY #90 caps 03/07/23 06/01/23 Rx release amlodipine 10 mg tablet 20 mg PO DAILY 06/01/23 06/01/23 History pantoprazole 40 mg tablet,delayed 40 mg PO BID 06/01/23 06/01/23 History release Past Med/Surg History Medical History (Updated 06/02/23 @ 03:16 by Prem Alejo MD) Abnormal liver function test Abnormal MRI of head Alcohol withdrawal hallucinosis Alcohol withdrawal seizure PT DENIES Arthritis Closed C4 fracture COVID-19 03/01/22 CVA (cerebral vascular accident) Elevated liver enzymes Fracture of distal fibula Hx of gout Hx of intracranial hemorrhage MARCH 2020>DRUG INDUCED COMA AT [place]. "HAD A FEEDING TUBE SHORT TERM". PT UNSURE OF DETAILS Hypertension Lyme disease Seizure Seizure MARCH 2020 (FELL AND HIT HEAD>DRUG INDUCED COMA/HOSPITALIZED AT [facility]) FOLLOWS WITH [facility] Sprain of lateral ligament of ankle joint Syncope Temporal bone fracture Surgical History H/O wrist surgery RT Hx of wisdom tooth extraction Family History Other No family history of adverse response to anesthesia No significant family history Denies family history of Prostate cancer Breast cancer Colorectal cancer Social History (Updated 04/08/23 @ 15:15 by Gabi Marinelli LPN) Smoking Status: Never smoker Tobacco Type: Smokeless Tobacco (Dip or Chew) Second Hand Exposure: No; Do You Dip or Chew Tobacco: Yes (1 can/day); Hx Alcohol Use: Yes Alcohol type: beer Hx Substance Use: No Preferred Language: Maori Communication Ability: Effective 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 HEENT--PERRL, EOMI, mucous membranes and oropharynx normal. Neck--supple. No JVD. No bruits. Thyroid normal, trachea midline, no adenopathy. Heart--normal S1 and S2. No murmurs, rubs or gallops. Lungs--clear bilaterally, no respiratory distress, no accessory muscle use. Abdomen--normal bowel sounds and soft. Nontender. Nondistended, no hernias or masses, no organomegaly. Extremities--no cyanosis or clubbing. No edema. Dermatologic--normal skin turgor, normal color, no abnormal lymph nodes, no rash. Neurologic--cranial nerves II through XII grossly intact. Rheumatologic--normal range of motion. Psychiatric--normal affect. Results & Data Results & Data Vital Signs (Past 12 Hours) Vital Signs Temp Pulse Pulse Resp BP BP Pulse Ox 06/01/23 23:00 93 H 17 128/91 91 06/01/23 22:33 93 H 16 124/83 91 06/01/23 22:00 92 H 16 122/79 90 06/01/23 21:00 99 H 17 115/76 93 06/01/23 20:30 93 H 16 122/81 92 06/01/23 20:00 96 H 16 130/84 90 06/01/23 19:13 105 H 18 136/88 90 06/01/23 16:19 36.6 C 111 H 20 102/67 94 O2 Del Method 06/01/23 23:00 Room Air 06/01/23 22:33 Room Air 06/01/23 22:00 Room Air 06/01/23 21:00 Room Air 06/01/23 20:30 Room Air 06/01/23 20:00 Room Air 06/01/23 19:13 Room Air 06/01/23 16:19 Room Air Laboratory Results Laboratory Results WBC 21.35 K/ul (4.8-10.8) H 06/01/23 16:30 RBC 4.57 M/uL (4.70-6.10) L 06/01/23 16:30 Hgb 13.3 g/dl (14.0-18.0) L 06/01/23 16:30 Hct 37.6 % (42.0-52.0) L 06/01/23 16:30 MCV 82.3 fL (80.0-100.0) 06/01/23 16:30 MCH 29.1 pg (25.0-34.0) 06/01/23 16:30 MCHC 35.4 g/dL (32.0-36.0) 06/01/23 16:30 RDW Std Deviation 39.8 fL (36.4-46.3) 06/01/23 16:30 RDW Coeff of Odin 13.4 % (11.5-14.5) 06/01/23 16:30 Plt Count 344 K/uL (130-400) 06/01/23 16:30 MPV 10.4 fL (9.4-12.4) 06/01/23 16:30 Immature Gran % (Auto) 1.2 % 06/01/23 16:30 Neut % (Auto) 87.8 % 06/01/23 16:30 Lymph % (Auto) 5.8 % 06/01/23 16:30 [place] % (Auto) 4.8 % 06/01/23 16:30 Eos % (Auto) 0.2 % 06/01/23 16:30 Baso % (Auto) 0.2 % 06/01/23 16:30 Neut # (Auto) 18.75 K/uL (1.40-6.50) H 06/01/23 16:30 Lymph # (Auto) 1.24 K/uL (1.20-3.40) 06/01/23 16:30 [place] # (Auto) 1.02 K/uL (0.11-0.59) H 06/01/23 16:30 Eos # (Auto) 0.05 K/uL (0.00-0.50) 06/01/23 16:30 Baso # (Auto) 0.04 K/uL (0.00-0.20) 06/01/23 16:30 Immature Gran # (Auto) 0.25 K/uL (0.01-0.20) H 06/01/23 16:30 PT 11.9 Seconds (9.0-12.0) 06/01/23 16:30 INR 1.1 (0.9-1.1) 06/01/23 16:30 APTT 32.0 Seconds (21.0-31.0) H 06/01/23 16:30 PTT Ratio 1.1 06/01/23 16:30 Sodium 124 mmol/L (136-145) L 06/01/23 16:30 Potassium 3.0 mmol/L (3.5-5.1) L 06/01/23 16:30 Chloride 85 mmol/L (98-107) L 06/01/23 16:30 Carbon Dioxide 27 mmol/L (21-32) 06/01/23 16:30 Anion Gap 12 (3-11) H 06/01/23 16:30 BUN 7 mg/dl (6-23) 06/01/23 16:30 Creatinine 0.88 mg/dl (0.6-1.4) 06/01/23 16:30 Est Cr Clr Drug Dosing Not Reportable 06/01/23 16:30 Est GFR ( Amer) 106.0 ml/min 06/01/23 16:30 Est GFR (Non-Af Amer) 91.4 ml/min 06/01/23 16:30 BUN/Creatinine Ratio 8.0 (10-20) L 06/01/23 16:30 Glucose 124 mg/dl (70-99(Fasting)) H 06/01/23 16:30 Osmolality 263 mOsm/kg (280-300) L 06/01/23 18:30 Lactate 2.5 mmol/L (0.4-2.0) H* 06/01/23 20:26 Calcium 8.4 mg/dl (8.6-10.3) L 06/01/23 16:30 Total Bilirubin 8.4 mg/dl (0.2-1.0) H 06/01/23 16:30 AST 84 U/L (13-39) H 06/01/23 16:30 ALT 48 U/L (7-52) 06/01/23 16:30 Alkaline Phosphatase 496 U/L (34-104) H 06/01/23 16:30 Ammonia 29.0 umol/L (18-72) 06/01/23 18:30 Troponin I High Sens 14.9 pg/ml (0-20) 06/01/23 18:30 Total Protein 6.4 gm/dl (6.0-8.3) 06/01/23 16:30 Albumin 3.3 gm/dl (3.4-5.0) L 06/01/23 16:30 Globulin 3.1 gm/dl (2.5-4.0) 06/01/23 16:30 Albumin/Globulin Ratio 1.1 (0.9-2) 06/01/23 16:30 Lipase 27 U/L (11-82) 06/01/23 16:30 Procalcitonin 0.87 ng/ml (0-0.5) H 06/01/23 18:30 TSH 0.659 uIu/ml (0.300-4.500) 06/01/23 18:30 Urine Color Dark Yellow 06/01/23 19:24 Urine Appearance Clear (Clear) 06/01/23 19:24 Urine pH 6.0 (4.5-7.5) 06/01/23 19:24 Ur Specific [place] 1.010 (1.000-1.030) 06/01/23 19:24 Urine Protein Negative (Negative) 06/01/23 19:24 Urine Glucose (UA) Negative (Negative) 06/01/23 19:24 Urine Ketones Negative (Negative) 06/01/23 19:24 Urine Blood Negative (Negative) 06/01/23 19:24 Urine Nitrite Positive (Negative) A 06/01/23 19:24 Urine Bilirubin 2+ (Negative) H 06/01/23 19:24 Urine Urobilinogen Positive (Negative) H 06/01/23 19:24 Ur Leukocyte Esterase Negative (Negative) 06/01/23 19:24 Urine WBC (Auto) 1-5 /hpf (0-5) 06/01/23 19:24 Urine RBC (Auto) 0-4 /hpf (0-4) 06/01/23 19:24 U Hyaline Cast (Auto) 0 /lpf (0-5) 06/01/23 19:24 U Epithel Cells (Auto) 0-5 /lpf (0-5) 06/01/23 19:24 Urine Bacteria (Auto) Negative (Negative) 06/01/23 19:24 Urine Osmolality 264 mOsm/kg (500-800) L 06/01/23 19:24 Ethyl Alcohol mg/dL < 10.0 mg/dl (<10.0) 06/01/23 18:30 SARS-CoV-2 (PCR) NEGATIVE (Negative) 06/01/23 16:30 Influenza Type A (PCR) Negative (Neg) 06/01/23 16:30 Influenza Type B (PCR) Negative (Neg) 06/01/23 16:30 RSV (RT-PCR) Negative (Neg) 06/01/23 16:30 Impressions Chest X-Ray 06/01/23 16:23 XR chest 1V not portable HISTORY: illness COMPARISON: Chest 09/10/2022. FINDINGS: No pneumothorax. No pleural effusions. Multiple old, healed bilateral rib fractures again noted. Bibasilar linear densities are noted. These are nonspecific but favor subsegmental atelectasis or scarring given the low lung volumes. A pneumonia could also have a similar appearance. The upper lung zones are clear. No evidence for pulmonary edema. The heart is normal in size. IMPRESSION: Bibasilar linear densities. These are nonspecific but favor subsegmental atelectasis or scarring given the low lung volumes. A pneumonia could also have a similar appearance in the appropriate clinical setting. ACT 112: Negative or not required by law. Electronically signed by: Leonard Quiñones M.D. 06/01/2023 5:37 PM Abdomen/Pelvis CT 06/01/23 17:42 Exam(s): CT ABDOMEN + PELVIS With Contrast IV Amt: 92 ml optiray 320 EXAM: CT Abdomen and Pelvis With Intravenous Contrast CLINICAL HISTORY: Reason for exam: abd pain, elev bilirubin. TECHNIQUE: Axial computed tomography images of the abdomen and pelvis with intravenous contrast. Automated exposure control was utilized for the study. A dose lowering technique was utilized adhering to the principles of ALARA. CONTRAST: Patient received 92 ml optiray 320 of IV contrast COMPARISON: No relevant prior studies available. FINDINGS: Lung bases: Atelectasis at the lung bases. Pleural space: Trace bilateral pleural effusions. ABDOMEN: Liver: Cystic lesion in the anterior aspect of the LEFT hepatic lobe measures 6.5 x 4.1 cm. Nonemergent MRI recommended for further evaluation. Gallbladder and bile ducts: Cholelithiasis. Mild gallbladder wall thickening. Gallbladder ultrasound correlation recommended. No ductal dilation. Pancreas: Unremarkable. No mass. No ductal dilation. Spleen: Unremarkable. No splenomegaly. Adrenals: Unremarkable. No mass. Kidneys and ureters: Bilateral renal cysts. No hydronephrosis. Stomach and bowel: Diverticulosis, without acute diverticulitis. No small bowel obstruction. No free intraperitoneal air. PELVIS: Appendix: No findings to suggest acute appendicitis. Bladder: Unremarkable. No mass. Reproductive: Unremarkable as visualized. ABDOMEN and PELVIS: Intraperitoneal space: Unremarkable. No free air. No significant fluid collection. Bones/joints: Degenerative changes of the spine. Percutaneous pinning of LEFT femoral neck. No acute fracture. No dislocation. Soft tissues: Small fat-containing bilateral inguinal hernias. Vasculature: Atherosclerotic changes of the aorta. No abdominal aortic aneurysm. Lymph nodes: Unremarkable. No enlarged lymph nodes. IMPRESSION: 1. Cystic lesion in the anterior aspect of the LEFT hepatic lobe measures 6.5 x 4.1 cm. Nonemergent MRI recommended for further evaluation. 2. Trace bilateral pleural effusions. 3. Cholelithiasis. Mild gallbladder wall thickening. Gallbladder ultrasound correlation recommended. 4. Diverticulosis, without acute diverticulitis. No small bowel obstruction. No free intraperitoneal air. Electronically signed by: Duglas Virgen MD 06/01/23 20:[address] 06/01/23 18:07 Exam(s): CT HEAD Without Contrast EXAM: CT Head Without Intravenous Contrast CLINICAL HISTORY: Reason for exam: dizzy, weak. TECHNIQUE: Axial computed tomography images of the head/brain without intravenous contrast. Automated exposure control was utilized for the study. A dose lowering technique was utilized adhering to the principles of ALARA. COMPARISON: No relevant prior studies available. FINDINGS: No acute intracranial hemorrhage. No midline shift or mass effect. The territorial serna-white matter differentiation is maintained throughout. Age-related cerebral volume loss. Periventricular and subcortical white matter hypoattenuation, consistent with chronic microangiopathy. The visualized orbits appear grossly unremarkable. The calvarium is intact. The visualized paranasal sinuses and mastoid air cells are grossly clear. IMPRESSION: No acute intracranial hemorrhage, midline shift, or mass effect. Electronically signed by: Duglas Virgen MD 06/01/23 20:55 PM Gallbladder Ultrasound 06/01/23 21:38 Exam(s): US GALLBLADDER EXAM: US Abdomen Limited, Gallbladder CLINICAL HISTORY: Reason for exam: jaundice. TECHNIQUE: Real-time ultrasound of the right upper quadrant with image documentation. COMPARISON: No relevant prior studies available. FINDINGS: Liver: RIGHT hepatic cystic lesion measures 5.6 x 4.1 x 4.4 cm. Gallbladder: No cholelithiasis. Negative Zamora sign. Gallbladder wall at the upper limits of normal measuring 4 mm however, is contracted. Common bile duct: Unremarkable as visualized. No stones. No dilation. Pancreas: Nonvisualized pancreas. Pleural space: RIGHT pleural effusion. IMPRESSION: 1. RIGHT hepatic cystic lesion measures 5.6 x 4.1 x 4.4 cm. Consider evaluation with nonemergent abdominal MRI. 2. Trace RIGHT pleural effusion. 3. No cholelithiasis. Negative Zamora sign. No definite evidence of acute cholecystitis. 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
--- NOTE | 2023-06-01 23:47 | Ultrasound Report ---
Exam(s): US GALLBLADDER EXAM: US Abdomen Limited, Gallbladder CLINICAL HISTORY: Reason for exam: jaundice. TECHNIQUE: Real-time ultrasound of the right upper quadrant with image documentation. COMPARISON: No relevant prior studies available. FINDINGS: Liver: RIGHT hepatic cystic lesion measures 5.6 x 4.1 x 4.4 cm. Gallbladder: No cholelithiasis. Negative Zamora sign. Gallbladder wall at the upper limits of normal measuring 4 mm however, is contracted. Common bile duct: Unremarkable as visualized. No stones. No dilation. Pancreas: Nonvisualized pancreas. Pleural space: RIGHT pleural effusion. IMPRESSION: 1. RIGHT hepatic cystic lesion measures 5.6 x 4.1 x 4.4 cm. Consider evaluation with nonemergent abdominal MRI. 2. Trace RIGHT pleural effusion. 3. No cholelithiasis. Negative Zamora sign. No definite evidence of acute cholecystitis. Electronically signed by: Duglas Virgen MD 06/01/23 23:46 PM
[2023-06-02] MEDS ORDERED: ONDANSETRON INJ 2 MG/ML 2 ML VIAL IV PRN (02:06)
[2023-06-02] MEDS: POTASSIUM CHLORIDE / WTR 10 MEQ/100 ML PLCT IV SCH ×6 (03:42→13:02)
[2023-06-02] MEDS: METOPROLOL TARTRATE 50 MG TAB PO SCH ×4 (03:43→20:19)
[2023-06-02] MEDS: levETIRAcetam 500 MG TAB PO SCH ×4 (03:44→20:19)
[2023-06-02 04:33] LABS: Basophils # (auto) 0.05 K/uL (0.00-0.20); Basophils % (auto) 0.2 %; Eosinophils # (auto) 0.04 K/uL (0.00-0.50); Eosinophils % (auto) 0.2 %; Hematocrit (blood only) 32.6 % (42.0-52.0); Hemoglobin 12.1 g/dl (14.0-18.0); Immature Granulocytes # (auto) 0.24 K/uL (0.01-0.20); Immature Granulocytes % (auto) 1.1 %; Lymphocytes # (auto) 1.28 K/uL (1.20-3.40); Lymphocytes % (auto) 5.9 %; Mean Corpuscular Hemoglobin 29.7 pg (25.0-34.0); Mean Corpuscular Hgb Conc 37.1 g/dL (32.0-36.0); Mean Corpuscular Volume 79.9 fL (80.0-100.0); Mean Platelet Volume 10.1 fL (9.4-12.4); Monocytes # (auto) 1.36 K/uL (0.11-0.59); Monocytes % (auto) 6.2 %; Neutrophils % (auto) 86.4 %; Platelet Count 372 K/uL (130-400); RDW Coefficient of Variation 13.4 % (11.5-14.5); RDW Standard Deviation 38.7 fL (36.4-46.3); Red Blood Count 4.08 M/uL (4.70-6.10); White Blood Count 21.77 K/ul (4.8-10.8)
[2023-06-02 04:45] LABS: Albumin Globulin Ratio 0.8 (0.9-2); Albumin Level 2.8 gm/dl (3.4-5.0); BUN Creatinine Ratio 7.3 (10-20); Bilirubin,Total 8.5 mg/dl (0.2-1.0); Calcium 7.7 mg/dl (8.6-10.3); Creatinine Clr Calc Pharmacy 91.6 ml/min; Est GFR (African American) 97.1 ml/min; Est GFR (Non-African American) 83.8 ml/min; Globulin 3.4 gm/dl (2.5-4.0); Magnesium 1.7 mg/dl (1.7-2.4); Potassium 2.8 mmol/L (3.5-5.1); Total Protein 6.2 gm/dl (6.0-8.3)
[2023-06-02 05:40] LABS: INR 1.1 (0.9-1.1); Partial Thromboplastin Ratio 1.1; Partial Thromboplastin Time 31.9 Seconds (21.0-31.0); Prothrombin Time 12.3 Seconds (9.0-12.0)
[2023-06-02] MEDS: PIPERACILLIN/TAZOBACTAM 4.5 GM in DEXTROSE 5% 100 ML IV SCH ×3 (06:32→21:16)
[2023-06-02] MEDS: PANTOprazole 40 MG TAB PO SCH ×2 (08:50→20:19)
[2023-06-02 10:00] LABS: Bilirubin Direct 5.1 mg/dl (0-0.2)
--- NOTE | 2023-06-02 14:15 | Hospitalist Progress Note ---
Date of Service June 02, 2023 Assessment & Plan (1) Total bilirubin, elevated: Plan: painless Jaundice , cyctic liver lesion, previous alcohol use none for 2 years as quit after traumatic seizure. not significant transaminase elevation, does have elevated alk phos, elevted bili mostly direct GI consult, hepatitis serologies are pending CT scan of abdomen and pelvis with IV contrast shows a cystic lesion in the anterior aspect of the left hepatic lobe measuring 6.5 x 4.1 cm, There was also noted cholelithiasis and mild gallbladder wall thickening with gallbladder Ultrasound of gallbladder shows a right hepatic cystic lesion measuring 5.6 x 4.1 x 4.4 cm, No cholelithiasis negative Zamora sign no definite evidence of acute cholecystitis pending MRCP does have leukocytosis is no Zosyn (2) Acute hyponatremia: Plan: Hyponatremia/hypokalemia/hypoosmolality- Looks to be a primary process of polydipsia fluid restrict replete and follow (3) Hypertension: Plan: Hypertension- Continue metoprolol tartrate 50 mg p.o. 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 every 12 hours previous alcohol will have pT/OT once recovers thiamine in 2021 was normal Admission and Anticipated Discharge Date Admission Date: June 01, 2023 Results & Data Results & Data Vital Signs (Past 12 Hours) Vital Signs Temp Pulse Resp BP Pulse Ox O2 Del Method 06/02/23 11:11 99.0 F 76 20 117/64 93 Room Air 06/02/23 08:48 98.2 F 78 20 123/74 92 Room Air 06/02/23 03:41 108 H 24 116/78 91 Room Air PG Care Time/CCT Total # of Minutes Spent Total Time Spent with Patient: Total time spent is greater than 50% in coordination of care (as documented) at patient's floor/unit and/or counseling patient: Coding Level of Care Code 67924 SUB INP/OBS CARE 3/50MIN Diagnoses Total bilirubin, elevated R17 Acute hyponatremia E87.1 Hypertension I10 Cerebellar ataxia G11.9
--- NOTE | 2023-06-02 15:16 | Gastrointestinal Consultation ---
Date of Consultation June 02, 2023 Assessment & Plan (1) Abdominal pain with jaundice: (2) Liver mass: Plan abdominal pain and jaundice secondary to intrahepatic cholestasis from liver mass, concern for malignancy recs: agree with obtaining MRI to better characterize mass, may need biopsy of it eventually supportive care, IVFs abx as per primary team Thank you for allowing me to participate in the care of this patient. History of Present Illness Attending Physician: Tesfaye Yee MD History of Present Illness 62 yo male with hx TBI, cerebellar ataxia, CAD, HTN, ETOH abuse here with abdominal pain, jaundice, dizziness. Imaging shows a hepatic lobe mass 6 cm or so in size. Tbili is 8.4, ALP 496. He notes decreased po intake recently due to dysphagia and some vomiting. has hx esophageal stricture dilated by Dr. Mcclendon in 2020. labs reviewed. Allergies Allergy/AdvReac Type Severity Reaction Status Date / Time No Known Allergies Allergy Verified 06/01/23 20:06 Home Medications Medication Instructions Recorded Confirmed Type cholecalciferol (vitamin D3) 50 50 mcg PO DAILY #30 caps 07/20/20 06/01/23 Rx mcg (2,000 unit) capsule aspirin 81 mg tablet,delayed 81 mg PO QAM #30 tabs 08/30/21 06/01/23 Rx release levetiracetam 500 mg tablet 1,500 mg PO Q12H #540 tabs 05/31/22 06/01/23 Rx doxazosin 2 mg tablet 2 mg PO DAILY #90 tabs 07/22/22 06/01/23 Rx metoprolol tartrate 50 mg tablet 50 mg PO Q12H #180 tabs 07/22/22 06/01/23 Rx folic acid 1 mg tablet 1 mg PO DAILY #90 tabs 07/26/22 06/01/23 Rx atorvastatin 40 mg tablet 40 mg PO QAM #90 tabs 12/27/22 06/01/23 Rx duloxetine 30 mg capsule,delayed 30 mg PO DAILY #90 caps 03/07/23 06/01/23 Rx release amlodipine 10 mg tablet 20 mg PO DAILY 06/01/23 06/01/23 History pantoprazole 40 mg tablet,delayed 40 mg PO BID 06/01/23 06/01/23 History release Patient History Medical History Abnormal liver function test Abnormal MRI of head Alcohol withdrawal hallucinosis Alcohol withdrawal seizure PT DENIES Arthritis Closed C4 fracture COVID-19 03/01/22 CVA (cerebral vascular accident) Elevated liver enzymes Fracture of distal fibula Hx of gout Hx of intracranial hemorrhage MARCH 2020>DRUG INDUCED COMA AT [place]. "HAD A FEEDING TUBE SHORT TERM". PT UNSURE OF DETAILS Hypertension Lyme disease Seizure Seizure MARCH 2020 (FELL AND HIT HEAD>DRUG INDUCED COMA/HOSPITALIZED AT [facility]) FOLLOWS WITH [facility] Sprain of lateral ligament of ankle joint Syncope Temporal bone fracture Surgical History H/O wrist surgery RT Hx of wisdom tooth extraction Family History Other No family history of adverse response to anesthesia No significant family history Denies family history of Prostate cancer Breast cancer Colorectal cancer Social History Smoking Status: Never smoker Tobacco Type: Smokeless Tobacco (Dip or Chew) Second Hand Exposure: No; Do You Dip or Chew Tobacco: Yes (1 can/day); Hx Alcohol Use: Yes Alcohol type: beer Hx Substance Use: No Preferred Language: Omani Communication Ability: Effective [employer] Required: No Beliefs That Will Affect Care: None marital status: Current Living Situation: Family Current Living Situation Comment: Living with , daughter, son-in-law, grandchildren, nephew Other Information That Helps Us Care for You: No Feels Safe at Home: Yes Safety Concerns: Feels Safe At This Time Diet: regular caffeine: Yes Dental Care, Regularly: No Assistive Devices: Glasses Review of Systems Constitutional: no fever, no chills and no weight loss Eyes: as per Subjective / HPI Ear, Nose, Mouth, Throat: as per Subjective / HPI Respiratory: no dyspnea and no dyspnea on exertion Cardiovascular: no chest pain and no palpitations Gastrointestinal: as per Subjective / HPI Musculoskeletal: no joint pain and no swelling Integumentary: no rash and no lesions Neurologic: no numbness and no paresthesia Psychiatric: no depression and no anxiety Endocrine: no fatigue Hematologic / Lymphatic: no easy bleeding and no easy bruising Physical Exam Constitutional: WD/WN, vitals as above Eyes: EOM intact bilaterally Neck: normal visual inspection Respiratory: normal respiratory effort, lungs clear to auscultation Cardiovascular: RRR, no murmur, no edema Gastrointestinal (Abdomen): Inspection/Auscultation: abdomen normal to inspection; abdomen not distended Percussion/Palpation: abdomen soft; abdomen nontender and no hepatosplenomegaly Musculoskeletal: Head/Neck/Chest: normocephalic and head atraumatic Extremities: no cyanosis Skin: no rashes, warm and dry Neurologic: moves all extremities Psychiatric: Orientation: alert and cooperative Affect: euthymic affect Results & Data Vital Signs (Past 12 Hours) Vital Signs Temp Pulse Resp BP Pulse Ox O2 Del Method 06/02/23 11:11 37.2 C 76 20 117/64 93 Room Air 06/02/23 08:48 36.8 C 78 20 123/74 92 Room Air 06/02/23 03:41 108 H 24 116/78 91 Room Air PG Care Time/CCT Total # of Minutes Spent Total Time Spent with Patient: Total time spent is greater than 50% in coordination of care (as documented) at patient's floor/unit and/or counseling patient: Coding Level of Care Code 63215 IN/OBS CONSULT LVL 3,45M Diagnoses Abdominal pain with jaundice R10.9; R17 Liver mass R16.0
--- NOTE | 2023-06-02 23:19 | Electrocardiogram Report ---
Test Reason : Blood Pressure : / mmHG Vent. Rate : 111 BPM Atrial Rate : 111 BPM P-R Int : 156 ms QRS Dur : 078 ms QT Int : 338 ms P-R-T Axes : 025 -10 032 degrees QTc Int : 459 ms Sinus tachycardia Nonspecific ST and T wave abnormality Abnormal ECG When compared with ECG of 10-SEP-2022 02:41, Vent. rate has increased BY 40 BPM Confirmed by Jeronimo Orozco ([id number]) on 06/02/2023 11:19:25 PM Referred By: REFERRED SELF Confirmed By:Jeronimo Orozco
--- NOTE | 2023-06-03 01:49 | Magnetic Resonance Report ---
Exam(s): MRI MRCP EXAM: MR Abdomen Without Intravenous Contrast, MRCP Protocol CLINICAL HISTORY: Reason for exam: cystic liver lesion is it compressing ducts. TECHNIQUE: Multiplanar magnetic resonance images of the abdomen without intravenous contrast using MRCP protocol. COMPARISON: CT abdomen and pelvis, 06/01/23 FINDINGS: Heart size is normal. Pericardial effusion measures 5 mm. There are small bilateral layering pleural effusions. There is a simple-appearing cyst in the anterior left hepatic lobe measuring 4.3 cm AP by 6.2 cm transverse by 4.5 cm craniocaudal. No additional focal liver lesions are visualized. There is gallbladder wall thickening, likely due to contracted state. Common bile duct measures 6 mm, normal for patient age. There is choledocholithiasis with 5 mm stone at the distal common bile duct. Spleen, pancreas, and adrenal glands are unremarkable. Simple exophytic cyst of the right kidney measures 2.8 cm; no further follow-up is required. Additional simple parapelvic right kidney cyst measures 2.3 cm; no further follow-up is required. Kidneys are similar in size and contour. There is no hydronephrosis. Aorta is normal in caliber. Visualized bowel gas pattern is nonobstructive. IMPRESSION: 1. Choledocholithiasis with 5 mm distal common bile duct stone. No significant biliary dilatation. 2. Gallbladder wall thickening likely due to contracted state. Correlate clinically. No visible stones within the gallbladder lumen. 3. Anterior left hepatic lobe cyst measuring up to 6.2 cm. 4. Small pleural effusions. Electronically signed by: Katerin Quintero M.D. 06/03/23 01:47 AM
[2023-06-03] MEDS: PIPERACILLIN/TAZOBACTAM 4.5 GM in DEXTROSE 5% 100 ML IV SCH ×3 (05:29→21:36)
--- NOTE | 2023-06-03 06:56 | Hospitalist Progress Note ---
Date of Service June 03, 2023 Assessment & Plan (1) Total bilirubin, elevated: Plan: painless Jaundice , cholestasis by serology, cyctic liver lesion, previous alcohol use none for 2 years as quit after traumatic seizure. not significant transaminase elevation, does have elevated alk phos, elevted bili mostly direct GI consult, hepatitis serologies are pending AFP is sent CT scan of abdomen and pelvis with IV contrast shows a cystic lesion in the anterior aspect of the left hepatic lobe measuring 6.5 x 4.1 cm, There was also noted cholelithiasis and mild gallbladder wall thickening with gallbladder Ultrasound of gallbladder shows a right hepatic cystic lesion measuring 5.6 x 4.1 x 4.4 cm, No cholelithiasis negative Zamora sign no definite evidence of acute cholecystitis MRCP's suggest this is from distal common bile duct stone scheduled for an ERCP in the afternoon of 06/04 does have leukocytosis continues to be on Zosyn (2) Acute hyponatremia: Plan: Hyponatremia/hypokalemia/hypoosmolality- Looks to be a primary process of polydipsia fluid restrict with some improvement of sodium to 129 continue to follow replete other electrolytes (3) Hypertension: Plan: Hypertension- Continue metoprolol tartrate 50 mg p.o. 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 every 12 hours previous alcohol will have pT/OT once recovers thiamine in 2021 was normal Admission and Anticipated Discharge Date Admission Date: June 01, 2023 Subjective Patient presented with painless jaundice, found to have cystic liver mass, despite ultrasound and CT not showing stones MRCP showed a 5 mm common bile duct stone. Patient for ERCP in the afternoon 06/04 Physical Exam Physical Exam: Patient is jaundiced and icteric Card exam is regular lungs are clear abdomen is with fullness in his right upper quadrant minorly tender Extremities are with trace edema Results & Data Results & Data Vital Signs (Past 12 Hours) Vital Signs Temp Pulse Pulse Resp BP BP Pulse Ox 06/03/23 04:00 98.6 F 84 20 123/68 93 06/02/23 23:58 99.3 F 73 18 118/67 91 06/02/23 22:00 82 06/02/23 21:11 98.8 F 06/02/23 19:57 100.0 F H 95 H 18 117/78 92 O2 Del Method 06/03/23 04:00 Room Air 06/02/23 23:58 Room Air 06/02/23 22:00 06/02/23 21:11 06/02/23 19:57 Room Air Laboratory Results Reviewed CBC reviewed chemistry PG Care Time/CCT Total # of Minutes Spent Total Time Spent with Patient: Total time spent is greater than 50% in coordination of care (as documented) at patient's floor/unit and/or counseling patient: Coding Level of Care Code 21507 SUB INP/OBS CARE 3/50MIN Diagnoses Total bilirubin, elevated R17 Acute hyponatremia E87.1 Hypertension I10 Cerebellar ataxia G11.9
[2023-06-03] MEDS: PANTOprazole 40 MG TAB PO SCH ×2 (08:28→20:49)
[2023-06-03] MEDS: levETIRAcetam 500 MG TAB PO SCH ×2 (08:28→20:49)
[2023-06-03] MEDS: METOPROLOL TARTRATE 50 MG TAB PO SCH ×2 (08:28→20:49)
[2023-06-03 08:58] LABS: Basophils # (auto) 0.06 K/uL (0.00-0.20); Basophils % (auto) 0.3 %; Eosinophils # (auto) 0.22 K/uL (0.00-0.50); Eosinophils % (auto) 1.2 %; Hematocrit (blood only) 33.7 % (42.0-52.0); Immature Granulocytes # (auto) 0.28 K/uL (0.01-0.20); Immature Granulocytes % (auto) 1.5 %; Lymphocytes # (auto) 1.87 K/uL (1.20-3.40); Lymphocytes % (auto) 10.1 %; Mean Corpuscular Hemoglobin 29.8 pg (25.0-34.0); Mean Corpuscular Hgb Conc 35.6 g/dL (32.0-36.0); Mean Corpuscular Volume 83.6 fL (80.0-100.0); Mean Platelet Volume 9.9 fL (9.4-12.4); Monocytes # (auto) 1.26 K/uL (0.11-0.59); Monocytes % (auto) 6.8 %; Neutrophils # (auto) 14.83 K/uL (1.40-6.50); Neutrophils % (auto) 80.1 %; Platelet Count 459 K/uL (130-400); RDW Coefficient of Variation 13.6 % (11.5-14.5); RDW Standard Deviation 41.4 fL (36.4-46.3); Red Blood Count 4.03 M/uL (4.70-6.10); White Blood Count 18.52 K/ul (4.8-10.8)
[2023-06-03 09:37] LABS: INR 1.1 (0.9-1.1); Partial Thromboplastin Ratio 1.2; Partial Thromboplastin Time 32.5 Seconds (21.0-31.0); Prothrombin Time 11.9 Seconds (9.0-12.0)
[2023-06-03 09:55] LABS: Albumin Globulin Ratio 0.8 (0.9-2); Albumin Level 2.9 gm/dl (3.4-5.0); BUN Creatinine Ratio 8.4 (10-20); Bilirubin,Total 4.3 mg/dl (0.2-1.0); Calcium 8.2 mg/dl (8.6-10.3); Creatinine Clr Calc Pharmacy 92.5 ml/min; Est GFR (African American) 98.3 ml/min; Est GFR (Non-African American) 84.9 ml/min; Globulin 3.7 gm/dl (2.5-4.0); Magnesium 1.9 mg/dl (1.7-2.4); Potassium 3.5 mmol/L (3.5-5.1); Total Protein 6.6 gm/dl (6.0-8.3)
[2023-06-03] MEDS ORDERED: INDOMETHACIN 50 MG SUPP PR ONE ×2 (10:05→14:25)
--- NOTE | 2023-06-03 10:12 | Gastroenterology Progress Note ---
Date of Service June 03, 2023 Assessment & Plan (1) Abdominal pain: (2) Choledocholithiasis: (3) Elevated LFTs: Plan: Pt is a 62 yo male admitted w symptoms of upper abd pain, jaundice, noted to have elevated LFTs. Abd imaging studies including CT, US, MRCP showed 6 cm right-sided liver cyst and choledocholithiasis. - Keep NPO - IVF hydration - IV antibiotics - ERCP by Dr. Allyson Salazar in OR today - Trend LFTs - No further f/u for R sided liver cyst unless pt having abd pain/pressure symptoms Admission and Anticipated Discharge Date Admission Date: June 01, 2023 Supervising Physician Co-Signing Physician Notes I saw and evaluated the patient. We were consulted for evaluation of choledocholithiasis in the setting of an elevated white blood cell count and jaundice. Given the scenario 1 possible explanation is a sending cholangitis. I would recommend further treatment with ERCP today. We discussed risks and benefits of the procedure with the patient to include bleeding infection perforation pain failed biliary cannulation and need for follow-up studies. The patient will also need to have an evaluation by general surgery to discuss timing of cholecystectomy. Subjective MRCP + for choledocholithiasis. Pt denies abd pain, n/v. Review of Systems Review of Systems: All systems reviewed & are unremarkable except as noted in HPI & below Physical Exam Constitutional: WD/WN, vitals as above well groomed, cooperative and comfortable Eyes: PERRL, conjunctivae normal, anicteric sclerae ENMT: external ear and nose normal, oropharynx normal Respiratory: normal respiratory effort, lungs clear to auscultation Cardiovascular: RRR, no murmur, no edema Gastrointestinal (Abdomen): normal bowel sounds, soft, nontender, no hepatosplenomegaly Skin: no rashes, warm and dry + jaundice Psychiatric: A+Ox3, euthymic affect Lymphatic: no lymphedema Results & Data Vital Signs (Past 12 Hours) Vital Signs Temp Pulse Pulse Resp BP BP Pulse Ox 06/03/23 07:29 37.2 C 76 18 111/71 92 06/03/23 07:03 73 06/03/23 04:00 37.0 C 84 20 123/68 93 06/02/23 23:58 37.4 C 73 18 118/67 91 O2 Del Method 06/03/23 07:29 Room Air 06/03/23 07:03 06/03/23 04:00 Room Air 06/02/23 23:58 Room Air Laboratory Results Laboratory Results - last 24 hr 06/03/23 06/03/23 06/03/23 08:24 08:24 08:24 WBC 18.52 H RBC 4.03 L Hgb 12.0 L Hct 33.7 L MCV 83.6 MCH 29.8 MCHC 35.6 RDW Std Deviation 41.4 RDW Coeff of Odin 13.6 Plt Count 459 H MPV 9.9 Immature Gran % (Auto) 1.5 Neut % (Auto) 80.1 Lymph % (Auto) 10.1 [place] % (Auto) 6.8 Eos % (Auto) 1.2 Baso % (Auto) 0.3 Neut # (Auto) 14.83 H Lymph # (Auto) 1.87 [place] # (Auto) 1.26 H Eos # (Auto) 0.22 Baso # (Auto) 0.06 Immature Gran # (Auto) 0.28 H PT INR APTT PTT Ratio Sodium 129 L Potassium 3.5 D Chloride 91 L Carbon Dioxide 32 Anion Gap 6 BUN 8 Creatinine 0.95 Est Cr Clr Drug Dosing 92.5 Est GFR ( Amer) 98.3 Est GFR (Non-Af Amer) 84.9 BUN/Creatinine Ratio 8.4 L Glucose 93 Calcium 8.2 L Magnesium 1.9 Total Bilirubin 4.3 H AST 36 ALT 32 Alkaline Phosphatase 387 H Total Protein 6.6 Albumin 2.9 L Globulin 3.7 Albumin/Globulin Ratio 0.8 L Tumor Marker AFP Pending First/Repeat Specimen Cancelled Gestational Age Cancelled Estimated Delivery Date Cancelled Est Date Determined By Cancelled Maternal Race Cancelled Maternal Weight Cancelled Maternal Diabetes Cancelled Number of Fetuses Cancelled Maternal Scrn Egg Donor Cancelled Donor Age or Cancelled AFP Triple Screen Cancelled Prev Trisomy 21 Preg Cancelled Maternal Serum AFP Cancelled AFP MoM Cancelled Maternal AFP Interp Cancelled Family History NTD Cancelled NTD Risk Assessment Cancelled Maternal Scrn Comment Cancelled 06/03/23 08:25 WBC RBC Hgb Hct MCV MCH MCHC RDW Std Deviation RDW Coeff of Odin Plt Count MPV Immature Gran % (Auto) Neut % (Auto) Lymph % (Auto) [place] % (Auto) Eos % (Auto) Baso % (Auto) Neut # (Auto) Lymph # (Auto) [place] # (Auto) Eos # (Auto) Baso # (Auto) Immature Gran # (Auto) PT 11.9 INR 1.1 APTT 32.5 H PTT Ratio 1.2 Sodium Potassium Chloride Carbon Dioxide Anion Gap BUN Creatinine Est Cr Clr Drug Dosing Est GFR ( Amer) Est GFR (Non-Af Amer) BUN/Creatinine Ratio Glucose Calcium Magnesium Total Bilirubin AST ALT Alkaline Phosphatase Total Protein Albumin Globulin Albumin/Globulin Ratio Tumor Marker AFP First/Repeat Specimen Gestational Age Estimated Delivery Date Est Date Determined By Maternal Race Maternal Weight Maternal Diabetes Number of Fetuses Maternal Scrn Egg Donor Donor Age or AFP Triple Screen Prev Trisomy 21 Preg Maternal Serum AFP AFP MoM Maternal AFP Interp Family History NTD NTD Risk Assessment Maternal Scrn Comment Diagnostic Findings Exam(s): MRI MRCP EXAM: MR Abdomen Without Intravenous Contrast, MRCP Protocol CLINICAL HISTORY: Reason for exam: cystic liver lesion is it compressing ducts. TECHNIQUE: Multiplanar magnetic resonance images of the abdomen without intravenous contrast using MRCP protocol. COMPARISON: CT abdomen and pelvis, 06/01/23 FINDINGS: Heart size is normal. Pericardial effusion measures 5 mm. There are small bilateral layering pleural effusions. There is a simple-appearing cyst in the anterior left hepatic lobe measuring 4.3 cm AP by 6.2 cm transverse by 4.5 cm craniocaudal. No additional focal liver lesions are visualized. There is gallbladder wall thickening, likely due to contracted state. Common bile duct measures 6 mm, normal for patient age. There is choledocholithiasis with 5 mm stone at the distal common bile duct. Spleen, pancreas, and adrenal glands are unremarkable. Simple exophytic cyst of the right kidney measures 2.8 cm; no further follow-up is required. Additional simple parapelvic right kidney cyst measures 2.3 cm; no further follow-up is required. Kidneys are similar in size and contour. There is no hydronephrosis. Aorta is normal in caliber. Visualized bowel gas pattern is nonobstructive. IMPRESSION: 1. Choledocholithiasis with 5 mm distal common bile duct stone. No significant biliary dilatation. 2. Gallbladder wall thickening likely due to contracted state. Correlate clinically. No visible stones within the gallbladder lumen. 3. Anterior left hepatic lobe cyst measuring up to 6.2 cm. 4. Small pleural effusions.
--- NOTE | 2023-06-03 15:10 | History & Physical Bridge Note ---
Date of Service June 03, 2023 History & Physical Bridge Note I have examined the patient, reviewed the History & Physical and in the interval since the performance of the History & Physical I have noted the following changes of clinical significance: no changes noted. ERCP planned for treatment of choledocholithiasis and suspected cholangitis. We have discussed the risks to include bleeding, infection, perforation, pain, pancreatitis, and the need for follow-up studies.
[2023-06-03] MEDS ORDERED: ePHEDrine sulfate 50 MG/ML AMP IV PRN (15:20)
[2023-06-03] MEDS ORDERED: ONDANSETRON INJ 2 MG/ML 2 ML VIAL IV PRN (15:20)
[2023-06-03] MEDS ORDERED: ATROPINE SULFATE 0.1 MG/ML 10ML SYR IV PRN (15:20)
[2023-06-03] MEDS ORDERED: fentaNYL citrate PF 100 MCG/2 ML VIAL IV PRN (15:20)
--- NOTE | 2023-06-03 15:20 | Anesthesiology Consultation ---
Date of Service June 03, 2023 Assessment & Plan (1) Encounter for pre-operative examination: Chart Review Chart Review: Acceptable Risk for Surgery and Patient NOT seen in Pre Admission Testing Consults Requested none History Surgery Operation Date: 06/03/23 13:15 Proposed Procedures p Endoscopic Retrograde Cholangiopancreatogram - Allyson Salazar DO Height/Weight Height: 6 ft 2 in Weight: 83.2 kg Allergies Allergy/AdvReac Type Severity Reaction Status Date / Time No Known Allergies Allergy Verified 06/01/23 20:06 Medications Home Medications Medication Instructions Recorded Confirmed Last Taken cholecalciferol (vitamin D3) 50 50 mcg PO DAILY #30 caps 07/20/20 06/01/23 04/01/21 mcg (2,000 unit) capsule aspirin 81 mg tablet,delayed 81 mg PO QAM #30 tabs 08/30/21 06/01/23 Unknown release levetiracetam 500 mg tablet 1,500 mg PO Q12H #540 tabs 05/31/22 06/01/23 Unknown doxazosin 2 mg tablet 2 mg PO DAILY #90 tabs 07/22/22 06/01/23 Unknown metoprolol tartrate 50 mg tablet 50 mg PO Q12H #180 tabs 07/22/22 06/01/23 Unknown folic acid 1 mg tablet 1 mg PO DAILY #90 tabs 07/26/22 06/01/23 Unknown atorvastatin 40 mg tablet 40 mg PO QAM #90 tabs 12/27/22 06/01/23 Unknown duloxetine 30 mg capsule,delayed 30 mg PO DAILY #90 caps 03/07/23 06/01/23 Unknown release amlodipine 10 mg tablet 20 mg PO DAILY 06/01/23 06/01/23 Unknown pantoprazole 40 mg tablet,delayed 40 mg PO BID 06/01/23 06/01/23 Unknown release Active Medications Generic Name Dose Route Start Last Admin Trade Name Freq PRN Reason Stop Dose Admin Piperacillin Sod/Tazobactam 120 mls @ 30 mls/hr 06/02/23 06:00 06/03/23 13:37 Sod 4.5 gm/ Dextrose IV 06/12/23 05:59 30 mls/hr Q8H VINNY Administration Protocol Levetiracetam 1,500 mg 06/02/23 02:06 06/03/23 08:28 Levetiracetam 500 Mg Tab PO 10/04/23 02:05 1,500 mg Q12 VINNY Administration Metoprolol Tartrate 50 mg 06/02/23 02:06 06/03/23 08:28 Metoprolol Tartrate 50 Mg Tab PO 07/02/23 02:05 50 mg Q12 VINNY Administration Pantoprazole Sodium 40 mg 06/02/23 09:00 06/03/23 08:28 Pantoprazole 40 Mg Tab PO 07/02/23 08:59 40 mg BID VINNY Administration NPO Date Last Intake of Fluids: 06/03/23 Time Last Intake of Fluids: 08:00 Last Intake of Fluids Comment: pudding Past Medical History Medical History Abnormal liver function test Abnormal MRI of head Alcohol withdrawal hallucinosis Alcohol withdrawal seizure PT DENIES Arthritis Closed C4 fracture COVID-19 03/01/22 CVA (cerebral vascular accident) Elevated liver enzymes Fracture of distal fibula Hx of gout Hx of intracranial hemorrhage MARCH 2020>DRUG INDUCED COMA AT [facility]. "HAD A FEEDING TUBE SHORT TERM". PT UNSURE OF DETAILS Hypertension Lyme disease Seizure Seizure MARCH 2020 (FELL AND HIT HEAD>DRUG INDUCED COMA/HOSPITALIZED AT [facility]) FOLLOWS WITH [facility] Sprain of lateral ligament of ankle joint Syncope Temporal bone fracture Past Family History Family History Other No family history of adverse response to anesthesia No significant family history Denies family history of Prostate cancer Breast cancer Colorectal cancer Past Surgical History Surgical History H/O wrist surgery RT Hx of wisdom tooth extraction Social History Smoking Status: Never smoker tobacco type: smokeless tobacco Do You Dip or Chew Tobacco: Yes (1 can/day) Hx Alcohol Use: Yes Alcohol type: beer alcohol intake frequency: a few times a week Hx Substance Use: No substance use type: does not use Physical Exam Vital Signs Last Vital Signs Temp 99.3 F 06/03/23 15:12 Pulse 72 06/03/23 15:12 Resp 18 06/03/23 15:12 BP 121/78 06/03/23 15:12 Pulse Ox 93 06/03/23 15:12 O2 Del Method Room Air 06/03/23 15:12 Testing Laboratory Results 06/03/23 08:24 06/03/23 08:24 PT 11.9 Seconds (9.0-12.0) 06/03/23 08:25 INR 1.1 (0.9-1.1) 06/03/23 08:25 APTT 32.5 Seconds (21.0-31.0) H 06/03/23 08:25 Urine Color Dark Yellow 06/01/23 19:24 Urine Appearance Clear (Clear) 06/01/23 19:24 Urine pH 6.0 (4.5-7.5) 06/01/23 19:24 Ur Specific Fletcher 1.010 (1.000-1.030) 06/01/23 19:24 Urine Protein Negative (Negative) 06/01/23 19:24 Urine Glucose (UA) Negative (Negative) 06/01/23 19:24 Urine Ketones Negative (Negative) 06/01/23 19:24 Urine Nitrite Positive (Negative) A 06/01/23 19:24 Ur Leukocyte Esterase Negative (Negative) 06/01/23 19:24 Urine WBC (Auto) 1-5 /hpf (0-5) 06/01/23 19:24 Urine RBC (Auto) 0-4 /hpf (0-4) 06/01/23 19:24 U Hyaline Cast (Auto) 0 /lpf (0-5) 06/01/23 19:24 U Epithel Cells (Auto) 0-5 /lpf (0-5) 06/01/23 19:24 Urine Bacteria (Auto) Negative (Negative) 06/01/23 19:24 06/01/23 18:34 Aerobic Blood Culture - Preliminary Blood No growth in Aerobic bottle after 24 hours. Anaerobic Blood Culture - Preliminary No growth in Anaerobic bottle after 24 hours. 06/01/23 18:30 Aerobic Blood Culture - Preliminary Blood No growth in Aerobic bottle after 24 hours. Anaerobic Blood Culture - Preliminary No growth in Anaerobic bottle after 24 hours.
[2023-06-03] MEDS: LACTATED RINGER'S 1,000 ML IV SCH (15:30)
[2023-06-03] MEDS ORDERED: fentaNYL citrate PF 100 MCG/2 ML VIAL ONE (15:32)
[2023-06-03] MEDS ORDERED: GLYCOPYRROLATE 0.2 MG/ML VIAL ONE (16:06)
[2023-06-03] MEDS ORDERED: PROPOFOL IV EMULSION 10 MG/ML 20 ML VIAL IV ONE (16:06)
[2023-06-03] MEDS ORDERED: ePHEDrine sulfate 50 MG/ML AMP ONE (16:06)
[2023-06-03] MEDS ORDERED: LIDOCAINE 2% 2 ML VIAL/AMP(20MG/ML) INFIL ONE (16:06)
--- NOTE | 2023-06-03 17:02 | GI REPORT ---
Patient Name: Sudarshan Rodríguez Procedure Date: 06/03/2023 3:22 PM Date of : 1960 Admit Type: Inpatient Age: 62 Gender: Male Attending MD: Allyson Salazar DO, Procedure: ERCP Providers: Allyson Salazar DO Referring MD: Tesfaye Yee, Taran Mcclain MD Indications: Abdominal pain of suspected biliary origin, Abnormal abdominal MRI, Suspected ascending cholangitis, Jaundice Medicines: General Anesthesia Complications: No immediate complications. Estimated blood loss: Minimal. Estimated Blood Loss: Estimated blood loss was minimal. Procedure: Pre-Anesthesia Assessment: - Prior to the procedure, a History and Physical was performed, and patient medications, allergies and sensitivities were reviewed. The patient's tolerance of previous anesthesia was reviewed. - The risks and benefits of the procedure and the sedation options and risks were discussed with the patient. All questions were answered and informed consent was obtained. - Patient identification and proposed procedure were verified prior to the procedure by the physician, the nurse and the wrapper layer and examiner soft work. The procedure was verified in the pre-procedure area in the procedure room. - Pre-procedure physical examination revealed no contraindications to sedation. - ASA Grade Assessment: III - A patient with severe systemic disease. - After reviewing the risks and benefits, the patient was deemed in satisfactory condition to undergo the procedure in an ambulatory setting. - The anesthesia plan was to use general anesthesia. - Immediately prior to administration of medications, the patient was re-assessed for adequacy to receive sedatives. - The heart rate, respiratory rate, oxygen saturations, blood pressure, adequacy of pulmonary ventilation, and response to care were monitored throughout the procedure. - The physical status of the patient was re-assessed after the procedure. After obtaining informed consent, the scope was passed under direct vision. Throughout the procedure, the patient's blood pressure, pulse, and oxygen saturations were monitored continuously. The Duodenoscope was introduced through the mouth, and advanced to the duodenum and used to inject contrast into the bile duct and ventral pancreatic duct. The patient tolerated the procedure well. The ERCP was technically difficult and complex due to challenging cannulation because of intradiverticular papilla. Successful completion of the procedure was aided by performing the maneuvers documented (below) in this report. The patient tolerated the procedure well. Findings: The retirement actuary film was normal. The esophagus was successfully intubated under direct vision without detailed examination of the pharynx, larynx, and associated structures, and upper GI tract. The upper GI tract was grossly normal. The major papilla was located entirely within a diverticulum. After numerous attempts were made with a sphincterotome and guidewire we could not approach the ampulla. Therefore 2 two hemostatic clips were successfully placed (MR conditional) in the area of the papilla to help bring it into an intraduodenal position. Clip nissan sales consultant: Sandbox. The ventral pancreatic duct was inadvertently cannulated with the CleverCut distal wire sphincterotome and 0.025 in Angled Acrobat 2 without any complications. Wire was left in place to aid in biliary cannulation and later place a prophylactic pancreatic stent. The bile duct was deeply cannulated with the short-nosed traction sphincterotome and 0.025 in Visiglide guidewire. Contrast was injected. I personally interpreted the bile duct images. Contrast extended to the hepatic ducts. The lower third of the main bile duct and middle third of the main bile duct contained filling defect(s) thought to be a stone and sludge. Biliary sphincterotomy was made with a monofilament CleverCut distal wire sphincterotome using ERBE electrocautery. There was no post-sphincterotomy bleeding. To discover objects, the biliary tree was swept with a 15 mm balloon starting at the bifurcation. Two darkly pigmented stones were removed. No stones remained. Pus was also swept from the duct. One 5 Fr by 7 cm pancreatic stent with a full external pigtail and no internal flaps was placed 7 cm into the ventral pancreatic duct. Clear fluid flowed through the stent. The stent was in good position. One 10 Fr by 8 cm biliary stent with a single external flap and a single internal flap was placed 7.5 cm into the common bile duct. Bile flowed through the stent. The stent was in good position. The endoscope was withdrawn from the patient. Indomethacin 100 mg was given via suppository to decrease the risk of post-ERCP pancreatitis (PEP). Impression: - The major papilla was located entirely within a diverticulum. - Choledocholithiasis and cholangitis was found. Complete removal was accomplished by biliary sphincterotomy and balloon extraction. - One prophylactic pancreatic stent was placed into the ventral pancreatic duct. - One biliary stent was placed into the common bile duct. - Indomethacin given to decrease risk of post-ERCP pancreatitis. Recommendation: - Avoid aspirin and nonsteroidal anti-inflammatory medicines for 1 week. - Clear liquid diet today. - Repeat ERCP in 6 weeks to remove stent. - Refer to a surgeon to discuss timing of cholecystectomy. - Use broad spectrum antibiotics for 2 weeks. Allyson Salazar D.O. Allyson Salazar, DO 06/03/2023 5:01:41 PM This report has been signed electronically. Note Initiated On: 06/03/2023 3:22 PM Number of Addenda: 0 I attest to the content of the Intraoperative Record and orders documented therein, exceptions below {[id number]}
--- NOTE | 2023-06-03 17:04 | Post Operative Brief Note ---
Immediate Post Op Note v1 Date of Surgery June 03, 2023 Pre & Post Diagnosis Operation Date: 06/03/23 13:15 Pre-Op Diagnosis: JAUNDICE,CONFUSION I identified the patient and participated in the time-out.: Yes Procedure Operation Date: 06/03/23 13:15 ERCP with gallstone extraction, biliary sphincterotomy and placement of a biliary and pancreatic stent. Surgeon Allyson Salazar, Winding Operator none Estimated Blood Loss 0 Findings See Below (Cholangitis, choledocholithiasis)
--- NOTE | 2023-06-03 17:06 | Communication Note ---
Date of Service: June 03, 2023 The patient underwent ERCP today for choledocholithiasis and suspected ascending cholangitis. The ERCP was quite difficult due to a periampullary diverticulum. Several gallstones were removed in addition to pus from the prophylactic pancreatic stent was placed and a biliary stent was placed. Recommendations Continue IV hydration Continue broad-spectrum antibiotic coverage for total of 2 weeks Avoid NSAIDs for 1 week please Cholecystectomy per general surgery Repeat ERCP in 6 to 8 weeks for bile duct stent removal after gallbladder surgery is performed
--- NOTE | 2023-06-03 17:35 | Anesthesiology Progress Note ---
Date of Service June 03, 2023 Anesthesia Post Procedure Vital Signs Vital Signs: Temp Pulse Pulse Pulse Resp BP BP 06/03/23 17:30 70 16 108/72 06/03/23 16:00 64 06/03/23 17:20 98.2 F 77 18 119/72 06/03/23 17:10 76 20 112/74 06/03/23 17:00 97.5 F L 75 19 110/75 06/03/23 15:12 99.3 F 72 18 121/78 06/03/23 14:59 98.2 F 73 18 141/80 H 06/03/23 11:18 98.4 F 61 18 95/58 L 06/03/23 07:29 99.0 F 76 18 111/71 06/03/23 07:03 73 06/03/23 04:00 98.6 F 84 20 123/68 06/02/23 23:58 99.3 F 73 18 118/67 06/02/23 22:00 82 06/02/23 21:11 98.8 F 06/02/23 19:57 100.0 F H 95 H 18 117/78 Pulse Ox O2 Del Method O2 Flow Rate 06/03/23 17:30 96 Room Air 06/03/23 16:00 06/03/23 17:20 95 Room Air 06/03/23 17:10 97 Room Air 06/03/23 17:00 96 Oxymask 7 06/03/23 15:12 93 Room Air 06/03/23 14:59 92 Room Air 06/03/23 11:18 94 Room Air 06/03/23 07:29 92 Room Air 06/03/23 07:03 06/03/23 04:00 93 Room Air 06/02/23 23:58 91 Room Air 06/02/23 22:00 06/02/23 21:11 06/02/23 19:57 92 Room Air Transfer of Care Handoff Completed per policy Notes Mental Status: alert / awake / arousable and participated in evaluation Patient Amnestic to Procedure: Yes Nausea / Vomiting: adequately controlled Pain: adequately controlled Airway Patency, RR, SpO2: stable & adequate BP & HR: stable & adequate Hydration State: stable & adequate Anesthetic Complications: no major complications apparent and Pt Satisfied with anesthetic care
--- NOTE | 2023-06-03 18:08 | Fluoroscopy Report ---
[place] ERCP biliary ductal CLINICAL HISTORY: for ercpacute upper abdominal pain COMPARISON STUDY: CT 06/01/2023 FLUOROSCOPY TIME: 75.9 seconds FLUOROSCOPY IMAGES: 12 EXPOSURE DOSE: 24.42 mGy FINDINGS: Endoscope within the duodenum. Endoscopy clips within the duodenum are noted. There is karina ulation of the common bile duct with retrograde injection of contrast and subsequent balloon sweep. A pparent intraluminal filling defects in the biliary tree. Subsequent images demonstrate placement of a common bile duct stent which appears to be in satisfactory positioning. Additionally, there is a pa ncreatic stent which appears to be in satisfactory positioning. IMPRESSION: Fluoroscopic assistance as above. ACT 112: Negative or not required by law. Electronically signed by: Bryan Spencer M.D. 06/03/2023 6:05 PM
[2023-06-04] MEDS: PIPERACILLIN/TAZOBACTAM 4.5 GM in DEXTROSE 5% 100 ML IV SCH ×3 (06:22→21:00)
[2023-06-04 08:42] LABS: Basophils # (auto) 0.02 K/uL (0.00-0.20); Basophils % (auto) 0.1 %; Hematocrit (blood only) 34.6 % (42.0-52.0); Hemoglobin 12.2 g/dl (14.0-18.0); Immature Granulocytes # (auto) 0.11 K/uL (0.01-0.20); Immature Granulocytes % (auto) 0.8 %; Lymphocytes # (auto) 1.26 K/uL (1.20-3.40); Lymphocytes % (auto) 9.4 %; Mean Corpuscular Hemoglobin 29.5 pg (25.0-34.0); Mean Corpuscular Hgb Conc 35.3 g/dL (32.0-36.0); Mean Corpuscular Volume 83.6 fL (80.0-100.0); Mean Platelet Volume 9.5 fL (9.4-12.4); Monocytes # (auto) 0.17 K/uL (0.11-0.59); Monocytes % (auto) 1.3 %; Neutrophils # (auto) 11.81 K/uL (1.40-6.50); Neutrophils % (auto) 88.4 %; Platelet Count 498 K/uL (130-400); RDW Coefficient of Variation 13.8 % (11.5-14.5); RDW Standard Deviation 42.4 fL (36.4-46.3); Red Blood Count 4.14 M/uL (4.70-6.10); White Blood Count 13.37 K/ul (4.8-10.8)
[2023-06-04 08:51] LABS: INR 1.1 (0.9-1.1); Partial Thromboplastin Ratio 1.1; Prothrombin Time 11.6 Seconds (9.0-12.0)
[2023-06-04 09:15] LABS: Albumin Globulin Ratio 0.7 (0.9-2); Albumin Level 3.1 gm/dl (3.4-5.0); BUN Creatinine Ratio 11.3 (10-20); Bilirubin,Total 2.7 mg/dl (0.2-1.0); Calcium 8.5 mg/dl (8.6-10.3); Creatinine Clr Calc Pharmacy 108.3 ml/min; Est GFR (African American) 110.2 ml/min; Est GFR (Non-African American) 95.1 ml/min; Globulin 4.2 gm/dl (2.5-4.0); Magnesium 2.3 mg/dl (1.7-2.4); Potassium 3.5 mmol/L (3.5-5.1); Total Protein 7.3 gm/dl (6.0-8.3)
[2023-06-04] MEDS: METOPROLOL TARTRATE 50 MG TAB PO SCH ×2 (09:18→20:56)
[2023-06-04] MEDS: PANTOprazole 40 MG TAB PO SCH ×2 (09:18→20:57)
[2023-06-04] MEDS: levETIRAcetam 500 MG TAB PO SCH ×2 (09:19→20:56)
[2023-06-04 09:52] LABS: HBSAG NON-REACTIVE (NON-REACTIVE); Hepatitis A Antibody IgM NON-REACTIVE (NON-REACTIVE); Hepatitis B Core Antibody IgM NON-REACTIVE (NON-REACTIVE)
--- NOTE | 2023-06-04 11:51 | Gastroenterology Progress Note ---
Date of Service June 04, 2023 Assessment & Plan (1) Abdominal pain: (2) Choledocholithiasis: (3) Elevated LFTs: Plan: Pt is a 62 yo male admitted w symptoms of upper abd pain, jaundice, noted to have elevated LFTs. Abd imaging studies including CT, US, MRCP showed 6 cm right-sided liver cyst and choledocholithiasis. ERCP performed 06/03/2023 - choledocholithiasis found, removed, also noted ascending cholangitis. Pancreatic and biliary stents placed. - Surgery consulted to eval for cholecystectomy - Advance diet as tolerated - IVF hydration - IV antibiotics, continue antibx coverage for 2 weeks total - Avoid NSAIDs or high dose ASA for 1 week after sphincterectomy - Repeat ERCP in 6-8 weeks time to remove biliary stent - Trend LFTs - No further f/u for R sided liver cyst unless pt having abd pain/pressure symptoms - GI to sign off; pls recall prn Admission and Anticipated Discharge Date Admission Date: June 01, 2023 Supervising Physician Co-Signing Physician Notes I personally saw and evaluated the patient on 06/04/2023 with PHILIP Chapman and agree with her findings and plan of care. 62 y/o M admitted with abdominal pain, jaundice, and abnormal LFTs found to have choledocholithiasis on imaging. he underwent ERCP 06/03 with choledocholithiasis removal and also noted to have cholangitis. he had 2 stents placed. Today his LFTs have significantly improved and are down trending. He denies any abdominal pain or symptoms and feels well. He reports he is getting a cholecystectomy ab rrow. On exam he has very mild scleral icterus. Abdomen is soft and non-tender. He will need a repeat ERCP in 6-8 weeks for stent removal which he will arrange as outpatient. Continue IV abx while admitted and switch to cipro/flagyl on discharge for a total of 2 weeks of antibiotic coverage. Avoid NSAIDS or high dose asa for 1 week after sphincterotomy. Trend daily LFTs while admitted. Agree with cholecystectomy prior to discharge. GI will sign off but please call back with questions. Rehana Encinas, DO Gastroenterology and Hepatology Subjective Pt denies abd pain, n/v, wants to eat solid foods. LFTs trending down Review of Systems Review of Systems: All systems reviewed & are unremarkable except as noted in HPI & below Physical Exam Constitutional: WD/WN, vitals as above well groomed, cooperative and comfortable Eyes: PERRL, conjunctivae normal, anicteric sclerae ENMT: external ear and nose normal, oropharynx normal Respiratory: normal respiratory effort, lungs clear to auscultation Cardiovascular: RRR, no murmur, no edema Gastrointestinal (Abdomen): normal bowel sounds, soft, nontender, no hepatosplenomegaly Skin: no rashes, warm and dry Psychiatric: A+Ox3, euthymic affect Lymphatic: no lymphedema Results & Data Vital Signs (Past 12 Hours) Vital Signs Temp Pulse Pulse Resp BP BP Pulse Ox 06/04/23 11:37 36.9 C 67 12 121/74 93 06/04/23 07:46 36.8 C 72 14 118/74 93 06/04/23 07:38 60 06/04/23 04:00 36.2 C L 58 L 18 96/62 L 95 O2 Del Method 06/04/23 11:37 Room Air 06/04/23 07:46 Room Air 06/04/23 07:38 06/04/23 04:00 Room Air
--- NOTE | 2023-06-04 12:59 | Surgery Consultation ---
Date of Consultation June 04, 2023 Assessment & Plan (1) Choledocholithiasis: ERCP with recent choledocholithiasis and cholangitis, will plan for cholecystectomy during this hospital stay plan for laparoscopic cholecystectomy with possible cholangiogram tomorrow in the OR risks discussed to include but not limited to bleeding, infection, retained stone, bile leak, open surgery, damage to surrounding structures including bile duct, need for future or more extensive surgery, failure to treat symptoms, and risks of anesthesia. Patient may have regular diet today per GI, make n.p.o. 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 Surgery has been consulted for cholecystectomy. He denied any right upper quadrant pain but did notice some fullness and epigastric discomfort after eating a hamburger prior to arrival. He has not had symptoms like this before. He had multiple imaging studies that were somewhat inconclusive, and then an MRCP that showed choledocholithiasis. He did have an elevated bilirubin prior to the ERCP which is now downtrending. The ERCP was performed yesterday and he has a biliary stent in place. He is not on any blood thinners on a regular basis. History of TBI and cerebellar ataxia along with alcohol use. No prior abdominal surgeries. Allergies Allergy/AdvReac Type Severity Reaction Status Date / Time No Known Allergies Allergy Verified 06/01/23 20:06 Home Medications Medication Instructions Recorded Confirmed Type cholecalciferol (vitamin D3) 50 50 mcg PO DAILY #30 caps 07/20/20 06/01/23 Rx mcg (2,000 unit) capsule aspirin 81 mg tablet,delayed 81 mg PO QAM #30 tabs 08/30/21 06/01/23 Rx release levetiracetam 500 mg tablet 1,500 mg PO Q12H #540 tabs 05/31/22 06/01/23 Rx doxazosin 2 mg tablet 2 mg PO DAILY #90 tabs 07/22/22 06/01/23 Rx metoprolol tartrate 50 mg tablet 50 mg PO Q12H #180 tabs 07/22/22 06/01/23 Rx folic acid 1 mg tablet 1 mg PO DAILY #90 tabs 07/26/22 06/01/23 Rx atorvastatin 40 mg tablet 40 mg PO QAM #90 tabs 12/27/22 06/01/23 Rx duloxetine 30 mg capsule,delayed 30 mg PO DAILY #90 caps 03/07/23 06/01/23 Rx release amlodipine 10 mg tablet 20 mg PO DAILY 06/01/23 06/01/23 History pantoprazole 40 mg tablet,delayed 40 mg PO BID 06/01/23 06/01/23 History release Patient History Medical History Abnormal liver function test Abnormal MRI of head Alcohol withdrawal hallucinosis Alcohol withdrawal seizure PT DENIES Arthritis Closed C4 fracture COVID-19 03/01/22 CVA (cerebral vascular accident) Elevated liver enzymes Fracture of distal fibula Hx of gout Hx of intracranial hemorrhage MARCH 2020>DRUG INDUCED COMA AT [place]. "HAD A FEEDING TUBE SHORT TERM". PT UNSURE OF DETAILS Hypertension Lyme disease Seizure Seizure MARCH 2020 (FELL AND HIT HEAD>DRUG INDUCED COMA/HOSPITALIZED AT [facility]) FOLLOWS WITH [facility] Sprain of lateral ligament of ankle joint Syncope Temporal bone fracture Surgical History H/O wrist surgery RT Hx of wisdom tooth extraction Family History Other No family history of adverse response to anesthesia No significant family history Denies family history of Prostate cancer Breast cancer Colorectal cancer Social History Smoking Status: Never smoker Tobacco Type: Smokeless Tobacco (Dip or Chew) Second Hand Exposure: No; Do You Dip or Chew Tobacco: Yes (1 can/day); Hx Alcohol Use: Yes Alcohol type: beer Hx Substance Use: No Preferred Language: Guyanese Communication Ability: Effective Office Coordinator Receptionist Required: No Beliefs That Will Affect Care: None marital status: Current Living Situation: Family Current Living Situation Comment: Living with , daughter, son-in-law, grandchildren, nephew Feels Safe at Home: Yes Diet: regular caffeine: Yes Dental Care, Regularly: No Assistive Devices: Glasses Review of Systems Review of Systems: All systems reviewed & are unremarkable except as noted in HPI & below Physical Exam Constitutional: WD/WN, vitals as above Respiratory: normal respiratory effort, lungs clear to auscultation Cardiovascular: RRR, no murmur, no edema Gastrointestinal (Abdomen): normal bowel sounds, soft, nontender, no hepatosplenomegaly Results & Data Vital Signs (Past 12 Hours) Vital Signs Temp Pulse Pulse Resp BP BP Pulse Ox 06/04/23 11:37 36.9 C 67 12 121/74 93 06/04/23 07:46 36.8 C 72 14 118/74 93 06/04/23 07:38 60 06/04/23 04:00 36.2 C L 58 L 18 96/62 L 95 O2 Del Method 06/04/23 11:37 Room Air 06/04/23 07:46 Room Air 06/04/23 07:38 06/04/23 04:00 Room Air Laboratory Results Laboratory Results - last 24 hr 06/01/23 06/03/23 06/04/23 18:30 08:24 08:17 WBC 13.37 H RBC 4.14 L Hgb 12.2 L Hct 34.6 L MCV 83.6 MCH 29.5 MCHC 35.3 RDW Std Deviation 42.4 RDW Coeff of Odin 13.8 Plt Count 498 H MPV 9.5 Immature Gran % (Auto) 0.8 Neut % (Auto) 88.4 Lymph % (Auto) 9.4 [place] % (Auto) 1.3 Eos % (Auto) 0.0 Baso % (Auto) 0.1 Neut # (Auto) 11.81 H Lymph # (Auto) 1.26 [place] # (Auto) 0.17 Eos # (Auto) 0.00 Baso # (Auto) 0.02 Immature Gran # (Auto) 0.11 PT INR APTT PTT Ratio Sodium Potassium Chloride Carbon Dioxide Anion Gap BUN Creatinine Est Cr Clr Drug Dosing Est GFR ( Amer) Est GFR (Non-Af Amer) BUN/Creatinine Ratio Glucose Calcium Magnesium Total Bilirubin AST ALT Alkaline Phosphatase Total Protein Albumin Globulin Albumin/Globulin Ratio Tumor Marker AFP 1.7 Hepatitis A IgM Ab NON-REACTIVE Hep Bs Antigen NON-REACTIVE Hep Bs Ag Confirmation TNP Hep B Core IgM Ab NON-REACTIVE Hepatitis C Ab (EIA) NON-REACTIVE First/Repeat Specimen Cancelled Gestational Age Cancelled Estimated Delivery Date Cancelled Est Date Determined By Cancelled Maternal Race Cancelled Maternal Weight Cancelled Maternal Diabetes Cancelled Number of Fetuses Cancelled Maternal Scrn Egg Donor Cancelled Donor Age or Cancelled AFP Triple Screen Cancelled Prev Trisomy 21 Preg Cancelled Maternal Serum AFP Cancelled AFP MoM Cancelled Maternal AFP Interp Cancelled Family History NTD Cancelled NTD Risk Assessment Cancelled Maternal Scrn Comment Cancelled 06/04/23 06/04/23 08:17 08:17 WBC RBC Hgb Hct MCV MCH MCHC RDW Std Deviation RDW Coeff of Odin Plt Count MPV Immature Gran % (Auto) Neut % (Auto) Lymph % (Auto) [place] % (Auto) Eos % (Auto) Baso % (Auto) Neut # (Auto) Lymph # (Auto) [place] # (Auto) Eos # (Auto) Baso # (Auto) Immature Gran # (Auto) PT 11.6 INR 1.1 APTT 32.0 H PTT Ratio 1.1 Sodium 132 L Potassium 3.5 Chloride 93 L Carbon Dioxide 31 Anion Gap 8 BUN 9 Creatinine 0.80 Est Cr Clr Drug Dosing 108.3 Est GFR ( Amer) 110.2 Est GFR (Non-Af Amer) 95.1 BUN/Creatinine Ratio 11.3 Glucose 145 H Calcium 8.5 L Magnesium 2.3 Total Bilirubin 2.7 H AST 23 ALT 26 Alkaline Phosphatase 343 H Total Protein 7.3 Albumin 3.1 L Globulin 4.2 H Albumin/Globulin Ratio 0.7 L Tumor Marker AFP Hepatitis A IgM Ab Hep Bs Antigen Hep Bs Ag Confirmation Hep B Core IgM Ab Hepatitis C Ab (EIA) First/Repeat Specimen Gestational Age Estimated Delivery Date Est Date Determined By Maternal Race Maternal Weight Maternal Diabetes Number of Fetuses Maternal Scrn Egg Donor Donor Age or AFP Triple Screen Prev Trisomy 21 Preg Maternal Serum AFP AFP MoM Maternal AFP Interp Family History NTD NTD Risk Assessment Maternal Scrn Comment Diagnostic Findings Exam(s): MRI MRCP EXAM: MR Abdomen Without Intravenous Contrast, MRCP Protocol CLINICAL HISTORY: Reason for exam: cystic liver lesion is it compressing ducts. TECHNIQUE: Multiplanar magnetic resonance images of the abdomen without intravenous contrast using MRCP protocol. COMPARISON: CT abdomen and pelvis, 06/01/23 FINDINGS: Heart size is normal. Pericardial effusion measures 5 mm. There are small bilateral layering pleural effusions. There is a simple-appearing cyst in the anterior left hepatic lobe measuring 4.3 cm AP by 6.2 cm transverse by 4.5 cm craniocaudal. No additional focal liver lesions are visualized. There is gallbladder wall thickening, likely due to contracted state. Common bile duct measures 6 mm, normal for patient age. There is choledocholithiasis with 5 mm stone at the distal common bile duct. Spleen, pancreas, and adrenal glands are unremarkable. Simple exophytic cyst of the right kidney measures 2.8 cm; no further follow-up is required. Additional simple parapelvic right kidney cyst measures 2.3 cm; no further follow-up is required. Kidneys are similar in size and contour. There is no hydronephrosis. Aorta is normal in caliber. Visualized bowel gas pattern is nonobstructive. IMPRESSION: 1. Choledocholithiasis with 5 mm distal common bile duct stone. No significant biliary dilatation. 2. Gallbladder wall thickening likely due to contracted state. Correlate clinically. No visible stones within the gallbladder lumen. 3. Anterior left hepatic lobe cyst measuring up to 6.2 cm. 4. Small pleural effusions. 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
[2023-06-04] MEDS: LACTATED RINGER'S 1,000 ML IV SCH (15:19)
--- NOTE | 2023-06-04 18:42 | Hospitalist Progress Note ---
Date of Service June 04, 2023 Assessment & Plan (1) Total bilirubin, elevated: Plan: painless Jaundice , cholestasis by serology, cyctic liver lesion, previous alcohol use none for 2 years as quit after traumatic seizure. CT scan of abdomen and pelvis with IV contrast shows a cystic lesion in the anterior aspect of the left hepatic lobe measuring 6.5 x 4.1 cm, There was also noted cholelithiasis and mild gallbladder wall thickening Ultrasound of gallbladder shows a right hepatic cystic lesion measuring 5.6 x 4.1 x 4.4 cm, MRCP's suggest this is from distal common bile duct stone scheduled ERCP in the afternoon of 06/04, 2 stones removed, sphincterotomy, performed, for cholecystectomy 06/05 AFP is sent does have leukocytosis continues to be on Zosyn (2) Acute hyponatremia: Plan: Hyponatremia/hypokalemia/hypoosmolality- Looks to be a primary process of polydipsia fluid restrict with some improvement of sodium to 129 continue to follow replete other electrolytes (3) Hypertension: Plan: Hypertension- Continue metoprolol tartrate 50 mg p.o. 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 every 12 hours previous alcohol will have pT/OT once recovers thiamine in 2021 was normal Admission and Anticipated Discharge Date Admission Date: June 01, 2023 Subjective Patient feeling much better he is tolerating liquid diet. He was consented for laparoscopic cholecystectomy on 06/05 Physical Exam Physical Exam: Patient is jaundiced and icteric Card exam is regular lungs are clear abdomen is with fullness in his right upper quadrant minorly tender Extremities are with trace edema Results & Data Results & Data Vital Signs (Past 12 Hours) Vital Signs Temp Pulse Pulse Resp BP BP Pulse Ox 06/04/23 16:00 71 06/04/23 15:09 97.9 F 89 18 120/74 96 06/04/23 11:37 98.4 F 67 12 121/74 93 06/04/23 07:46 98.2 F 72 14 118/74 93 06/04/23 07:38 60 O2 Del Method 06/04/23 16:00 06/04/23 15:09 Room Air 06/04/23 11:37 Room Air 06/04/23 07:46 Room Air 06/04/23 07:38 Laboratory Results reviewed cbc, reviewed chemistry PG Care Time/CCT Total # of Minutes Spent Total Time Spent with Patient: Total time spent is greater than 50% in coordination of care (as documented) at patient's floor/unit and/or counseling patient: Coding Level of Care Code 48170 SUB INP/OBS CARE 3/50MIN Diagnoses Total bilirubin, elevated R17 Acute hyponatremia E87.1 Hypertension I10 Cerebellar ataxia G11.9
[2023-06-05] MEDS: PIPERACILLIN/TAZOBACTAM 4.5 GM in DEXTROSE 5% 100 ML IV SCH ×3 (05:17→22:10)
[2023-06-05] MEDS: METOPROLOL TARTRATE 50 MG TAB PO SCH ×2 (09:38→20:07)
[2023-06-05] MEDS: levETIRAcetam 500 MG TAB PO SCH ×2 (09:38→20:06)
[2023-06-05] MEDS: PANTOprazole 40 MG TAB PO SCH ×2 (09:38→20:07)
[2023-06-05] MEDS ORDERED: ROCURONIUM BROMIDE 10 MG/ML 5 ML VIAL IV ONE ×6 (10:07→12:04)
[2023-06-05] MEDS ORDERED: DEXAMETHASONE SOD INJ 4 MG/ML VIAL ONE ×2 (10:07→11:53)
[2023-06-05] MEDS ORDERED: fentaNYL citrate PF 100 MCG/2 ML VIAL ONE (10:07)
[2023-06-05] MEDS ORDERED: MIDAZOLAM HCL 1 MG/ML 2ML VIAL ONE (10:07)
[2023-06-05] MEDS ORDERED: ONDANSETRON INJ 2 MG/ML 2 ML VIAL ONE (10:07)
[2023-06-05] MEDS ORDERED: LIDOCAINE 2% 2 ML VIAL/AMP(20MG/ML) INFIL ONE ×2 (10:07)
[2023-06-05] MEDS ORDERED: PROPOFOL IV EMULSION 10 MG/ML 20 ML VIAL IV ONE (10:07)
--- NOTE | 2023-06-05 10:12 | Hospitalist Progress Note ---
Date of Service June 05, 2023 Assessment & Plan (1) Total bilirubin, elevated: Plan: painless Jaundice , cholestasis by serology, cyctic liver lesion, previous alcohol use none for 2 years as quit after traumatic seizure. CT scan of abdomen and pelvis with IV contrast shows a cystic lesion in the anterior aspect of the left hepatic lobe measuring 6.5 x 4.1 cm, There was also noted cholelithiasis and mild gallbladder wall thickening Ultrasound of gallbladder shows a right hepatic cystic lesion measuring 5.6 x 4.1 x 4.4 cm, MRCP's suggest this is from distal common bile duct stone scheduled ERCP in the afternoon of 06/04, 2 stones removed, sphincterotomy, performed, for cholecystectomy 06/05 AFP is sent does have leukocytosis continues to be on Zosyn Plan for OR later today on 06/05 (2) Acute hyponatremia: Plan: Hyponatremia/hypokalemia/hypoosmolality- Looks to be a primary process of polydipsia fluid restrict with some improvement of sodium to 129 continue to follow replete other electrolytes Sodium has improved to 132. (3) Hypertension: Plan: Hypertension- Continue metoprolol tartrate 50 mg p.o. 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 every 12 hours previous alcohol will have pT/OT once recovers thiamine in 2021 was normal Admission and Anticipated Discharge Date Admission Date: June 01, 2023 Subjective Patient reports feeling well. Patient has no new complaints. awaiting surgery. Review of Systems Review of Systems: All systems reviewed & are unremarkable except as noted in HPI & below Physical Exam Physical Exam: Patient is jaundiced and icteric Card exam is regular lungs are clear abdomen is with fullness in his right upper quadrant Extremities are with trace edema Results & Data Results & Data Vital Signs (Past 12 Hours) Vital Signs Temp Pulse Pulse Resp BP BP Pulse Ox 06/05/23 07:55 36.7 C 59 L 16 114/69 93 06/05/23 07:39 56 L 06/05/23 04:31 36.5 C 60 18 112/71 94 06/05/23 00:00 61 O2 Del Method 06/05/23 07:55 Room Air 06/05/23 07:39 06/05/23 04:31 Room Air 06/05/23 00:00 PG Care Time/CCT Total # of Minutes Spent Total Time Spent with Patient: Total time spent is greater than 50% in coordination of care (as documented) at patient's floor/unit and/or counseling patient: Coding Level of Care Code 70128 SUB INP/OBS CARE 2/35MIN Diagnoses Total bilirubin, elevated R17 Acute hyponatremia E87.1 Hypertension I10 Cerebellar ataxia G11.9
[2023-06-05] MEDS: LACTATED RINGER'S 1,000 ML IV SCH ×2 (10:53→16:02)
[2023-06-05] MEDS ORDERED: ePHEDrine sulfate 50 MG/ML AMP IV PRN (10:53)
[2023-06-05] MEDS ORDERED: fentaNYL citrate PF 100 MCG/2 ML VIAL IV PRN (10:53)
[2023-06-05] MEDS ORDERED: ONDANSETRON INJ 2 MG/ML 2 ML VIAL IV PRN (10:53)
[2023-06-05] MEDS ORDERED: HYDROmorphone INJ 2 MG/ML SYR/VIAL IV PRN (10:53)
[2023-06-05] MEDS ORDERED: ATROPINE SULFATE 0.1 MG/ML 10ML SYR IV PRN (10:53)
[2023-06-05] MEDS ORDERED: PROMETHAZINE HCL 12.5 MG in SODIUM CHLORIDE 0.9% 50 ML IV PRN (10:53)
--- NOTE | 2023-06-05 10:53 | Anesthesiology Consultation ---
Date of Service June 05, 2023 Assessment & Plan Chart Review Chart Review: Acceptable Risk for Surgery Consults Requested none ASA ASA3 Proposed Anesthesia Anesthesia Type: General History Surgery Operation Date: 06/03/23 13:15 Proposed Procedures p Endoscopic Retrograde Cholangiopancreatogram - Allyson Salazar DO Operation Date: 06/05/23 09:35 Proposed Procedures p Laparoscopic Cholecystectomy - Naeem Albrecht DO, FACS Height/Weight Height: 6 ft 2 in Weight: 83.8 kg Allergies Allergy/AdvReac Type Severity Reaction Status Date / Time No Known Allergies Allergy Verified 06/05/23 10:28 Medications Home Medications Medication Instructions Recorded Confirmed Last Taken cholecalciferol (vitamin D3) 50 50 mcg PO DAILY #30 caps 07/20/20 06/01/23 04/01/21 mcg (2,000 unit) capsule aspirin 81 mg tablet,delayed 81 mg PO QAM #30 tabs 08/30/21 06/01/23 Unknown release levetiracetam 500 mg tablet 1,500 mg PO Q12H #540 tabs 05/31/22 06/01/23 Unknown doxazosin 2 mg tablet 2 mg PO DAILY #90 tabs 07/22/22 06/01/23 Unknown metoprolol tartrate 50 mg tablet 50 mg PO Q12H #180 tabs 07/22/22 06/01/23 Unk nown folic acid 1 mg tablet 1 mg PO DAILY #90 tabs 07/26/22 06/01/23 Unknown atorvastatin 40 mg tablet 40 mg PO QAM #90 tabs 12/27/22 06/01/23 Unknown duloxetine 30 mg capsule,delayed 30 mg PO DAILY #90 caps 03/07/23 06/01/23 Unknown release amlodipine 10 mg tablet 20 mg PO DAILY 06/01/23 06/01/23 Unknown pantoprazole 40 mg tablet,delayed 40 mg PO BID 06/01/23 06/01/23 Unknown release Active Medications Generic Name Dose Route Start Last Admin Trade Name Freq PRN Reason Stop Dose Admin Piperacillin Sod/Tazobactam 120 mls @ 30 mls/hr 06/02/23 06:00 06/05/23 09:38 Sod 4.5 gm/ Dextrose IV 06/12/23 05:59 Infused Q8H VINNY Infusion Protocol Lactated Ringer's 1,000 mls @ 15 mls/hr 06/03/23 15:30 06/04/23 15:19 Lr IV 07/03/23 15:29 Not Given .Q24H VINNY Levetiracetam 1,500 mg 06/02/23 02:06 06/05/23 09:38 Levetiracetam 500 Mg Tab PO 07/02/23 02:05 Not Given Q12 VINNY Metoprolol Tartrate 50 mg 06/02/23 02:06 06/05/23 09:38 Metoprolol Tartrate 50 Mg Tab PO 07/02/23 02:05 Not Given Q12 VINNY Pantoprazole Sodium 40 mg 06/02/23 09:00 06/05/23 09:38 Pantoprazole 40 Mg Tab PO 07/02/23 08:59 Not Given BID VINNY NPO Date Last Intake of Fluids: 06/04/23 Time Last Intake of Fluids: 23:45 Last Intake of Fluids Comment: has been on clear liquid diet since admission per pt Date Last Intake of Solids: 05/31/23 Time Last Intake of Solids: 17:00 Past Medical History Medical History Abnormal liver function test Abnormal MRI of head Alcohol withdrawal hallucinosis Alcohol withdrawal seizure PT DENIES Arthritis Closed C4 fracture COVID-19 03/01/22 CVA (cerebral vascular accident) Elevated liver enzymes Fracture of distal fibula Hx of gout Hx of intracranial hemorrhage MARCH 2020>DRUG INDUCED COMA AT [place]. "HAD A FEEDING TUBE SHORT TERM". PT UNSURE OF DETAILS Hypertension Lyme disease Seizure Seizure MARCH 2020 (FELL AND HIT HEAD>DRUG INDUCED COMA/HOSPITALIZED AT [facility]) FOLLOWS WITH [facility] Sprain of lateral ligament of ankle joint Syncope Temporal bone fracture Past Family History Family History Other No family history of adverse response to anesthesia No significant family history Denies family history of Prostate cancer Breast cancer Colorectal cancer Past Surgical History Surgical History H/O wrist surgery RT Hx of wisdom tooth extraction Social History Smoking Status: Never smoker tobacco type: smokeless tobacco Do You Dip or Chew Tobacco: Yes (1 can/day) Hx Alcohol Use: Yes Alcohol type: beer alcohol intake frequency: a few times a week Hx Substance Use: No substance use type: does not use Physical Exam Vital Signs Last Vital Signs Temp 36.5 C 06/05/23 10:29 Pulse 59 L 06/05/23 10:29 Resp 18 06/05/23 10:29 BP 121/88 06/05/23 10:29 Pulse Ox 96 06/05/23 10:29 O2 Del Method Room Air 06/05/23 10:29 O2 Flow Rate 7 06/03/23 17:00 Testing Laboratory Results 06/04/23 08:17 06/04/23 08:17 PT 11.6 Seconds (9.0-12.0) 06/04/23 08:17 INR 1.1 (0.9-1.1) 06/04/23 08:17 APTT 32.0 Seconds (21.0-31.0) H 06/04/23 08:17 Urine Color Dark Yellow 06/01/23 19:24 Urine Appearance Clear (Clear) 06/01/23 19:24 Urine pH 6.0 (4.5-7.5) 06/01/23 19:24 Ur Specific [place] 1.010 (1.000-1.030) 06/01/23 19:24 Urine Protein Negative (Negative) 06/01/23 19:24 Urine Glucose (UA) Negative (Negative) 06/01/23 19:24 Urine Ketones Negative (Negative) 06/01/23 19:24 Urine Nitrite Positive (Negative) A 06/01/23 19:24 Ur Leukocyte Esterase Negative (Negative) 06/01/23 19:24 Urine WBC (Auto) 1-5 /hpf (0-5) 06/01/23 19:24 Urine RBC (Auto) 0-4 /hpf (0-4) 06/01/23 19:24 U Hyaline Cast (Auto) 0 /lpf (0-5) 06/01/23 19:24 U Epithel Cells (Auto) 0-5 /lpf (0-5) 06/01/23 19:24 Urine Bacteria (Auto) Negative (Negative) 06/01/23 19:24 06/01/23 18:34 Aerobic Blood Culture - Preliminary Blood No growth in Aerobic bottle after 48 hours. Anaerobic Blood Culture - Preliminary No growth in Anaerobic bottle after 48 hours. 06/01/23 18:30 Aerobic Blood Culture - Preliminary Blood No growth in Aerobic bottle after 48 hours. Anaerobic Blood Culture - Preliminary No growth in Anaerobic bottle after 48 hours.
--- NOTE | 2023-06-05 11:00 | Surgery Progress Note ---
Date of Service June 05, 2023 Assessment & Plan (1) Choledocholithiasis: Plan: Recent ERCP with choledocholithiasis and cholangitis, plan for laparoscopic cholecystectomy today plan for robotic assisted laparoscopic cholecystectomy with possible cholangiogram today in the operating risks discussed to include but not limited to bleeding, infection, retained stone, bile leak, open surgery, damage to surrounding structures including bile duct, need for future or more extensive surgery, failure to treat symptoms, and risks of anesthesia. Admission and Anticipated Discharge Date Admission Date: June 01, 2023 Subjective 62-year-old male status post ERCP and stent placement for choledocholithiasis with cholangitis, plan for laparoscopic cholecystectomy today. He feels much better than prior to admission. No issues overnight Physical Exam Constitutional: WD/WN, vitals as above Respiratory: normal respiratory effort, lungs clear to auscultation Cardiovascular: RRR, no murmur, no edema Gastrointestinal (Abdomen): normal bowel sounds, soft, nontender, no hepatosplenomegaly Results & Data Vital Signs (Past 12 Hours) Vital Signs Temp Pulse Pulse Resp BP BP Pulse Ox 06/05/23 10:29 36.5 C 59 L 18 121/88 96 06/05/23 07:55 36.7 C 59 L 16 114/69 93 06/05/23 07:39 56 L 06/05/23 04:31 36.5 C 60 18 112/71 94 06/05/23 00:00 61 O2 Del Method 06/05/23 10:29 Room Air 06/05/23 07:55 Room Air 06/05/23 07:39 06/05/23 04:31 Room Air 06/05/23 00:00 PG Care Time/CCT Total # of Minutes Spent Total Time Spent with Patient: Total time spent is greater than 50% in coordination of care (as documented) at patient's floor/unit and/or counseling patient: Coding Level of Care Code 18258 SUB INP/OBS CARE 235MIN Diagnoses Choledocholithiasis K80.50
[2023-06-05] MEDS ORDERED: BUPIVACAINE 0.5 % 5 MG/1 ML MPF 30ML VIAL ONE (11:03)
[2023-06-05] MEDS ORDERED: SUGAMMADEX SODIUM 200 MG/2 ML VIAL IV ONE (12:02)
[2023-06-05] MEDS ORDERED: MoRPHine SULFATE 2 MG/ML CARP ONE (12:05)
[2023-06-05] MEDS ORDERED: ePHEDrine sulfate 50 MG/5 ML SYR ONE (12:06)
--- NOTE | 2023-06-05 13:08 | Operative Report ---
PG Post Operative Report Pre & Post Diagnosis Operation Date: 06/05/23 09:35 Pre-Op Diagnosis: Choledocholithiasis Post-Op Diagnosis: Choledocholithiasis, acute on chronic cholecystitis, hepatic abscess I identified the patient and participated in the time-out.: Yes Procedure Operation Date: 06/05/23 09:35 Actual Procedures p Laparoscopic Cholecystectomy, laparoscopic fenestration of hepatic abcess, laparoscopic lysis of adhesion(Not Applicable) - Naeem Albrecht DO, FACS Surgeon Naeem Albrecht DO, FACS [employer] Myra Ortega Estimated Blood Loss 50 Findings Consistent with Post-Op Diagnosis (Cholangitis, choledocholithiasis) Omentum adhesed to left lobe of liver. During retraction purulent drainage expressed. This was consistent with the area read as hepatic cyst on the prior CT scan. This was fenestrated and a portion of the wall sent for biopsy. Culture sent from hepatic abscess as well as cytology. Gallbladder with very significant and chronic cholecystitis. Critical view of safety obtained, cystic duct divided with penaloza loaded Endo NAYELI stapler. Artery clipped and divided. 10 mm ELIO drain placed in gallbladder fossa with tail and the fenestrated area of the cyst. Specimens Gallbladder Hepatic abscess for culture and cytology Hepatic abscess wall Drains 10 mm ELIO drain in gallbladder fossa Anesthesia Type General Complications none Disposition Accompanied Patient To Recovery: No Disposition: Recovery Room Indications 62-year-old male admitted with elevated LFTs and concern for choledoc holithiasis. ERCP performed with cholangitis and choledocholithiasis present. Plan for laparoscopic cholecystectomy the risks of the procedure were discussed, all questions were answered, and the patient agreed to proceed with surgery as planned. Description of Procedure The patient was properly identified, consented, and taken to the operating room where he was placed in the supine position. General endotracheal anesthesia was induced. SCDs and a safety belt were placed. Preoperative antibiotics were administered. The patient's abdomen was prepped and draped in the standard sterile fashion. A surgical timeout was performed and all parties were in agreement that this was the correct patient and procedure to be performed and we continued as planned. An incision was made superior and to the left of the umbilicus overlying the rectus muscle and the Veress needle was inserted. Saline drop test confirmed entry into the peritoneum. The abdomen was insufflated with carbon dioxide which the patient tolerated without incident. The abdomen was then entered using the Optiview technique and a 5 mm trocar. The laparoscope was inserted and no damage from initial trocar or Veress needle placement was noted, there was some omentum adhesed to the left lobe of the liver on both sides of the falciform ligament but otherwise no gross abnormalities were noted within the 4 quadrants of the abdomen. An 11 mm port was placed in the subxiphoid position and two 5 mm ports were then placed in the right subcostal position. The patient was placed in reverse Trendelenburg position and rotated towards the left. The gallbladder was identified and appeared to be contracted with evidence of acute on chronic inflammation. The omental adhesions prevented us from retracting the gallbladder over the liver. I then began to take down the omental adhesions from the left of the liver with combination of blunt dissection and Sonicision. During this dissection purulent drainage was expressed. The CT scan from his initial admission had mentioned a 6.5 cm hepatic cyst, and this appeared to be in that location. The omentum was completely taken down. It was obvious that there was a hepatic abscess present where the cyst had been identified. And an area that appeared to have the thinnest wall of liver we then performed a fenestration using the Sonicision. A small piece of this was sent for pathology. Cultures were sent from the fluid as well as cytology. The abscess was thoroughly irrigated and all purulent drainage was suctioned and irrigated. Hemostasis was achieved with Sonicision along with fenestrated wall. We then turned our attention to the gallbladder. There were dense omental adhesions to the gallbladder itself and again it appeared severely inflamed with chronic inflammation and contraction. The dome of the gallbladder was retracted towards the left upper quadrant and the infundibulum was retracted toward the right lower quadrant revealing Calot's triangle. The densely adhesed omentum and thick peritoneal attachments were taken down with the Sonicision and blunt dissection. The eventually the cystic duct and artery were circumferentially dissected. A window of safety was obtained showing the cystic duct entering the gallbladder with no aberrant structures noted. The cystic duct was very thick and firm. I then elected to staple this. The 11 mm port was removed and a 12 mm port was placed. The cystic duct was then divided using a 30 mm penaloza Endo NAYELI stapler. The cystic artery was then doubly clipped and divided. There was no good plane between the gallbladder and the liver bed. The gallbladder was then lifted off the gallbladder fossa with the Sonicision. Hemostasis in the liver bed was achieved with electrocautery. The gallbladder was placed in an Endo Catch bag and removed through the subxiphoid port site. The right upper quadrant copiously was irrigated and hemostasis was found to be good. A 10 mm flat ELIO drain was placed into the gallbladder fossa and the tail of it was placed into the fenestrated liver cyst/abscess cavity. This exited through the right lateral port with secured to place with a 2-0 nylon suture. 5 mm trochars were removed under direct visualization and the abdomen was allowed to collapse. The subxiphoid port site fascia was closed with 0 Vicryl suture utilizing the Farhad-Zak device prior to removal the ports. The wound was irrigated, and the skin of all ports was closed with 4-0 Monocryl subcuticular sutures. Dermabond was placed over the wounds. The patient was extubated in the operating room and taken to the PACU where he recovered without apparent incident. All sponge, instrument and needle counts were correct at the conclusion of the procedure. The patient tolerated the procedure well. The physician's internet marketing assistant was present and scrubbed for the entirety of the case and was essential in positioning the patient, prepping and draping, retraction and exposure, driving the laparoscope, removal of the gallbladder, closure the incisions, and placement of the dressings. I attest to the content of the Intraoperative Record and any orders documented therein. Any exceptions are noted below.
--- NOTE | 2023-06-05 13:49 | Anesthesiology Progress Note ---
Date of Service June 05, 2023 Anesthesia Post Procedure Vital Signs Vital Signs: Temp Pulse Pulse Pulse Resp BP BP 06/05/23 13:35 36.2 C L 63 13 111/74 06/05/23 13:25 61 14 119/76 06/05/23 13:15 64 15 123/73 06/05/23 13:09 36.2 C L 66 16 120/72 06/05/23 10:29 36.5 C 59 L 18 121/88 06/05/23 07:55 36.7 C 59 L 16 114/69 06/05/23 07:39 56 L 06/05/23 04:31 36.5 C 60 18 112/71 06/05/23 00:00 61 06/04/23 22:00 36.6 C 66 18 127/82 06/04/23 19:00 36.2 C L 75 18 119/79 06/04/23 16:00 71 06/04/23 15:09 36.6 C 89 18 120/74 Pulse Ox O2 Del Method O2 Flow Rate 06/05/23 13:35 96 Nasal Cannula 2 06/05/23 13:25 100 Oxymask 7 06/05/23 13:15 100 Oxymask 7 06/05/23 13:09 97 Oxymask 7 06/05/23 10:29 96 Room Air 06/05/23 07:55 93 Room Air 06/05/23 07:39 06/05/23 04:31 94 Room Air 06/05/23 00:00 06/04/23 22:00 94 Room Air 06/04/23 19:00 95 Room Air 06/04/23 16:00 06/04/23 15:09 96 Room Air Transfer of Care Handoff Completed per policy Notes Mental Status: alert / awake / arousable and participated in evaluation Patient Amnestic to Procedure: Yes Nausea / Vomiting: adequately controlled Pain: adequately controlled Airway Patency, RR, SpO2: stable & adequate BP & HR: stable & adequate Hydration State: stable & adequate Anesthetic Complications: no major complications apparent
[2023-06-05] MEDS ORDERED: oxyCODONE HCL IR 5 MG TAB (IMMEDIATE RELEASE) PO PRN ×2 (14:07)
[2023-06-05] MEDS ORDERED: MoRPHine SULFATE 2 MG/ML CARP IV PRN (14:07)
[2023-06-05] MEDS ORDERED: ACETAMINOPHEN 1,000 MG/100 ML VIAL IV PRN (14:07)
[2023-06-05] MEDS ORDERED: MoRPHine SULFATE 4 MG/ML 1 ML CARP\\VIAL IV PRN (14:07)
[2023-06-06] MEDS: LACTATED RINGER'S 1,000 ML IV SCH ×2 (02:13→17:44)
[2023-06-06] MEDS: PIPERACILLIN/TAZOBACTAM 4.5 GM in DEXTROSE 5% 100 ML IV SCH ×3 (05:04→22:34)
[2023-06-06 07:03] LABS: Basophils # (auto) 0.01 K/uL (0.00-0.20); Basophils % (auto) 0.1 %; Eosinophils # (auto) 0.01 K/uL (0.00-0.50); Eosinophils % (auto) 0.1 %; Hematocrit (blood only) 29.6 % (42.0-52.0); Hemoglobin 10.1 g/dl (14.0-18.0); Immature Granulocytes % (auto) 0.7 %; Lymphocytes # (auto) 1.71 K/uL (1.20-3.40); Mean Corpuscular Hemoglobin 29.3 pg (25.0-34.0); Mean Corpuscular Hgb Conc 34.1 g/dL (32.0-36.0); Mean Corpuscular Volume 85.8 fL (80.0-100.0); Mean Platelet Volume 9.8 fL (9.4-12.4); Monocytes # (auto) 0.99 K/uL (0.11-0.59); Monocytes % (auto) 6.9 %; Neutrophils # (auto) 11.48 K/uL (1.40-6.50); Neutrophils % (auto) 80.2 %; Platelet Count 574 K/uL (130-400); RDW Coefficient of Variation 14.2 % (11.5-14.5); RDW Standard Deviation 43.9 fL (36.4-46.3); Red Blood Count 3.45 M/uL (4.70-6.10)
[2023-06-06 07:18] LABS: Albumin Level 2.6 gm/dl (3.4-5.0); BUN Creatinine Ratio 11.1 (10-20); Bilirubin Direct 0.6 mg/dl (0-0.2); Bilirubin,Total 1.8 mg/dl (0.2-1.0); Calcium 7.7 mg/dl (8.6-10.3); Creatinine Clr Calc Pharmacy 108.5 ml/min; Est GFR (African American) 109.6 ml/min; Est GFR (Non-African American) 94.6 ml/min; Potassium 3.9 mmol/L (3.5-5.1); Total Protein 5.9 gm/dl (6.0-8.3)
--- NOTE | 2023-06-06 07:46 | Surgery Progress Note ---
Date of Service June 06, 2023 Assessment & Plan (1) Status post laparoscopic cholecystectomy: Plan: Also drainage of what appeared to be a liver abscess Gram stain does show gram-negative bacilli Drain in subhepatic space and into the abscess Leave drain in place Continue IV antibiotics Dr. Barrett covering over the weekend Admission and Anticipated Discharge Date Admission Date: June 01, 2023 Results & Data Vital Signs (Past 12 Hours) Vital Signs Temp Pulse Pulse Resp BP Pulse Ox O2 Del Method 06/06/23 04:11 36.6 C 66 18 134/89 98 Room Air 06/05/23 23:22 66 06/05/23 22:00 36.4 C L 65 18 131/78 92 Room Air 06/05/23 22:07 36.5 C 16 93 Room Air PG Care Time/CCT Total # of Minutes Spent Total Time Spent with Patient: Total time spent is greater than 50% in coordination of care (as documented) at patient's floor/unit and/or counseling patient: Coding Level of Care Code 50300 Post Operative Follow-Up Diagnoses Status post laparoscopic cholecystectomy Z90.49
[2023-06-06] MEDS: METOPROLOL TARTRATE 50 MG TAB PO SCH ×2 (08:32→20:16)
[2023-06-06] MEDS: levETIRAcetam 500 MG TAB PO SCH ×2 (08:33→20:16)
[2023-06-06] MEDS: PANTOprazole 40 MG TAB PO SCH ×2 (08:33→20:16)
--- NOTE | 2023-06-06 15:44 | Infectious Disease Consult ---
Date of Consultation June 06, 2023 Assessment & Plan (1) Liver mass: (2) Choledocholithiasis: Plan 62yo male with pmh traumatic brain injury, esophageal stricture, cerebellar ataxia, thrombocytopenia, vitamin B12 deficiencies, peripheral neuropathy, history of alcohol abuse presents with a 1 week history of abdominal pain, nausea, vomiting, poor appetite, unsteady gait. He reports increased fluid intake. He denies fever, chills, sweats, diarrhea, rash Afebrile and HDS in Ed. On exam, he was jaundiced. Labs noted for a wbc 21k, Na 124, Lactic acid 2.5, AST 84, total bilirubin 8.4, alkaline phosphatase 496 and Pro- 0.87. CTAB shows a cystic lesion which measured 6.5 x 4.1 cm. in the anterior aspect of the L hepatic lobe; cholelithiasis with mild gallbladder wall thickening. Abdominal MRI showed choledocholithiasis with 5 mm distal common bile duct stone w/o significant biliary dilatation as well as the hepatic cyst.. He underwent ERCP in 06/03 w/stone removal, biliary sphincterotomy, balloon extraction with placement of a pancreatic and biliary stent. On 06/05, he underwent laparoscopic cholecystectomy and drainage of hepatic abscess. Abscess cx and cytology obtained. ELIO drain placed in subhepatic space. Abscess cx growing GNR and GPC. ID consulted for hepatic abscess. He is on Zosyn. Micro BC 06/01 NGtd Hepatic abscess Gram Stain Many WBCs ,Few GNR Culture: GNR and GPC Abx zosyn 06/01- ongoing #Choledocholithiasis #Hepatic abscess #Cholecystitis He remains stable on Zosyn. So far intraop cx growing GNR and GPR Recommendation Continue Zosyn Started IV vanco per pharm protocol pending ID and sens of GPC Follow up GNR and GPC ID and sensi from hepatic abscess cx Follow BC Thank you for this consultation. ID will continue to follow. Kade Cartwright MD, MPH Infectious Disease [facility] Call [phone] with questions Consultation Information Consultation was provided via telemedicine using two-way real-time interactive telecommunication between the patient and the telemedicine provider. For the duration of the visit, the provider was performing the assessment from a different facility than the patient. This includesuse of bluetooth stethoscope forauscultationperformed by the telepresenter that the telemedicine provider can hear if described in the physical exam. Pre Certification Specialist contact information: Please call [facility] Center . (Phone Number For Physician Use Only) After establishing a telemedicine visit, patient was: Patient was verified with two unique identifiers and Patient/authorized rep acknowledged consent and understanding Time Spent with Patient: Initial => 75 min History of Present Illness Reason for Consultation: Infected Liver cyst/abscess Requesting Physician: dick Hernández Attending Physician: Sundeep Carter History of Present Illness 62yo male with pmh traumatic brain injury, esophageal stricture, cerebellar ataxia, thrombocytopenia, vitamin B12 deficiencies, peripheral neuropathy, history of alcohol abuse presents with a 1 week history of abdominal pain, nausea, vomiting, poor appetite, unsteady gait. He reports increased fluid intake. He denies fever, chills, sweats, diarrhea, rash Afebrile and HDS in Ed. On exam, he was jaundiced. Labs noted for a wbc 21k, Na 124, Lactic acid 2.5, AST 84, total bilirubin 8.4, alkaline phosphatase 496 and Pro- 0.87. CTAB shows a cystic lesion which measured 6.5 x 4.1 cm. in the anterior aspect of the L hepatic lobe; cholelithiasis with mild gallbladder wall thickening. Abdominal MRI showed choledocholithiasis with 5 mm distal common bile duct stone w/o significant biliary dilatation as well as the hepatic cyst.. He underwent ERCP in 06/03 w/stone removal, biliary sphincterotomy, balloon extraction with placement of a pancreatic and biliary stent. On 06/05, he underwe nt laparoscopic cholecystectomy and drainage of hepatic abscess. Abscess cx and cytology obtained. ELIO drain placed in subhepatic space. Abscess cx growing GNR and GPC. ID consulted for hepatic abscess. He is on Zosyn. Allergies Allergy/AdvReac Type Severity Reaction Status Date / Time No Known Allergies Allergy Verified 06/05/23 10:28 Home Medications Medication Instructions Recorded Confirmed Type cholecalciferol (vitamin D3) 50 50 mcg PO DAILY #30 caps 07/20/20 06/01/23 Rx mcg (2,000 unit) capsule aspirin 81 mg tablet,delayed 81 mg PO QAM #30 tabs 08/30/21 06/01/23 Rx release doxazosin 2 mg tablet 2 mg PO DAILY #90 tabs 07/22/22 06/01/23 Rx metoprolol tartrate 50 mg tablet 50 mg PO Q12H #180 tabs 07/22/22 06/01/23 Rx folic acid 1 mg tablet 1 mg PO DAILY #90 tabs 07/26/22 06/01/23 Rx atorvastatin 40 mg tablet 40 mg PO QAM #90 tabs 12/27/22 06/01/23 Rx duloxetine 30 mg capsule,delayed 30 mg PO DAILY #90 caps 03/07/23 06/01/23 Rx release amlodipine 10 mg tablet 20 mg PO DAILY 06/01/23 06/01/23 History pantoprazole 40 mg tablet,delayed 40 mg PO BID 06/01/23 06/01/23 History release levetiracetam 500 mg tablet 1,500 mg PO Q12H #540 tabs 06/05/23 Rx Patient History Medical History Abnormal liver function test Abnormal MRI of head Alcohol withdrawal hallucinosis Alcohol withdrawal seizure PT DENIES Arthritis Closed C4 fracture COVID-19 03/01/22 CVA (cerebral vascular accident) Elevated liver enzymes Fracture of distal fibula Hx of gout Hx of intracranial hemorrhage MARCH 2020>DRUG INDUCED COMA AT [place]. "HAD A FEEDING TUBE SHORT TERM". PT UNSURE OF DETAILS Hypertension Lyme disease Seizure Seizure MARCH 2020 (FELL AND HIT HEAD>DRUG INDUCED COMA/HOSPITALIZED AT [facility]) FOLLOWS WITH [facility] Sprain of lateral ligament of ankle joint Syncope Temporal bone fracture Surgical History (Updated 06/06/23 @ 11:24 by Gunjan Guzman RN) H/O wrist surgery RT Hx laparoscopic cholecystectomy (06/05/23) Laparoscopic Cholecystectomy, laparoscopic fenestration of hepatic abcess, laparoscopic lysis of adhesion(Not Applicable) - Naeem Albrecht DO, FACS Hx of wisdom tooth extraction Family History Other No family history of adverse response to anesthesia No significant family history Denies family history of Prostate cancer Breast cancer Colorectal cancer Social History Smoking Status: Never smoker Tobacco Type: Smokeless Tobacco (Dip or Chew) Second Hand Exposure: No; Do You Dip or Chew Tobacco: Yes (1 can/day); Hx Alcohol Use: Yes Alcohol type: beer Hx Substance Use: No Preferred Language: Hebrew Communication Ability: Effective Spent Grain Dryer Required: No Beliefs That Will Affect Care: None marital status: Current Living Situation: Family Current Living Situation Comment: Living with , daughter, son-in-law, grandchildren, nephew Feels Safe at Home: Yes Diet: regular caffeine: Yes Dental Care, Regularly: No Assistive Devices: Glasses Review of System A 10 point ROS obtained. Pertinent positives as per HPI. Physical Exam Constitutional: NAD, jaundiced Eyes: Icteric sclera Respiratory: No increased work of breathing Gastrointestinal (Abdomen): Soft, RUQ TTP, + ELIO drain, distended Musculoskeletal: Pitting Edema In BL LE. Neurologic: AAO*3 Results & Data Vital Signs (Past 12 Hours) Vital Signs Temp Pulse Pulse Resp BP Pulse Ox Pulse Ox 06/06/23 13:02 58 L 06/06/23 11:30 36.6 C 66 16 117/65 93 06/06/23 08:35 06/06/23 08:22 94 06/06/23 07:50 36.6 C 59 L 16 129/79 92 06/06/23 04:11 36.6 C 66 18 134/89 98 O2 Del Method O2 Del Method O2 Flow Rate O2 Flow Rate 06/06/23 13:02 06/06/23 11:30 Room Air 06/06/23 08:35 Room Air, Nasal Cannula 2 06/06/23 08:22 Nasal Cannula 2 06/06/23 07:50 Room Air 06/06/23 04:11 Room Air Laboratory Results Laboratory Results - last 48 hr 06/06/23 06/06/23 06:07 06:07 WBC 14.30 H RBC 3.45 L Hgb 10.1 L Hct 29.6 L MCV 85.8 MCH 29.3 MCHC 34.1 RDW Std Deviation 43.9 RDW Coeff of Odin 14.2 Plt Count 574 H MPV 9.8 Immature Gran % (Auto) 0.7 Neut % (Auto) 80.2 Lymph % (Auto) 12.0 Cooper % (Auto) 6.9 Eos % (Auto) 0.1 Baso % (Auto) 0.1 Neut # (Auto) 11.48 H Lymph # (Auto) 1.71 Cooper # (Auto) 0.99 H Eos # (Auto) 0.01 Baso # (Auto) 0.01 Immature Gran # (Auto) 0.10 Sodium 135 L Potassium 3.9 Chloride 99 Carbon Dioxide 30 Anion Gap 6 BUN 9 Creatinine 0.81 Est Cr Clr Drug Dosing 108.5 Est GFR ( Amer) 109.6 Est GFR (Non-Af Amer) 94.6 BUN/Creatinine Ratio 11.1 Glucose 96 Calcium 7.7 L Total Bilirubin 1.8 H Direct Bilirubin 0.6 H AST 35 ALT 28 Alkaline Phosphatase 209 H Total Protein 5.9 L Albumin 2.6 L Diagnostic Findings Microbiology 06/05/23 11:52 Gallbladder Gram Stain - Final 06/05/23 11:52 Gallbladder Aerobic and Anaerobic Culture - Preliminary 06/01/23 18:34 Blood Aerobic Blood Culture - Preliminary No growth in Aerobic bottle after 48 hours. 06/01/23 18:34 Blood Anaerobic Blood Culture - Preliminary No growth in Anaerobic bottle after 48 hours. 06/01/23 18:30 Blood Aerobic Blood Culture - Preliminary No growth in Aerobic bottle after 48 hours. 06/01/23 18:30 Blood Anaerobic Blood Culture - Preliminary No growth in Anaerobic bottle after 48 hours. Endo Retro Cholangiopancreatogram 06/03/23 10:05 FL ERCP biliary ductal CLINICAL HISTORY: for ercpacute upper abdominal pain COMPARISON STUDY: CT 06/01/2023 FLUOROSCOPY TIME: 75.9 seconds FLUOROSCOPY IMAGES: 12 EXPOSURE DOSE: 24.42 mGy FINDINGS: Endoscope within the duodenum. Endoscopy clips within the duodenum are noted. There is cannulation of the common bile duct with retrograde injection of contrast and subsequent balloon sweep. Apparent intraluminal filling defects in the biliary tree. Subsequent images demonstrate placement of a common bile duct stent which appears to be in satisfactory positioning. Additionally, there is a pancreatic stent which appears to be in satisfactory positioning. IMPRESSION: Fluoroscopic assistance as above. ACT 112: Negative or not required by law. Electronically signed by: Bryan Spencer M.D. 06/03/2023 6:05 PM Medications Administered Home Medications Medication Instructions Recorded Confirmed Last Taken cholecalciferol (vitamin D3) 50 50 mcg PO DAILY #30 caps 07/20/20 06/01/23 04/01/21 mcg (2,000 unit) capsule aspirin 81 mg tablet,delayed 81 mg PO QAM #30 tabs 08/30/21 06/01/23 Unknown release doxazosin 2 mg tablet 2 mg PO DAILY #90 tabs 07/22/22 06/01/23 Unknown metoprolol tartrate 50 mg tablet 50 mg PO Q12H #180 tabs 07/22/22 06/01/23 Unknown folic acid 1 mg tablet 1 mg PO DAILY #90 tabs 07/26/22 06/01/23 Unknown atorvastatin 40 mg tablet 40 mg PO QAM #90 tabs 12/27/22 06/01/23 Unknown duloxetine 30 mg capsule,delayed 30 mg PO DAILY #90 caps 03/07/23 06/01/23 Unknown release amlodipine 10 mg tablet 20 mg PO DAILY 06/01/23 06/01/23 Unknown pantoprazole 40 mg tablet,delayed 40 mg PO BID 06/01/23 06/01/23 Unknown release levetiracetam 500 mg tablet 1,500 mg PO Q12H #540 tabs 06/05/23 Unknown Active Medications Generic Name Dose Route Start Last Admin Trade Name Freq PRN Reason Stop Dose Admin Piperacillin Sod/Tazobactam 120 mls @ 30 mls/hr 06/02/23 06:00 06/06/23 13:18 Sod 4.5 gm/ Dextrose IV 06/12/23 05:59 30 mls/hr Q8H VINNY Administration Protocol Lactated Ringer's 1,000 mls @ 80 mls/hr 06/05/23 14:30 06/06/23 14:46 Lr IV 07/05/23 14:29 Infused .[id number] VINNY Infusion Levetiracetam 1,500 mg 06/02/23 02:06 06/06/23 08:33 Levetiracetam 500 Mg Tab PO 07/02/23 02:05 1,500 mg Q12 VINNY Administration Metoprolol Tartrate 50 mg 06/02/23 02:06 06/06/23 08:32 Metoprolol Tartrate 50 Mg Tab PO 07/02/23 02:05 Not Given Q12 VINNY Morphine Sulfate 4 mg 06/05/23 14:07 06/06/23 03:39 Morphine Sulfate 4 Mg/Ml 1 Ml Carp\\Vial IV 06/19/23 14:06 4 mg Q3H PRN Administration Severe Pain (Scale 7, 8, 9,10) Oxycodone HCl 5 mg 06/05/23 14:07 06/06/23 11:23 Oxycodone Hcl Ir 5 Mg Tab (Immediate Release) PO 06/19/23 14:06 5 mg Q4H PRN Administration Moderate Pain (Scale 4, 5, 6) Pantoprazole Sodium 40 mg 06/02/23 09:00 06/06/23 08:33 Pantoprazole 40 Mg Tab PO 07/02/23 08:59 40 mg BID VINNY Administration
--- NOTE | 2023-06-06 22:26 | Hospitalist Progress Note ---
Date of Service June 06, 2023 Assessment & Plan (1) Total bilirubin, elevated: Plan: painless Jaundice , cholestasis by serology, cyctic liver lesion, previous alcohol use none for 2 years as quit after traumatic seizure. CT scan of abdomen and pelvis with IV contrast shows a cystic lesion in the anterior aspect of the left hepatic lobe measuring 6.5 x 4.1 cm, There was also noted cholelithiasis and mild gallbladder wall thickening Ultrasound of gallbladder shows a right hepatic cystic lesion measuring 5.6 x 4.1 x 4.4 cm, MRCP's suggest this is from distal common bile duct stone scheduled ERCP in the afternoon of 06/04, 2 stones removed, sphincterotomy, performed, for cholecystectomy 06/05 AFP is sent does have leukocytosis continues to be on Zosyn liver abscess shown on imagng. Gram stain does show gram-negative bacilli Drain in subhepatic space and into the abscess Leave drain in place (2) Acute hyponatremia: Plan: Hyponatremia/hypokalemia/hypoosmolality- Looks to be a primary process of polydipsia fluid restrict with some improvement of sodium to 129 continue to follow replete other electrolytes Sodium has improved to 132. (3) Hypertension: Plan: Hypertension- Continue metoprolol tartrate 50 mg p.o. 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 every 12 hours previous alcohol will have pT/OT once recovers thiamine in 2021 was normal Admission and Anticipated Discharge Date Admission Date: June 01, 2023 Subjective Patient reports no new symptoms. Review of Systems Review of Systems: All systems reviewed & are unremarkable except as noted in HPI & below Physical Exam Physical Exam: Patient is jaundiced and icteric Card exam is regular lungs are clear abdomen is with fullness in his right upper quadrant Extremities are with trace edema Results & Data Results & Data Vital Signs (Past 12 Hours) Vital Signs Temp Pulse Pulse Resp BP Pulse Ox O2 Del Method 06/06/23 19:25 36.5 C 79 18 128/77 92 Room Air 06/06/23 18:09 69 06/06/23 15:51 36.4 C L 74 16 123/72 90 Room Air 06/06/23 13:02 58 L 06/06/23 11:30 36.6 C 66 16 117/65 93 Room Air PG Care Time/CCT Total # of Minutes Spent Total Time Spent with Patient: Total time spent is greater than 50% in coordination of care (as documented) at patient's floor/unit and/or counseling patient: Coding Level of Care Code 45867 SUB INP/OBS CARE 2/35MIN Diagnoses Total bilirubin, elevated R17 Acute hyponatremia E87.1 Hypertension I10 Cerebellar ataxia G11.9
[2023-06-06] MEDS ORDERED: DAPTOmycin 500 MG in SYRINGE 0 ML IV SCH (23:30)
[2023-06-07] MEDS: LACTATED RINGER'S 1,000 ML IV SCH (06:47)
[2023-06-07] MEDS: PIPERACILLIN/TAZOBACTAM 4.5 GM in DEXTROSE 5% 100 ML IV SCH ×2 (06:47→14:25)
[2023-06-07 08:09] LABS: Hematocrit (blood only) 30.6 % (42.0-52.0); Hemoglobin 10.6 g/dl (14.0-18.0); Mean Corpuscular Hemoglobin 29.3 pg (25.0-34.0); Mean Corpuscular Hgb Conc 34.6 g/dL (32.0-36.0); Mean Corpuscular Volume 84.5 fL (80.0-100.0); Mean Platelet Volume 9.6 fL (9.4-12.4); Platelet Count 566 K/uL (130-400); RDW Coefficient of Variation 14.6 % (11.5-14.5); RDW Standard Deviation 44.8 fL (36.4-46.3); Red Blood Count 3.62 M/uL (4.70-6.10); White Blood Count 11.99 K/ul (4.8-10.8)
[2023-06-07 08:28] LABS: BUN Creatinine Ratio 7.7 (10-20); C Reactive Protein 12.5 mg/dl (0-0.5); Calcium 7.9 mg/dl (8.6-10.3); Creatinine Clr Calc Pharmacy 111.1 ml/min; Est GFR (African American) 111.3 ml/min; Est GFR (Non-African American) 96.1 ml/min; Potassium 3.4 mmol/L (3.5-5.1)
[2023-06-07] MEDS: METOPROLOL TARTRATE 50 MG TAB PO SCH ×2 (08:42→20:36)
[2023-06-07] MEDS: PANTOprazole 40 MG TAB PO SCH ×2 (08:42→20:36)
[2023-06-07] MEDS: levETIRAcetam 500 MG TAB PO SCH ×2 (08:42→20:35)
--- NOTE | 2023-06-07 16:19 | Surgery Progress Note ---
Date of Service June 07, 2023 Assessment & Plan (1) Status post laparoscopic cholecystectomy: Plan: 06/07/2023 4:[address] stafford, F/U S/P lap poncho, drainage liver abscess, POD 2, pt is doing better, tolerated diet, no fever, ELIO 80 ml. ID consulted add on Daptomycin. plan, continue iv antibiotic, will F/U. Admission and Anticipated Discharge Date Admission Date: June 01, 2023 Supervising Physician Co-Signing Physician Notes I personally saw and evaluated the patient on 06/04/2023 with PHILIP Chapman and agree with her findings and plan of care. 62 y/o M admitted with abdominal pain, jaundice, and abnormal LFTs found to have choledocholithiasis on imaging. he underwent ERCP 06/03 with choledocholithiasis removal and also noted to have cholangitis. he had 2 stents placed. Today his LFTs have significantly improved and are down trending. He denies any abdominal pain or symptoms and feels well. He reports he is getting a cholecystectomy tomorrow. On exam he has very mild scleral icterus. Abdomen is soft and non- tender. He will need a repeat ERCP in 6-8 weeks for stent removal which he will arrange as outpatient. Continue IV abx while admitted and switch to cipro/flagyl on discharge for a total of 2 weeks of antibiotic coverage. Avoid NSAIDS or high dose asa for 1 week after sphincterotomy. Trend daily LFTs while admitted. Agree with cholecystectomy prior to discharge. GI will sign off but please call back with questions. Rehana Encinas, Gastroenterology and Hepatology Subjective Patient reports no new symptoms. 06/07/2023 4:[address] stafford, F/U S/P lap poncho, drainage liver abscess, POD 2, pt is doing better, tolerated diet, no fever, ELIO 80 ml. ID consulted add on Daptomycin. Physical Exam Constitutional: WD/WN, vitals as above Eyes: PERRL, conjunctivae normal, anicteric sclerae Neck: trachea midline, no thyromegaly Respiratory: normal respiratory effort, lungs clear to auscultation Cardiovascular: RRR, no murmur, no edema Gastrointestinal (Abdomen): soft, mild tenderness at incision site, no rebound pain, no distend, ELIO intact, all incisions intact, no redness. Neurologic: patellar DTR's 2+ bilat, sensation intact Psychiatric: A+Ox3, euthymic affect Results & Data Vital Signs (Past 12 Hours) Vital Signs Temp Pulse Pulse Resp BP Pulse Ox O2 Del Method 06/07/23 15:42 36.6 C 68 16 145/86 H 91 Room Air 06/07/23 11:45 67 06/07/23 11:18 36.5 C 62 18 139/86 94 Room Air 06/07/23 08:48 Room Air 06/07/23 07:39 37.1 C 68 18 134/83 91 Room Air Laboratory Results Lab Results 06/01/23 06/01/23 06/01/23 Range/Units 16:30 16:30 16:30 WBC 21.35 H (4.8-10.8) K/ul RBC 4.57 L (4.70-6.10) M/uL Hgb 13.3 L (14.0-18.0) g/dl Hct 37.6 L (42.0-52.0) % MCV 82.3 (80.0-100.0) fL MCH 29.1 (25.0-34.0) pg MCHC 35.4 (32.0-36.0) g/dL RDW Std Deviation 39.8 (36.4-46.3) fL RDW Coeff of Odin 13.4 (11.5-14.5) % Plt Count 344 (130-400) K/uL MPV 10.4 (9.4-12.4) fL Immature Gran % (Auto) 1.2 % Neut % (Auto) 87.8 % Lymph % (Auto) 5.8 % [place] % (Auto) 4.8 % Eos % (Auto) 0.2 % Baso % (Auto) 0.2 % Neut # (Auto) 18.75 H (1.40-6.50) K/uL Lymph # (Auto) 1.24 (1.20-3.40) K/uL [place] # (Auto) 1.02 H (0.11-0.59) K/uL Eos # (Auto) 0.05 (0.00-0.50) K/uL Baso # (Auto) 0.04 (0.00-0.20) K/uL Immature Gran # (Auto) 0.25 H (0.01-0.20) K/uL PT 11.9 (9.0-12.0) Seconds INR 1.1 (0.9-1.1) APTT 32.0 H (21.0-31.0) Seconds PTT Ratio 1.1 Sodium 124 L (136-145) mmol/L Potassium 3.0 L (3.5-5.1) mmol/L Chloride 85 L (98-107) mmol/L Carbon Dioxide 27 (21-32) mmol/L Anion Gap 12 H (3-11) BUN 7 (6-23) mg/dl Creatinine 0.88 (0.6-1.4) mg/dl Est Cr Clr Drug Dosing Not Reportable Est GFR ( Amer) 106.0 ml/min Est GFR (Non-Af Amer) 91.4 ml/min BUN/Creatinine Ratio 8.0 L (10-20) Glucose 124 H (70-99(Fasting)) mg/dl Osmolality (280-300) mOsm/kg Lactate (0.4-2.0) mmol/L Calcium 8.4 L (8.6-10.3) mg/dl Magnesium (1.7-2.4) mg/dl Total Bilirubin 8.4 H (0.2-1.0) mg/dl Direct Bilirubin (0-0.2) mg/dl AST 84 H (13-39) U/L ALT 48 (7-52) U/L Alkaline Phosphatase 496 H (34-104) U/L Ammonia (18-72) umol/L Total Creatine Kinase (30-223) U/L Troponin I High Sens (0-20) pg/ml C-Reactive Protein (0-0.5) mg/dl Total Protein 6.4 (6.0-8.3) gm/dl Albumin 3.3 L (3.4-5.0) gm/dl Globulin 3.1 (2.5-4.0) gm/dl Albumin/Globulin Ratio 1.1 (0.9-2) Lipase 27 (11-82) U/L Tumor Marker AFP (<6.1) ng/mL Procalcitonin (0-0.5) ng/ml TSH (0.300-4.500) uIu/ml Urine Color Urine Appearance (Clear) Urine pH (4.5-7.5) Ur Specific Trevor (1.000-1.030) Urine Protein (Negative) Urine Glucose (UA) (Negative) Urine Ketones (Negative) Urine Blood (Negative) Urine Nitrite (Negative) Urine Bilirubin (Negative) Urine Urobilinogen (Negative) Ur Leukocyte Esterase (Negative) Urine WBC (Auto) (0-5) /hpf Urine RBC (Auto) (0-4) /hpf U Hyaline Cast (Auto) (0-5) /lpf U Epithel Cells (Auto) (0-5) /lpf Urine Bacteria (Auto) (Negative) Urine Osmolality (500-800) mOsm/kg Ethyl Alcohol mg/dL (<10.0) mg/dl SARS-CoV-2 (PCR) (Negative) Hepatitis A IgM Ab (NON-REACTIVE) Hep Bs Antigen (NON-REACTIVE) Hep Bs Ag Confirmation Hep B Core IgM Ab (NON-REACTIVE) Hepatitis C Ab (EIA) (NON-REACTIVE) Influenza Type A (PCR) (Neg) Influenza Type B (PCR) (Neg) RSV (RT-PCR) (Neg) First/Repeat Specimen Gestational Age Estimated Delivery Date Est Date Determined By Maternal Race Maternal Weight Maternal Diabetes Number of Fetuses Maternal Scrn Egg Donor Donor Age or AFP Triple Screen Prev Trisomy 21 Preg Maternal Serum AFP AFP MoM Maternal AFP Interp Family History NTD NTD Risk Assessment Maternal Scrn Comment 06/01/23 06/01/23 06/01/23 Range/Units 16:30 18:30 18:30 WBC (4.8-10.8) K/ul RBC (4.70-6.10) M/uL Hgb (14.0-18.0) g/dl Hct (42.0-52.0) % MCV (80.0-100.0) fL MCH (25.0-34.0) pg MCHC (32.0-36.0) g/dL RDW Std Deviation (36.4-46.3) fL RDW Coeff of Odin (11.5-14.5) % Plt Count (130-400) K/uL MPV (9.4-12.4) fL Immature Gran % (Auto) % Neut % (Auto) % Lymph % (Auto) % [place] % (Auto) % Eos % (Auto) % Baso % (Auto) % Neut # (Auto) (1.40-6.50) K/uL Lymph # (Auto) (1.20-3.40) K/uL [place] # (Auto) (0.11-0.59) K/uL Eos # (Auto) (0.00-0.50) K/uL Baso # (Auto) (0.00-0.20) K/uL Immature Gran # (Auto) (0.01-0.20) K/uL PT (9.0-12.0) Seconds INR (0.9-1.1) APTT (21.0-31.0) Seconds PTT Ratio Sodium (136-145) mmol/L Potassium (3.5-5.1) mmol/L Chloride (98-107) mmol/L Carbon Dioxide (21-32) mmol/L Anion Gap (3-11) BUN (6-23) mg/dl Creatinine (0.6-1.4) mg/dl Est Cr Clr Drug Dosing Est GFR ( Amer) ml/min Est GFR (Non-Af Amer) ml/min BUN/Creatinine Ratio (10-20) Glucose (70-99(Fasting)) mg/dl Osmolality 263 L (280-300) mOsm/kg Lactate (0.4-2.0) mmol/L Calcium (8.6-10.3) mg/dl Magnesium (1.7-2.4) mg/dl Total Bilirubin (0.2-1.0) mg/dl Direct Bilirubin (0-0.2) mg/dl AST (13-39) U/L ALT (7-52) U/L Alkaline Phosphatase (34-104) U/L Ammonia (18-72) umol/L Total Creatine Kinase (30-223) U/L Troponin I High Sens (0-20) pg/ml C-Reactive Protein (0-0.5) mg/dl Total Protein (6.0-8.3) gm/dl Albumin (3.4-5.0) gm/dl Globulin (2.5-4.0) gm/dl Albumin/Globulin Ratio (0.9-2) Lipase (11-82) U/L Tumor Marker AFP (<6.1) ng/mL Procalcitonin (0-0.5) ng/ml TSH (0.300-4.500) uIu/ml Urine Color Urine Appearance (Clear) Urine pH (4.5-7.5) Ur Specific Trevor (1.000-1.030) Urine Protein (Negative) Urine Glucose (UA) (Negative) Urine Ketones (Negative) Urine Blood (Negative) Urine Nitrite (Negative) Urine Bilirubin (Negative) Urine Urobilinogen (Negative) Ur Leukocyte Esterase (Negative) Urine WBC (Auto) (0-5) /hpf Urine RBC (Auto) (0-4) /hpf U Hyaline Cast (Auto) (0-5) /lpf U Epithel Cells (Auto) (0-5) /lpf Urine Bacteria (Auto) (Negative) Urine Osmolality (500-800) mOsm/kg Ethyl Alcohol mg/dL (<10.0) mg/dl SARS-CoV-2 (PCR) NEGATIVE (Negative) Hepatitis A IgM Ab NON-REACTIVE (NON-REACTIVE) Hep Bs Antigen NON-REACTIVE (NON-REACTIVE) Hep Bs Ag Confirmation TNP Hep B Core IgM Ab NON-REACTIVE (NON-REACTIVE) Hepatitis C Ab (EIA) NON-REACTIVE (NON-REACTIVE) Influenza Type A (PCR) Negative (Neg) Influenza Type B (PCR) Negative (Neg) RSV (RT-PCR) Negative (Neg) First/Repeat Specimen Gestational Age Estimated Delivery Date Est Date Determined By Maternal Race Maternal Weight Maternal Diabetes Number of Fetuses Maternal Scrn Egg Donor Donor Age or AFP Triple Screen Prev Trisomy 21 Preg Maternal Serum AFP AFP MoM Maternal AFP Interp Family History NTD NTD Risk Assessment Maternal Scrn Comment 06/01/23 06/01/23 06/01/23 Range/Units 18:30 18:30 18:30 WBC (4.8-10.8) K/ul RBC (4.70-6.10) M/uL Hgb (14.0-18.0) g/dl Hct (42.0-52.0) % MCV (80.0-100.0) fL MCH (25.0-34.0) pg MCHC (32.0-36.0) g/dL RDW Std Deviation (36.4-46.3) fL RDW Coeff of Odin (11.5-14.5) % Plt Count (130-400) K/uL MPV (9.4-12.4) fL Immature Gran % (Auto) % Neut % (Auto) % Lymph % (Auto) % [place] % (Auto) % Eos % (Auto) % Baso % (Auto) % Neut # (Auto) (1.40-6.50) K/uL Lymph # (Auto) (1.20-3.40) K/uL [place] # (Auto) (0.11-0.59) K/uL Eos # (Auto) (0.00-0.50) K/uL Baso # (Auto) (0.00-0.20) K/uL Immature Gran # (Auto) (0.01-0.20) K/uL PT (9.0-12.0) Seconds INR (0.9-1.1) APTT (21.0-31.0) Seconds PTT Ratio Sodium (136-145) mmol/L Potassium (3.5-5.1) mmol/L Chloride (98-107) mmol/L Carbon Dioxide (21-32) mmol/L Anion Gap (3-11) BUN (6-23) mg/dl Creatinine (0.6-1.4) mg/dl Est Cr Clr Drug Dosing Est GFR ( Amer) ml/min Est GFR (Non-Af Amer) ml/min BUN/Creatinine Ratio (10-20) Glucose (70-99(Fasting)) mg/dl Osmolality (280-300) mOsm/kg Lactate 3.1 H* (0.4-2.0) mmol/L Calcium (8.6-10.3) mg/dl Magnesium (1.7-2.4) mg/dl Total Bilirubin (0.2-1.0) mg/dl Direct Bilirubin (0-0.2) mg/dl AST (13-39) U/L ALT (7-52) U/L Alkaline Phosphatase (34-104) U/L Ammonia (18-72) umol/L Total Creatine Kinase (30-223) U/L Troponin I High Sens 14.9 (0-20) pg/ml C-Reactive Protein (0-0.5) mg/dl Total Protein (6.0-8.3) gm/dl Albumin (3.4-5.0) gm/dl Globulin (2.5-4.0) gm/dl Albumin/Globulin Ratio (0.9-2) Lipase (11-82) U/L Tumor Marker AFP (<6.1) ng/mL Procalcitonin (0-0.5) ng/ml TSH (0.300-4.500) uIu/ml Urine Color Urine Appearance (Clear) Urine pH (4.5-7.5) Ur Specific Trevor (1.000-1.030) Urine Protein (Negative) Urine Glucose (UA) (Negative) Urine Ketones (Negative) Urine Blood (Negative) Urine Nitrite (Negative) Urine Bilirubin (Negative) Urine Urobilinogen (Negative) Ur Leukocyte Esterase (Negative) Urine WBC (Auto) (0-5) /hpf Urine RBC (Auto) (0-4) /hpf U Hyaline Cast (Auto) (0-5) /lpf U Epithel Cells (Auto) (0-5) /lpf Urine Bacteria (Auto) (Negative) Urine Osmolality (500-800) mOsm/kg Ethyl Alcohol mg/dL < 10.0 (<10.0) mg/dl SARS-CoV-2 (PCR) (Negative) Hepatitis A IgM Ab (NON-REACTIVE) Hep Bs Antigen (NON-REACTIVE) Hep Bs Ag Confirmation Hep B Core IgM Ab (NON-REACTIVE) Hepatitis C Ab (EIA) (NON-REACTIVE) Influenza Type A (PCR) (Neg) Influenza Type B (PCR) (Neg) RSV (RT-PCR) (Neg) First/Repeat Specimen Gestational Age Estimated Delivery Date Est Date Determined By Maternal Race Maternal Weight Maternal Diabetes Number of Fetuses Maternal Scrn Egg Donor Donor Age or AFP Triple Screen Prev Trisomy 21 Preg Maternal Serum AFP AFP MoM Maternal AFP Interp Family History NTD NTD Risk Assessment Maternal Scrn Comment 06/01/23 06/01/23 06/01/23 Range/Units 18:30 18:30 18:30 WBC (4.8-10.8) K/ul RBC (4.70-6.10) M/uL Hgb (14.0-18.0) g/dl Hct (42.0-52.0) % MCV (80.0-100.0) fL MCH (25.0-34.0) pg MCHC (32.0-36.0) g/dL RDW Std Deviation (36.4-46.3) fL RDW Coeff of Odin (11.5-14.5) % Plt Count (130-400) K/uL MPV (9.4-12.4) fL Immature Gran % (Auto) % Neut % (Auto) % Lymph % (Auto) % [place] % (Auto) % Eos % (Auto) % Baso % (Auto) % Neut # (Auto) (1.40-6.50) K/uL Lymph # (Auto) (1.20-3.40) K/uL [place] # (Auto) (0.11-0.59) K/uL Eos # (Auto) (0.00-0.50) K/uL Baso # (Auto) (0.00-0.20) K/uL Immature Gran # (Auto) (0.01-0.20) K/uL PT (9.0-12.0) Seconds INR (0.9-1.1) APTT (21.0-31.0) Seconds PTT Ratio Sodium (136-145) mmol/L Potassium (3.5-5.1) mmol/L Chloride (98-107) mmol/L Carbon Dioxide (21-32) mmol/L Anion Gap (3-11) BUN (6-23) mg/dl Creatinine (0.6-1.4) mg/dl Est Cr Clr Drug Dosing Est GFR ( Amer) ml/min Est GFR (Non-Af Amer) ml/min BUN/Creatinine Ratio (10-20) Glucose (70-99(Fasting)) mg/dl Osmolality (280-300) mOsm/kg Lactate (0.4-2.0) mmol/L Calcium (8.6-10.3) mg/dl Magnesium (1.7-2.4) mg/dl Total Bilirubin (0.2-1.0) mg/dl Direct Bilirubin (0-0.2) mg/dl AST (13-39) U/L ALT (7-52) U/L Alkaline Phosphatase (34-104) U/L Ammonia 29.0 (18-72) umol/L Total Creatine Kinase (30-223) U/L Troponin I High Sens (0-20) pg/ml C-Reactive Protein (0-0.5) mg/dl Total Protein (6.0-8.3) gm/dl Albumin (3.4-5.0) gm/dl Globulin (2.5-4.0) gm/dl Albumin/Globulin Ratio (0.9-2) Lipase (11-82) U/L Tumor Marker AFP (<6.1) ng/mL Procalcitonin 0.87 H (0-0.5) ng/ml TSH 0.659 (0.300-4.500) uIu/ml Urine Color Urine Appearance (Clear) Urine pH (4.5-7.5) Ur Specific Trevor (1.000-1.030) Urine Protein (Negative) Urine Glucose (UA) (Negative) Urine Ketones (Negative) Urine Blood (Negative) Urine Nitrite (Negative) Urine Bilirubin (Negative) Urine Urobilinogen (Negative) Ur Leukocyte Esterase (Negative) Urine WBC (Auto) (0-5) /hpf Urine RBC (Auto) (0-4) /hpf U Hyaline Cast (Auto) (0-5) /lpf U Epithel Cells (Auto) (0-5) /lpf Urine Bacteria (Auto) (Negative) Urine Osmolality (500-800) mOsm/kg Ethyl Alcohol mg/dL (<10.0) mg/dl SARS-CoV-2 (PCR) (Negative) Hepatitis A IgM Ab (NON-REACTIVE) Hep Bs Antigen (NON-REACTIVE) Hep Bs Ag Confirmation Hep B Core IgM Ab (NON-REACTIVE) Hepatitis C Ab (EIA) (NON-REACTIVE) Influenza Type A (PCR) (Neg) Influenza Type B (PCR) (Neg) RSV (RT-PCR) (Neg) First/Repeat Specimen Gestational Age Estimated Delivery Date Est Date Determined By Maternal Race Maternal Weight Maternal Diabetes Number of Fetuses Maternal Scrn Egg Donor Donor Age or AFP Triple Screen Prev Trisomy 21 Preg Maternal Serum AFP AFP MoM Maternal AFP Interp Family History NTD NTD Risk Assessment Maternal Scrn Comment 06/01/23 06/01/23 06/01/23 Range/Units 19:24 19:24 20:26 WBC (4.8-10.8) K/ul RBC (4.70-6.10) M/uL Hgb (14.0-18.0) g/dl Hct (42.0-52.0) % MCV (80.0-100.0) fL MCH (25.0-34.0) pg MCHC (32.0-36.0) g/dL RDW Std Deviation (36.4-46.3) fL RDW Coeff of Odin (11.5-14.5) % Plt Count (130-400) K/uL MPV (9.4-12.4) fL Immature Gran % (Auto) % Neut % (Auto) % Lymph % (Auto) % [place] % (Auto) % Eos % (Auto) % Baso % (Auto) % Neut # (Auto) (1.40-6.50) K/uL Lymph # (Auto) (1.20-3.40) K/uL [place] # (Auto) (0.11-0.59) K/uL Eos # (Auto) (0.00-0.50) K/uL Baso # (Auto) (0.00-0.20) K/uL Immature Gran # (Auto) (0.01-0.20) K/uL PT (9.0-12.0) Seconds INR (0.9-1.1) APTT (21.0-31.0) Seconds PTT Ratio Sodium (136-145) mmol/L Potassium (3.5-5.1) mmol/L Chloride (98-107) mmol/L Carbon Dioxide (21-32) mmol/L Anion Gap (3-11) BUN (6-23) mg/dl Creatinine (0.6-1.4) mg/dl Est Cr Clr Drug Dosing Est GFR ( Amer) ml/min Est GFR (Non-Af Amer) ml/min BUN/Creatinine Ratio (10-20) Glucose (70-99(Fasting)) mg/dl Osmolality (280-300) mOsm/kg Lactate 2.5 H* (0.4-2.0) mmol/L Calcium (8.6-10.3) mg/dl Magnesium (1.7-2.4) mg/dl Total Bilirubin (0.2-1.0) mg/dl Direct Bilirubin (0-0.2) mg/dl AST (13-39) U/L ALT (7-52) U/L Alkaline Phosphatase (34-104) U/L Ammonia (18-72) umol/L Total Creatine Kinase (30-223) U/L Troponin I High Sens (0-20) pg/ml C-Reactive Protein (0-0.5) mg/dl Total Protein (6.0-8.3) gm/dl Albumin (3.4-5.0) gm/dl Globulin (2.5-4.0) gm/dl Albumin/Globulin Ratio (0.9-2) Lipase (11-82) U/L Tumor Marker AFP (<6.1) ng/mL Procalcitonin (0-0.5) ng/ml TSH (0.300-4.500) uIu/ml Urine Color Dark Yellow Urine Appearance Clear (Clear) Urine pH 6.0 (4.5-7.5) Ur Specific Trevor 1.010 (1.000-1.030) Urine Protein Negative (Negative) Urine Glucose (UA) Negative (Negative) Urine Ketones Negative (Negative) Urine Blood Negative (Negative) Urine Nitrite Positive A (Negative) Urine Bilirubin 2+ H (Negative) Urine Urobilinogen Positive H (Negative) Ur Leukocyte Esterase Negative (Negative) Urine WBC (Auto) 1-5 (0-5) /hpf Urine RBC (Auto) 0-4 (0-4) /hpf U Hyaline Cast (Auto) 0 (0-5) /lpf U Epithel Cells (Auto) 0-5 (0-5) /lpf Urine Bacteria (Auto) Negative (Negative) Urine Osmolality 264 L (500-800) mOsm/kg Ethyl Alcohol mg/dL (<10.0) mg/dl SARS-CoV-2 (PCR) (Negative) Hepatitis A IgM Ab (NON-REACTIVE) Hep Bs Antigen (NON-REACTIVE) Hep Bs Ag Confirmation Hep B Core IgM Ab (NON-REACTIVE) Hepatitis C Ab (EIA) (NON-REACTIVE) Influenza Type A (PCR) (Neg) Influenza Type B (PCR) (Neg) RSV (RT-PCR) (Neg) First/Repeat Specimen Gestational Age Estimated Delivery Date Est Date Determined By Maternal Race Maternal Weight Maternal Diabetes Number of Fetuses Maternal Scrn Egg Donor Donor Age or AFP Triple Screen Prev Trisomy 21 Preg Maternal Serum AFP AFP MoM Maternal AFP Interp Family History NTD NTD Risk Assessment Maternal Scrn Comment 06/02/23 06/02/23 06/02/23 Range/Units 04:01 04:01 04:01 WBC 21.77 H (4.8-10.8) K/ul RBC 4.08 L (4.70-6.10) M/uL Hgb 12.1 L (14.0-18.0) g/dl Hct 32.6 L (42.0-52.0) % MCV 79.9 L (80.0-100.0) fL MCH 29.7 (25.0-34.0) pg MCHC 37.1 H (32.0-36.0) g/dL RDW Std Deviation 38.7 (36.4-46.3) fL RDW Coeff of Odin 13.4 (11.5-14.5) % Plt Count 372 (130-400) K/uL MPV 10.1 (9.4-12.4) fL Immature Gran % (Auto) 1.1 % Neut % (Auto) 86.4 % Lymph % (Auto) 5.9 % [place] % (Auto) 6.2 % Eos % (Auto) 0.2 % Baso % (Auto) 0.2 % Neut # (Auto) 18.80 H (1.40-6.50) K/uL Lymph # (Auto) 1.28 (1.20-3.40) K/uL [place] # (Auto) 1.36 H (0.11-0.59) K/uL Eos # (Auto) 0.04 (0.00-0.50) K/uL Baso # (Auto) 0.05 (0.00-0.20) K/uL Immature Gran # (Auto) 0.24 H (0.01-0.20) K/uL PT 12.3 H (9.0-12.0) Seconds INR 1.1 (0.9-1.1) APTT 31.9 H (21.0-31.0) Seconds PTT Ratio 1.1 Sodium 126 L (136-145) mmol/L Potassium 2.8 L (3.5-5.1) mmol/L Chloride 88 L (98-107) mmol/L Carbon Dioxide 30 (21-32) mmol/L Anion Gap 8 (3-11) BUN 7 (6-23) mg/dl Creatinine 0.96 (0.6-1.4) mg/dl Est Cr Clr Drug Dosing 91.6 Est GFR ( Amer) 97.1 ml/min Est GFR (Non-Af Amer) 83.8 ml/min BUN/Creatinine Ratio 7.3 L (10-20) Glucose 105 H (70-99(Fasting)) mg/dl Osmolality (280-300) mOsm/kg Lactate (0.4-2.0) mmol/L Calcium 7.7 L (8.6-10.3) mg/dl Magnesium 1.7 (1.7-2.4) mg/dl Total Bilirubin 8.5 H (0.2-1.0) mg/dl Direct Bilirubin 5.1 H (0-0.2) mg/dl AST 77 H (13-39) U/L ALT 47 (7-52) U/L Alkaline Phosphatase 471 H (34-104) U/L Ammonia (18-72) umol/L Total Creatine Kinase (30-223) U/L Troponin I High Sens (0-20) pg/ml C-Reactive Protein (0-0.5) mg/dl Total Protein 6.2 (6.0-8.3) gm/dl Albumin 2.8 L (3.4-5.0) gm/dl Globulin 3.4 (2.5-4.0) gm/dl Albumin/Globulin Ratio 0.8 L (0.9-2) Lipase (11-82) U/L Tumor Marker AFP (<6.1) ng/mL Procalcitonin (0-0.5) ng/ml TSH (0.300-4.500) uIu/ml Urine Color Urine Appearance (Clear) Urine pH (4.5-7.5) Ur Specific Trevor (1.000-1.030) Urine Protein (Negative) Urine Glucose (UA) (Negative) Urine Ketones (Negative) Urine Blood (Negative) Urine Nitrite (Negative) Urine Bilirubin (Negative) Urine Urobilinogen (Negative) Ur Leukocyte Esterase (Negative) Urine WBC (Auto) (0-5) /hpf Urine RBC (Auto) (0-4) /hpf U Hyaline Cast (Auto) (0-5) /lpf U Epithel Cells (Auto) (0-5) /lpf Urine Bacteria (Auto) (Negative) Urine Osmolality (500-800) mOsm/kg Ethyl Alcohol mg/dL (<10.0) mg/dl SARS-CoV-2 (PCR) (Negative) Hepatitis A IgM Ab (NON-REACTIVE) Hep Bs Antigen (NON-REACTIVE) Hep Bs Ag Confirmation Hep B Core IgM Ab (NON-REACTIVE) Hepatitis C Ab (EIA) (NON-REACTIVE) Influenza Type A (PCR) (Neg) Influenza Type B (PCR) (Neg) RSV (RT-PCR) (Neg) First/Repeat Specimen Gestational Age Estimated Delivery Date Est Date Determined By Maternal Race Maternal Weight Maternal Diabetes Number of Fetuses Maternal Scrn Egg Donor Donor Age or AFP Triple Screen Prev Trisomy 21 Preg Maternal Serum AFP AFP MoM Maternal AFP Interp Family History NTD NTD Risk Assessment Maternal Scrn Comment 06/03/23 06/03/23 06/03/23 Range/Units 08:24 08:24 08:24 WBC 18.52 H (4.8-10.8) K/ul RBC 4.03 L (4.70-6.10) M/uL Hgb 12.0 L (14.0-18.0) g/dl Hct 33.7 L (42.0-52.0) % MCV 83.6 (80.0-100.0) fL MCH 29.8 (25.0-34.0) pg MCHC 35.6 (32.0-36.0) g/dL RDW Std Deviation 41.4 (36.4-46.3) fL RDW Coeff of Odin 13.6 (11.5-14.5) % Plt Count 459 H (130-400) K/uL MPV 9.9 (9.4-12.4) fL Immature Gran % (Auto) 1.5 % Neut % (Auto) 80.1 % Lymph % (Auto) 10.1 % [place] % (Auto) 6.8 % Eos % (Auto) 1.2 % Baso % (Auto) 0.3 % Neut # (Auto) 14.83 H (1.40-6.50) K/uL Lymph # (Auto) 1.87 (1.20-3.40) K/uL [place] # (Auto) 1.26 H (0.11-0.59) K/uL Eos # (Auto) 0.22 (0.00-0.50) K/uL Baso # (Auto) 0.06 (0.00-0.20) K/uL Immature Gran # (Auto) 0.28 H (0.01-0.20) K/uL PT (9.0-12.0) Seconds INR (0.9-1.1) APTT (21.0-31.0) Seconds PTT Ratio Sodium 129 L (136-145) mmol/L Potassium 3.5 D (3.5-5.1) mmol/L Chloride 91 L (98-107) mmol/L Carbon Dioxide 32 (21-32) mmol/L Anion Gap 6 (3-11) BUN 8 (6-23) mg/dl Creatinine 0.95 (0.6-1.4) mg/dl Est Cr Clr Drug Dosing 92.5 Est GFR ( Amer) 98.3 ml/min Est GFR (Non-Af Amer) 84.9 ml/min BUN/Creatinine Ratio 8.4 L (10-20) Glucose 93 (70-99(Fasting)) mg/dl Osmolality (280-300) mOsm/kg Lactate (0.4-2.0) mmol/L Calcium 8.2 L (8.6-10.3) mg/dl Magnesium 1.9 (1.7-2.4) mg/dl Total Bilirubin 4.3 H (0.2-1.0) mg/dl Direct Bilirubin (0-0.2) mg/dl AST 36 (13-39) U/L ALT 32 (7-52) U/L Alkaline Phosphatase 387 H (34-104) U/L Ammonia (18-72) umol/L Total Creatine Kinase (30-223) U/L Troponin I High Sens (0-20) pg/ml C-Reactive Protein (0-0.5) mg/dl Total Protein 6.6 (6.0-8.3) gm/dl Albumin 2.9 L (3.4-5.0) gm/dl Globulin 3.7 (2.5-4.0) gm/dl Albumin/Globulin Ratio 0.8 L (0.9-2) Lipase (11-82) U/L Tumor Marker AFP 1.7 (<6.1) ng/mL Procalcitonin (0-0.5) ng/ml TSH (0.300-4.500) uIu/ml Urine Color Urine Appearance (Clear) Urine pH (4.5-7.5) Ur Specific Trevor (1.000-1.030) Urine Protein (Negative) Urine Glucose (UA) (Negative) Urine Ketones (Negative) Urine Blood (Negative) Urine Nitrite (Negative) Urine Bilirubin (Negative) Urine Urobilinogen (Negative) Ur Leukocyte Esterase (Negative) Urine WBC (Auto) (0-5) /hpf Urine RBC (Auto) (0-4) /hpf U Hyaline Cast (Auto) (0-5) /lpf U Epithel Cells (Auto) (0-5) /lpf Urine Bacteria (Auto) (Negative) Urine Osmolality (500-800) mOsm/kg Ethyl Alcohol mg/dL (<10.0) mg/dl SARS-CoV-2 (PCR) (Negative) Hepatitis A IgM Ab (NON-REACTIVE) Hep Bs Antigen (NON-REACTIVE) Hep Bs Ag Confirmation Hep B Core IgM Ab (NON-REACTIVE) Hepatitis C Ab (EIA) (NON-REACTIVE) Influenza Type A (PCR) (Neg) Influenza Type B (PCR) (Neg) RSV (RT-PCR) (Neg) First/Repeat Specimen Cancelled Gestational Age Cancelled Estimated Delivery Date Cancelled Est Date Determined By Cancelled Maternal Race Cancelled Maternal Weight Cancelled Maternal Diabetes Cancelled Number of Fetuses Cancelled Maternal Scrn Egg Donor Cancelled Donor Age or Cancelled AFP Triple Screen Cancelled Prev Trisomy 21 Preg Cancelled Maternal Serum AFP Cancelled AFP MoM Cancelled Maternal AFP Interp Cancelled Family History NTD Cancelled NTD Risk Assessment Cancelled Maternal Scrn Comment Cancelled 06/03/23 06/04/23 06/04/23 Range/Units 08:25 08:17 08:17 WBC 13.37 H (4.8-10.8) K/ul RBC 4.14 L (4.70-6.10) M/uL Hgb 12.2 L (14.0-18.0) g/dl Hct 34.6 L (42.0-52.0) % MCV 83.6 (80.0-100.0) fL MCH 29.5 (25.0-34.0) pg MCHC 35.3 (32.0-36.0) g/dL RDW Std Deviation 42.4 (36.4-46.3) fL RDW Coeff of Odin 13.8 (11.5-14.5) % Plt Count 498 H (130-400) K/uL MPV 9.5 (9.4-12.4) fL Immature Gran % (Auto) 0.8 % Neut % (Auto) 88.4 % Lymph % (Auto) 9.4 % [place] % (Auto) 1.3 % Eos % (Auto) 0.0 % Baso % (Auto) 0.1 % Neut # (Auto) 11.81 H (1.40-6.50) K/uL Lymph # (Auto) 1.26 (1.20-3.40) K/uL [place] # (Auto) 0.17 (0.11-0.59) K/uL Eos # (Auto) 0.00 (0.00-0.50) K/uL Baso # (Auto) 0.02 (0.00-0.20) K/uL Immature Gran # (Auto) 0.11 (0.01-0.20) K/uL PT 11.9 11.6 (9.0-12.0) Seconds INR 1.1 1.1 (0.9-1.1) APTT 32.5 H 32.0 H (21.0-31.0) Seconds PTT Ratio 1.2 1.1 Sodium (136-145) mmol/L Potassium (3.5-5.1) mmol/L Chloride (98-107) mmol/L Carbon Dioxide (21-32) mmol/L Anion Gap (3-11) BUN (6-23) mg/dl Creatinine (0.6-1.4) mg/dl Est Cr Clr Drug Dosing Est GFR ( Amer) ml/min Est GFR (Non-Af Amer) ml/min BUN/Creatinine Ratio (10-20) Glucose (70-99(Fasting)) mg/dl Osmolality (280-300) mOsm/kg Lactate (0.4-2.0) mmol/L Calcium (8.6-10.3) mg/dl Magnesium (1.7-2.4) mg/dl Total Bilirubin (0.2-1.0) mg/dl Direct Bilirubin (0-0.2) mg/dl AST (13-39) U/L ALT (7-52) U/L Alkaline Phosphatase (34-104) U/L Ammonia (18-72) umol/L Total Creatine Kinase (30-223) U/L Troponin I High Sens (0-20) pg/ml C-Reactive Protein (0-0.5) mg/dl Total Protein (6.0-8.3) gm/dl Albumin (3.4-5.0) gm/dl Globulin (2.5-4.0) gm/dl Albumin/Globulin Ratio (0.9-2) Lipase (11-82) U/L Tumor Marker AFP (<6.1) ng/mL Procalcitonin (0-0.5) ng/ml TSH (0.300-4.500) uIu/ml Urine Color Urine Appearance (Clear) Urine pH (4.5-7.5) Ur Specific Trevor (1.000-1.030) Urine Protein (Negative) Urine Glucose (UA) (Negative) Urine Ketones (Negative) Urine Blood (Negative) Urine Nitrite (Negative) Urine Bilirubin (Negative) Urine Urobilinogen (Negative) Ur Leukocyte Esterase (Negative) Urine WBC (Auto) (0-5) /hpf Urine RBC (Auto) (0-4) /hpf U Hyaline Cast (Auto) (0-5) /lpf U Epithel Cells (Auto) (0-5) /lpf Urine Bacteria (Auto) (Negative) Urine Osmolality (500-800) mOsm/kg Ethyl Alcohol mg/dL (<10.0) mg/dl SARS-CoV-2 (PCR) (Negative) Hepatitis A IgM Ab (NON-REACTIVE) Hep Bs Antigen (NON-REACTIVE) Hep Bs Ag Confirmation Hep B Core IgM Ab (NON-REACTIVE) Hepatitis C Ab (EIA) (NON-REACTIVE) Influenza Type A (PCR) (Neg) Influenza Type B (PCR) (Neg) RSV (RT-PCR) (Neg) First/Repeat Specimen Gestational Age Estimated Delivery Date Est Date Determined By Maternal Race Maternal Weight Maternal Diabetes Number of Fetuses Maternal Scrn Egg Donor Donor Age or AFP Triple Screen Prev Trisomy 21 Preg Maternal Serum AFP AFP MoM Maternal AFP Interp Family History NTD NTD Risk Assessment Maternal Scrn Comment 06/04/23 06/06/23 06/06/23 Range/Units 08:17 06:07 06:07 WBC 14.30 H (4.8-10.8) K/ul RBC 3.45 L (4.70-6.10) M/uL Hgb 10.1 L (14.0-18.0) g/dl Hct 29.6 L (42.0-52.0) % MCV 85.8 (80.0-100.0) fL MCH 29.3 (25.0-34.0) pg MCHC 34.1 (32.0-36.0) g/dL RDW Std Deviation 43.9 (36.4-46.3) fL RDW Coeff of Odin 14.2 (11.5-14.5) % Plt Count 574 H (130-400) K/uL MPV 9.8 (9.4-12.4) fL Immature Gran % (Auto) 0.7 % Neut % (Auto) 80.2 % Lymph % (Auto) 12.0 % [place] % (Auto) 6.9 % Eos % (Auto) 0.1 % Baso % (Auto) 0.1 % Neut # (Auto) 11.48 H (1.40-6.50) K/uL Lymph # (Auto) 1.71 (1.20-3.40) K/uL [place] # (Auto) 0.99 H (0.11-0.59) K/uL Eos # (Auto) 0.01 (0.00-0.50) K/uL Baso # (Auto) 0.01 (0.00-0.20) K/uL Immature Gran # (Auto) 0.10 (0.01-0.20) K/uL PT (9.0-12.0) Seconds INR (0.9-1.1) APTT (21.0-31.0) Seconds PTT Ratio Sodium 132 L 135 L (136-145) mmol/L Potassium 3.5 3.9 (3.5-5.1) mmol/L Chloride 93 L 99 (98-107) mmol/L Carbon Dioxide 31 30 (21-32) mmol/L Anion Gap 8 6 (3-11) BUN 9 9 (6-23) mg/dl Creatinine 0.80 0.81 (0.6-1.4) mg/dl Est Cr Clr Drug Dosing 108.3 108.5 Est GFR ( Amer) 110.2 109.6 ml/min Est GFR (Non-Af Amer) 95.1 94.6 ml/min BUN/Creatinine Ratio 11.3 11.1 (10-20) Glucose 145 H 96 (70-99(Fasting)) mg/dl Osmolality (280-300) mOsm/kg Lactate (0.4-2.0) mmol/L Calcium 8.5 L 7.7 L (8.6-10.3) mg/dl Magnesium 2.3 (1.7-2.4) mg/dl Total Bilirubin 2.7 H 1.8 H (0.2-1.0) mg/dl Direct Bilirubin 0.6 H (0-0.2) mg/dl AST 23 35 (13-39) U/L ALT 26 28 (7-52) U/L Alkaline Phosphatase 343 H 209 H (34-104) U/L Ammonia (18-72) umol/L Total Creatine Kinase (30-223) U/L Troponin I High Sens (0-20) pg/ml C-Reactive Protein (0-0.5) mg/dl Total Protein 7.3 5.9 L (6.0-8.3) gm/dl Albumin 3.1 L 2.6 L (3.4-5.0) gm/dl Globulin 4.2 H (2.5-4.0) gm/dl Albumin/Globulin Ratio 0.7 L (0.9-2) Lipase (11-82) U/L Tumor Marker AFP (<6.1) ng/mL Procalcitonin (0-0.5) ng/ml TSH (0.300-4.500) uIu/ml Urine Color Urine Appearance (Clear) Urine pH (4.5-7.5) Ur Specific Trevor (1.000-1.030) Urine Protein (Negative) Urine Glucose (UA) (Negative) Urine Ketones (Negative) Urine Blood (Negative) Urine Nitrite (Negative) Urine Bilirubin (Negative) Urine Urobilinogen (Negative) Ur Leukocyte Esterase (Negative) Urine WBC (Auto) (0-5) /hpf Urine RBC (Auto) (0-4) /hpf U Hyaline Cast (Auto) (0-5) /lpf U Epithel Cells (Auto) (0-5) /lpf Urine Bacteria (Auto) (Negative) Urine Osmolality (500-800) mOsm/kg Ethyl Alcohol mg/dL (<10.0) mg/dl SARS-CoV-2 (PCR) (Negative) Hepatitis A IgM Ab (NON-REACTIVE) Hep Bs Antigen (NON-REACTIVE) Hep Bs Ag Confirmation Hep B Core IgM Ab (NON-REACTIVE) Hepatitis C Ab (EIA) (NON-REACTIVE) Influenza Type A (PCR) (Neg) Influenza Type B (PCR) (Neg) RSV (RT-PCR) (Neg) First/Repeat Specimen Gestational Age Estimated Delivery Date Est Date Determined By Maternal Race Maternal Weight Maternal Diabetes Number of Fetuses Maternal Scrn Egg Donor Donor Age or AFP Triple Screen Prev Trisomy 21 Preg Maternal Serum AFP AFP MoM Maternal AFP Interp Family History NTD NTD Risk Assessment Maternal Scrn Comment 06/07/23 06/07/23 Range/Units 07:34 07:34 WBC 11.99 H (4.8-10.8) K/ul RBC 3.62 L (4.70-6.10) M/uL Hgb 10.6 L (14.0-18.0) g/dl Hct 30.6 L (42.0-52.0) % MCV 84.5 (80.0-100.0) fL MCH 29.3 (25.0-34.0) pg MCHC 34.6 (32.0-36.0) g/dL RDW Std Deviation 44.8 (36.4-46.3) fL RDW Coeff of Odin 14.6 H (11.5-14.5) % Plt Count 566 H (130-400) K/uL MPV 9.6 (9.4-12.4) fL Immature Gran % (Auto) % Neut % (Auto) % Lymph % (Auto) % [place] % (Auto) % Eos % (Auto) % Baso % (Auto) % Neut # (Auto) (1.40-6.50) K/uL Lymph # (Auto) (1.20-3.40) K/uL [place] # (Auto) (0.11-0.59) K/uL Eos # (Auto) (0.00-0.50) K/uL Baso # (Auto) (0.00-0.20) K/uL Immature Gran # (Auto) (0.01-0.20) K/uL PT (9.0-12.0) Seconds INR (0.9-1.1) APTT (21.0-31.0) Seconds PTT Ratio Sodium 134 L (136-145) mmol/L Potassium 3.4 L (3.5-5.1) mmol/L Chloride 99 (98-107) mmol/L Carbon Dioxide 30 (21-32) mmol/L Anion Gap 5 (3-11) BUN 6 (6-23) mg/dl Creatinine 0.78 (0.6-1.4) mg/dl Est Cr Clr Drug Dosing 111.1 Est GFR ( Amer) 111.3 ml/min Est GFR (Non-Af Amer) 96.1 ml/min BUN/Creatinine Ratio 7.7 L (10-20) Glucose 90 (70-99(Fasting)) mg/dl Osmolality (280-300) mOsm/kg Lactate (0.4-2.0) mmol/L Calcium 7.9 L (8.6-10.3) mg/dl Magnesium (1.7-2.4) mg/dl Total Bilirubin (0.2-1.0) mg/dl Direct Bilirubin (0-0.2) mg/dl AST (13-39) U/L ALT (7-52) U/L Alkaline Phosphatase (34-104) U/L Ammonia (18-72) umol/L Total Creatine Kinase 13 L (30-223) U/L Troponin I High Sens (0-20) pg/ml C-Reactive Protein 12.50 H (0-0.5) mg/dl Total Protein (6.0-8.3) gm/dl Albumin (3.4-5.0) gm/dl Globulin (2.5-4.0) gm/dl Albumin/Globulin Ratio (0.9-2) Lipase (11-82) U/L Tumor Marker AFP (<6.1) ng/mL Procalcitonin (0-0.5) ng/ml TSH (0.300-4.500) uIu/ml Urine Color Urine Appearance (Clear) Urine pH (4.5-7.5) Ur Specific Trevor (1.000-1.030) Urine Protein (Negative) Urine Glucose (UA) (Negative) Urine Ketones (Negative) Urine Blood (Negative) Urine Nitrite (Negative) Urine Bilirubin (Negative) Urine Urobilinogen (Negative) Ur Leukocyte Esterase (Negative) Urine WBC (Auto) (0-5) /hpf Urine RBC (Auto) (0-4) /hpf U Hyaline Cast (Auto) (0-5) /lpf U Epithel Cells (Auto) (0-5) /lpf Urine Bacteria (Auto) (Negative) Urine Osmolality (500-800) mOsm/kg Ethyl Alcohol mg/dL (<10.0) mg/dl SARS-CoV-2 (PCR) (Negative) Hepatitis A IgM Ab (NON-REACTIVE) Hep Bs Antigen (NON-REACTIVE) Hep Bs Ag Confirmation Hep B Core IgM Ab (NON-REACTIVE) Hepatitis C Ab (EIA) (NON-REACTIVE) Influenza Type A (PCR) (Neg) Influenza Type B (PCR) (Neg) RSV (RT-PCR) (Neg) First/Repeat Specimen Gestational Age Estimated Delivery Date Est Date Determined By Maternal Race Maternal Weight Maternal Diabetes Number of Fetuses Maternal Scrn Egg Donor Donor Age or AFP Triple Screen Prev Trisomy 21 Preg Maternal Serum AFP AFP MoM Maternal AFP Interp Family History NTD NTD Risk Assessment Maternal Scrn Comment
[2023-06-07] MEDS: AMPICILLIN 2,000 MG in SODIUM CHLORIDE 0.9% 50 ML IV SCH (20:35)
--- NOTE | 2023-06-07 22:07 | Hospitalist Progress Note ---
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 CT scan of abdomen and pelvis with IV contrast shows a cystic lesion in the anterior aspect of the left hepatic lobe measuring 6.5 x 4.1 cm, There was also noted cholelithiasis and mild gallbladder wall thickening Ultrasound of gallbladder shows a right hepatic cystic lesion measuring 5.6 x 4.1 x 4.4 cm, MRCP's suggest this is from distal common bile duct stone scheduled ERCP in the afternoon of 06/04, 2 stones removed, sphincterotomy, performed, for cholecystectomy 06/05 AFP is sent does have leukocytosis continues to be on Zosyn liver abscess shown on imagng. Gram stain does show pansensitive E. coli and E. faecalis Drain in subhepatic space and into the abscess Leave drain in place Transitioned antibiotics to ampicilling (2) Acute hyponatremia: Plan: Hyponatremia/hypokalemia/hypoosmolality- Looks to be a primary process of polydipsia fluid restrict with some improvement of sodium to 129 continue to follow replete other electrolytes Sodium has improved to 132. (3) Hypertension: Plan: Hypertension- Continue metoprolol tartrate 50 mg p.o. 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 every 12 hours previous alcohol will have pT/OT once recovers thiamine in 2021 was normal Admission and Anticipated Discharge Date Admission Date: June 01, 2023 Subjective Patient reports no new symptoms. Review of Systems Review of Systems: All systems reviewed & are unremarkable except as noted in HPI & below Physical Exam Physical Exam: Patient is jaundiced and icteric Card exam is regular lungs are clear, sharron drain: serosanguineous fluid Extremities are with trace edema Results & Data Results & Data Vital Signs (Past 12 Hours) Vital Signs Temp Pulse Pulse Resp BP Pulse Ox Pulse Ox 06/07/23 19:16 36.3 C L 80 18 148/92 H 92 06/07/23 19:37 73 06/07/23 11:15 94 06/07/23 15:42 36.6 C 68 16 145/86 H 91 06/07/23 11:45 67 06/07/23 11:18 36.5 C 62 18 139/86 94 O2 Del Method O2 Del Method 06/07/23 19:16 Room Air 06/07/23 19:37 06/07/23 11:15 Room Air 06/07/23 15:42 Room Air 06/07/23 11:45 06/07/23 11:18 Room Air PG Care Time/CCT Total # of Minutes Spent Total Time Spent with Patient: Total time spent is greater than 50% in coordination of care (as documented) at patient's floor/unit and/or counseling patient: Coding Level of Care Code 53143 SUB INP/OBS CARE 2/35MIN Diagnoses Total bilirubin, elevated R17 Acute hyponatremia E87.1 Hypertension I10 Cerebellar ataxia G11.9
[2023-06-08] MEDS: LACTATED RINGER'S 1,000 ML IV SCH ×3 (01:39→23:53)
[2023-06-08] MEDS: AMPICILLIN 2,000 MG in SODIUM CHLORIDE 0.9% 50 ML IV SCH ×3 (01:43→08:11)
[2023-06-08 06:40] LABS: Hematocrit (blood only) 31.5 % (42.0-52.0); Hemoglobin 10.5 g/dl (14.0-18.0); Mean Corpuscular Hemoglobin 29.1 pg (25.0-34.0); Mean Corpuscular Hgb Conc 33.3 g/dL (32.0-36.0); Mean Corpuscular Volume 87.3 fL (80.0-100.0); Mean Platelet Volume 9.6 fL (9.4-12.4); Platelet Count 566 K/uL (130-400); RDW Coefficient of Variation 14.3 % (11.5-14.5); RDW Standard Deviation 45.6 fL (36.4-46.3); Red Blood Count 3.61 M/uL (4.70-6.10); White Blood Count 11.81 K/ul (4.8-10.8)
[2023-06-08 06:51] LABS: Albumin Level 2.6 gm/dl (3.4-5.0); BUN Creatinine Ratio 8.3 (10-20); Bilirubin Direct 0.6 mg/dl (0-0.2); Bilirubin,Total 1.6 mg/dl (0.2-1.0); Calcium 7.9 mg/dl (8.6-10.3); Creatinine Clr Calc Pharmacy 122.1 ml/min; Est GFR (African American) 115.1 ml/min; Est GFR (Non-African American) 99.3 ml/min; Potassium 3.3 mmol/L (3.5-5.1); Total Protein 6.1 gm/dl (6.0-8.3)
[2023-06-08] MEDS: PANTOprazole 40 MG TAB PO SCH ×2 (08:11→20:41)
[2023-06-08] MEDS: levETIRAcetam 500 MG TAB PO SCH ×2 (08:11→20:40)
[2023-06-08] MEDS: METOPROLOL TARTRATE 50 MG TAB PO SCH ×2 (08:11→20:40)
[2023-06-08] MEDS: AMPICILLIN 2,000 MG in 0.9 % SODIUM CHLORIDE 100 ML IV SCH ×3 (12:04→20:47)
--- NOTE | 2023-06-08 13:31 | Surgery Progress Note ---
Date of Service June 08, 2023 Assessment & Plan (1) Status post laparoscopic cholecystectomy: Plan: 06/07/2023 4:[address] stafford, F/U S/P lap poncho, drainage liver abscess, POD 2, pt is doing better, tolerated diet, no fever, ELIO 80 ml. ID consulted add on Daptomycin. plan, continue iv antibiotic, will F/U. 06/08/2023 1:[address] stafford, F/U S/P lap poncho, drainage liver abscess, POD 3, pt is doing better, tolerated diet, no fever, ELIO 45 ml. ID consulted add on Daptomycin. plan, continue iv antibiotic, possible D/C home tomorrow, pt agreed with the plan, will F/U. Admission and Anticipated Discharge Date Admission Date: June 01, 2023 Supervising Physician Co-Signing Physician Notes I personally saw and evaluated the patient on 06/04/2023 with PHILIP Chapman and agree with her findings and plan of care. 62 y/o M admitted with abdominal pain, jaundice, and abnormal LFTs found to have choledocholithiasis on imaging. he underwent ERCP 06/03 with choledocholithiasis removal and also noted to have cholangitis. he had 2 stents placed. Today his LFTs have significantly improved and are down trending. He denies any abdominal pain or symptoms and feels well. He reports he is getting a cholecystectomy tomorrow. On exam he has very mild scleral icterus. Abdomen is soft and non- tender. He will need a repeat ERCP in 6-8 weeks for stent removal which he will arrange as outpatient. Continue IV abx while admitted and switch to cipro/flagyl on discharge for a total of 2 weeks of antibiotic coverage. Avoid NSAIDS or high dose asa for 1 week after sphincterotomy. Trend daily LFTs while admitted. Agree with cholecystectomy prior to discharge. GI will sign off but please call back with questions. Rehana Encinas, Gastroenterology and Hepatology Subjective Patient reports no new symptoms. 06/07/2023 4:[address] stafford, F/U S/P lap poncho, drainage liver abscess, POD 2, pt is doing better, tolerated diet, no fever, ELIO 80 ml. ID consulted add on Daptomycin. 06/08/2023 1:[address] Stafford, F/U S/P lap poncho, drainage liver abscess, POD 3, pt is doing better, tolerated diet, no fever, ELIO 45 ml. ID consulted add on Daptomycin. Physical Exam Constitutional: WD/WN, vitals as above Eyes: PERRL, conjunctivae normal, anicteric sclerae Neck: trachea midline, no thyromegaly Respiratory: normal respiratory effort, lungs clear to auscultation Cardiovascular: RRR, no murmur, no edema Gastrointestinal (Abdomen): soft, NT, ND all incisions intact, no redness, BS +. ELIO intact. Neurologic: patellar DTR's 2+ bilat, sensation intact Psychiatric: A+Ox3, euthymic affect Results & Data Vital Signs (Past 12 Hours) Vital Signs Temp Pulse Pulse Resp BP Pulse Ox Pulse Ox 06/08/23 12:31 36.4 C L 70 16 137/86 93 06/08/23 12:27 06/08/23 12:24 92 06/08/23 07:28 36.8 C 67 16 168/98 H 92 06/08/23 07:18 64 06/08/23 02:52 37 C 66 16 139/84 91 O2 Del Method O2 Del Method 06/08/23 12:31 Room Air 06/08/23 12:27 Room Air 06/08/23 12:24 Room Air 06/08/23 07:28 Room Air 06/08/23 07:18 06/08/23 02:52 Room Air Laboratory Results Abnormal lab results 06/08/23 06/08/23 Range/Units 05:56 05:56 WBC 11.81 H (4.8-10.8) K/ul RBC 3.61 L (4.70-6.10) M/uL Hgb 10.5 L (14.0-18.0) g/dl Hct 31.5 L (42.0-52.0) % Plt Count 566 H (130-400) K/uL Sodium 133 L (136-145) mmol/L Potassium 3.3 L (3.5-5.1) mmol/L BUN/Creatinine Ratio 8.3 L (10-20) Calcium 7.9 L (8.6-10.3) mg/dl Total Bilirubin 1.6 H (0.2-1.0) mg/dl Direct Bilirubin 0.6 H (0-0.2) mg/dl Alkaline Phosphatase 158 H (34-104) U/L Albumin 2.6 L (3.4-5.0) gm/dl
--- NOTE | 2023-06-08 22:10 | Hospitalist Progress Note ---
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 CT scan of abdomen and pelvis with IV contrast shows a cystic lesion in the anterior aspect of the left hepatic lobe measuring 6.5 x 4.1 cm, There was also noted cholelithiasis and mild gallbladder wall thickening Ultrasound of gallbladder shows a right hepatic cystic lesion measuring 5.6 x 4.1 x 4.4 cm, MRCP's suggest this is from distal common bile duct stone scheduled ERCP in the afternoon of 06/04, 2 stones removed, sphincterotomy, performed, for cholecystectomy 06/05 AFP is sent does have leukocytosis continues to be on Zosyn liver abscess shown on imagng. Gram stain does show pansensitive E. coli and E. faecalis Drain in subhepatic space and into the abscess Leave drain in place Transitioned antibiotics to ampicillin WIll discuss case with ID on 06/09 to further establish discharge plan. (2) Acute hyponatremia: Plan: Hyponatremia/hypokalemia/hypoosmolality- Looks to be a primary process of polydipsia fluid restrict with some improvement of sodium to 129 continue to follow replete other electrolytes Sodium has improved to 132. (3) Hypertension: Plan: Hypertension- Continue metoprolol tartrate 50 mg p.o. 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 every 12 hours previous alcohol will have pT/OT once recovers thiamine in 2021 was normal Admission and Anticipated Discharge Date Admission Date: June 01, 2023 Subjective Patient reports no new symptoms. Review of Systems Review of Systems: All systems reviewed & are unremarkable except as noted in HPI & below Physical Exam Physical Exam: Patient is resting comfortably. Card exam is regular lungs are clear, sharron drain: serosanguineous fluid Extremities are with trace edema Results & Data Results & Data Vital Signs (Past 12 Hours) Vital Signs Temp Pulse Pulse Resp BP Pulse Ox Pulse Ox 06/08/23 21:21 36.7 C 70 18 161/93 H 93 06/08/23 16:24 36.4 C L 76 18 148/86 H 92 06/08/23 14:56 68 06/08/23 12:31 36.4 C L 70 16 137/86 93 06/08/23 12:27 06/08/23 12:24 92 O2 Del Method O2 Del Method 06/08/23 21:21 Room Air 06/08/23 16:24 Room Air 06/08/23 14:56 06/08/23 12:31 Room Air 06/08/23 12:27 Room Air 06/08/23 12:24 Room Air PG Care Time/CCT Total # of Minutes Spent Total Time Spent with Patient: Total time spent is greater than 50% in coordination of care (as documented) at patient's floor/unit and/or counseling patient: Coding Level of Care Code 31170 SUB INP/OBS CARE 2/35MIN Diagnoses Total bilirubin, elevated R17 Acute hyponatremia E87.1 Hypertension I10 Cerebellar ataxia G11.9
[2023-06-09] MEDS: AMPICILLIN 2,000 MG in 0.9 % SODIUM CHLORIDE 100 ML IV SCH ×5 (00:47→17:05)
[2023-06-09 07:48] LABS: Hematocrit (blood only) 30.6 % (42.0-52.0); Hemoglobin 10.5 g/dl (14.0-18.0); Mean Corpuscular Hemoglobin 29.4 pg (25.0-34.0); Mean Corpuscular Hgb Conc 34.3 g/dL (32.0-36.0); Mean Corpuscular Volume 85.7 fL (80.0-100.0); Mean Platelet Volume 9.7 fL (9.4-12.4); Platelet Count 617 K/uL (130-400); RDW Coefficient of Variation 14.4 % (11.5-14.5); RDW Standard Deviation 45.2 fL (36.4-46.3); Red Blood Count 3.57 M/uL (4.70-6.10); White Blood Count 10.72 K/ul (4.8-10.8)
[2023-06-09 08:01] LABS: BUN Creatinine Ratio 7.6 (10-20); C Reactive Protein 14.71 mg/dl (0-0.5); Est GFR (African American) 110.8 ml/min; Est GFR (Non-African American) 95.6 ml/min; Potassium 3.6 mmol/L (3.5-5.1)
[2023-06-09] MEDS: PANTOprazole 40 MG TAB PO SCH (09:14)
[2023-06-09] MEDS: levETIRAcetam 500 MG TAB PO SCH (09:14)
[2023-06-09] MEDS: METOPROLOL TARTRATE 50 MG TAB PO SCH (09:15)
--- NOTE | 2023-06-09 09:18 | Surgery Progress Note ---
Date of Service June 09, 2023 Assessment & Plan (1) Status post laparoscopic cholecystectomy: Plan: POD 4 patient is doing well from a surgical stand point tolerating reg diet post operative pain tolerable WBC 10.7 ID was consulted for antibiotic recs given abscess, ELIO drain in place draining serosanguineous fluid Admission and Anticipated Discharge Date Admission Date: June 01, 2023 Supervising Physician Co-Signing Physician Notes Patient seen and examined, labs and imaging reviewed, agree with above. Status post laparoscopic cholecystectomy and laparoscopic drainage of hepatic abscess following ERCP for cholangitis and choledocholithiasis. Overall he is feeling much better, pain significantly improved. He is tolerating diet. He is on antibiotics. ID is following and added on daptomycin last week. His final cultures have grown back pansensitive E. coli and Enterococcus faecium. On exam he is afebrile stable vitals, abdomen soft, nontender. Incisions without infection. ELIO serosanguineous. WBC normalized. LFTs and normalizing. At this point we will await final recommendations for antibiotic coverage and duration for the hepatic abscess and the cholangitis from ID. We will keep the drain in for another week or 2 given the history of the hepatic abscess. He is okay to discharge to home from a general surgery standpoint. He should follow-up with me early next week for drain removal. Wound care instructions, activity restrictions, return precautions given. Surgery will follow, call with questions or concerns Subjective Patient reports is he feeling good Denies N/V, Cp, SOB. Passing flatus and having BMs. tolerating reg diet Review of Systems Constitutional: no fever, no chills and no sweats Respiratory: no dyspnea Cardiovascular: no chest pain Gastrointestinal: + abdominal pain (incisional pain with coughing, tolerable ); no nausea and no vomiting Genitourinary: no problem reported Physical Exam Constitutional: well developed, cooperative and comfortable Respiratory: normal respiratory effort; no respiratory distress Cardiovascular: Rate/Rhythm: + bradycardic (57) Gastrointestinal (Abdomen): Inspection/Auscultation: + abdominal surgical incision and + abdominal surgical drain present; abdomen not distended Percussion/Palpation: abdomen soft; no guarding post operative port sites covered with dermabond, EILO drain site covered with gauze and tape no s/s of infection noted, draining serosang fluid, 30/30 (12h/24h) output . Results & Data Vital Signs (Past 12 Hours) Vital Signs Temp Pulse Pulse Resp BP Pulse Ox O2 Del Method 06/09/23 07:25 98.1 F 58 L 16 148/84 H 93 Room Air 06/09/23 07:21 60 06/09/23 02:52 98.1 F 67 16 143/92 H 92 Room Air 06/09/23 01:34 66 06/08/23 23:11 98.1 F 62 18 141/86 H 94 Room Air 06/08/23 21:21 98.1 F 70 18 161/93 H 93 Room Air PG Care Time/CCT Total # of Minutes Spent Total Time Spent with Patient: Total time spent is greater than 50% in coordination of care (as documented) at patient's floor/unit and/or counseling patient: Coding Level of Care Code 72057 Post Operative Follow-Up Diagnoses Status post laparoscopic cholecystectomy Z90.49
--- NOTE | 2023-06-09 13:36 | Infectious Disease Progress Nt ---
Date of Service June 09, 2023 Assessment & Plan (1) Liver mass: (2) Choledocholithiasis: Plan 62yo male with pmh traumatic brain injury, esophageal stricture, cerebellar ataxia, thrombocytopenia, vitamin B12 deficiencies, peripheral neuropathy, history of alcohol abuse presents with a 1 week history of abdominal pain, nausea, vomiting, poor appetite, unsteady gait. He reports increased fluid intake. He denies fever, chills, sweats, diarrhea, rash Afebrile and HDS in Ed. On exam, he was jaundiced. Labs noted for a wbc 21k, Na 124, Lactic acid 2.5, AST 84, total bilirubin 8.4, alkaline phosphatase 496 and Pro- 0.87. CTAB shows a cystic lesion which measured 6.5 x 4.1 cm. in the anterior aspect of the L hepatic lobe; cholelithiasis with mild gallbladder wall thickening. Abdominal MRI showed choledocholithiasis with 5 mm distal common bile duct stone w/o significant biliary dilatation as well as the hepatic cyst.. He underwent ERCP in 06/03 w/stone removal, biliary sphincterotomy, balloon extraction with placement of a pancreatic and biliary stent. On 06/05, he underwent laparoscopic cholecystectomy and drainage of hepatic abscess. Abscess cx and cytology obtained. ELIO drain placed in subhepatic space. Abscess cx growing GNR and GPC. ID consulted for hepatic abscess. He is on Zosyn. Micro BC 06/01 NGtd Hepatic abscess Gram Stain Many WBCs ,Few GNR Culture: E. faecium amp sens, Ecoli velazquez sensitive Abx zosyn 06/01- o06/09 Ampicillin 06/09- #Choledocholithiasis #Hepatic abscess #Cholecystitis He remains stable on Zosyn--> Given cultures he was changed to ampicillin today. He currently has drain in place in hepatic abscess. Plans for discharge today, he is tolerating oral Recommendation While in patietn change to Unasyn for anaerobic coverage Can change to Augmentin 875/125 1 po BID, will plan for 3 weeks of oral antibiotics Would recommend a repeat CT in 2 weeks, abscess resolved, then drain can be removed and can dc antibiotics at that point If repeat CT imaging shows continued abscess then would extend antibiotics further and address with outpatient ID. I d/w Dr. Emma Carrillo MD Infectious Disease Call [phone] with questions Admission and Anticipated Discharge Date Admission Date: June 01, 2023 Subjective This patient recommendation is based on a telemedicine consult request which was completed asynchronously through chart review and information provided by the primary physician. The patient was not seen or examined today. The evaluation is consultative in nature and all patient care and treatment decisions can either be accepted or rejected by the patient's primary hospital-based treating physician using their own independent medical judgment for their patient. Time Spent Reviewing Chart: 31+ minutes Results & Data Vital Signs (Past 12 Hours) Vital Signs Temp Pulse Pulse Resp BP Pulse Ox O2 Del Method 06/09/23 11:33 Room Air 06/09/23 11:29 36.7 C 65 16 131/81 94 Room Air 06/09/23 07:25 36.7 C 58 L 16 148/84 H 93 Room Air 06/09/23 07:21 60 06/09/23 02:52 36.7 C 67 16 143/92 H 92 Room Air 06/09/23 01:34 66 Laboratory Results Laboratory Results - last 48 hr 06/08/23 06/08/23 06/09/23 05:56 05:56 06:49 WBC 11.81 H 10.72 RBC 3.61 L 3.57 L Hgb 10.5 L 10.5 L Hct 31.5 L 30.6 L MCV 87.3 85.7 MCH 29.1 29.4 MCHC 33.3 34.3 RDW Std Deviation 45.6 45.2 RDW Coeff of Odin 14.3 14.4 Plt Count 566 H 617 H MPV 9.6 9.7 Sodium 133 L Potassium 3.3 L Chloride 99 Carbon Dioxide 28 Anion Gap 6 BUN 6 Creatinine 0.72 Est Cr Clr Drug Dosing 122.1 Est GFR ( Amer) 115.1 Est GFR (Non-Af Amer) 99.3 BUN/Creatinine Ratio 8.3 L Glucose 92 Calcium 7.9 L Total Bilirubin 1.6 H Direct Bilirubin 0.6 H AST 18 ALT 20 Alkaline Phosphatase 158 H C-Reactive Protein Total Protein 6.1 Albumin 2.6 L Procalcitonin 06/09/23 06/09/23 06:49 06:49 WBC RBC Hgb Hct MCV MCH MCHC RDW Std Deviation RDW Coeff of Odin Plt Count MPV Sodium 135 L Potassium 3.6 Chloride 101 Carbon Dioxide 29 Anion Gap 5 BUN 6 Creatinine 0.79 Est Cr Clr Drug Dosing 106.0 Est GFR ( Amer) 110.8 Est GFR (Non-Af Amer) 95.6 BUN/Creatinine Ratio 7.6 L Glucose 86 Calcium 8.0 L Total Bilirubin Direct Bilirubin AST ALT Alkaline Phosphatase C-Reactive Protein 14.71 H Total Protein Albumin Procalcitonin 0.06 Microbiology 06/05/23 11:52 Gallbladder Gram Stain - Final 06/05/23 11:52 Gallbladder Aerobic and Anaerobic Culture - Preliminary Escherichia coli Enterococcus faecium 06/01/23 18:34 Blood Aerobic Blood Culture - Final No growth in Aerobic bottle after 5 days. 06/01/23 18:34 Blood Anaerobic Blood Culture - Final No growth in Anaerobic bottle after 5 days. 06/01/23 18:30 Blood Aerobic Blood Culture - Final No growth in Aerobic bottle after 5 days. 06/01/23 18:30 Blood Anaerobic Blood Culture - Final No growth in Anaerobic bottle after 5 days. Medications Administered Current Inpatient Medications Lactated Ringer's (Lr) 1,000 mls @ 80 mls/hr IV .[id number] [facility] Stop: 07/05/23 14:29 Last Infusion: 06/09/23 10:30 Dose: 80 mls/hr Ampicillin Sodium 2,000 mg/ (Sodium Chloride) 108 mls @ 200 mls/hr IV Q4H [facility] Stop: 06/17/23 19:59 Last Infusion: 06/09/23 13:23 Dose: Infused Levetiracetam (Levetiracetam 500 Mg Tab) 1,500 mg PO Q12 [facility] Stop: 07/02/23 02:05 Last Admin: 06/09/23 09:14 Dose: 1,500 mg Metoprolol Tartrate (Metoprolol Tartrate 50 Mg Tab) 50 mg PO Q12 [facility] Stop: 07/02/23 02:05 Last Admin: 06/09/23 09:15 Dose: 50 mg Morphine Sulfate (Morphine Sulfate 2 Mg/Ml Carp) 2 mg IV Q3H PRN PRN Reason: Moderate Pain (Scale 4, 5, 6) Stop: 06/19/23 14:06 Morphine Sulfate (Morphine Sulfate 4 Mg/Ml 1 Ml Carp\Vial) 4 mg IV Q3H PRN PRN Reason: Severe Pain (Scale 7, 8, 9,10) Stop: 06/19/23 14:06 Last Admin: 06/06/23 03:39 Dose: 4 mg Ondansetron HCl (Ondansetron Inj 2 Mg/Ml 2 Ml Vial) 4 mg IV Q6H PRN PRN Reason: Nausea Stop: 07/02/23 02:05 Oxycodone HCl (Oxycodone Hcl Ir 5 Mg Tab (Immediate Release)) 5 mg PO Q4H PRN PRN Reason: Moderate Pain (Scale 4, 5, 6) Stop: 06/19/23 14:06 Last Admin: 06/06/23 11:23 Dose: 5 mg Oxycodone HCl (Oxycodone Hcl Ir 5 Mg Tab (Immediate Release)) 10 mg PO Q4H PRN PRN Reason: Severe Pain (Scale 7, 8, 9,10) Stop: 06/19/23 14:06 Pantoprazole Sodium (Pantoprazole 40 Mg Tab) 40 mg PO BID VINNY Stop: 07/02/23 08:59 Last Admin: 06/09/23 09:14 Dose: 40 mg
[2023-06-09] MEDS: LACTATED RINGER'S 1,000 ML IV SCH (14:12)
--- NOTE | 2023-06-09 16:57 | Discharge Summary ---
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 He denies any current use of alcoholic beverages, but does drink frequent amounts of water. Significant laboratory normalities: Sodium 124, potassium 3.0, glucose 124, WBC 21.35, urine osmolality 264, serum osmolality 263, lactic acid 2.5, AST 84, albumin 3.3, total bilirubin 8.4, alkaline phosphatase 496 and Pro- 0.87 Principal Diagnosis liver abscess Discharge Exam Patient is resting comfortably. Card exam is regular lungs are clear, sharron drain: serosanguineous fluid Extremities are with trace edema Discharge Data Allergies Allergy/AdvReac Type Severity Reaction Status Date / Time No Known Allergies Allergy Verified 06/05/23 10:28 Consultations 06/01/23 23:21 ED Decision to Admit Stat 06/02/23 02:06 Consult Gastroenterology Routine 06/04/23 11:39 Consult General Surgery Routine 06/05/23 14:07 Consult Infectious Diseases Routine Procedures Performed Operation Date: 06/05/23 09:35 Actual Procedures p Laparoscopic Cholecystectomy, laparoscopic fenestration of hepatic abcess, laparoscopic lysis of adhesion(Not Applicable) - Naeem Albrecht DO, FACS Ordered Studies 06/01/23 17:42 CT abd pelvis IV con only Stat 06/01/23 18:07 CT head/brain wo con Stat 06/01/23 21:38 US gallbladder Stat 06/03/23 00:06 MR MRCP Routine 06/03/23 10:05 FL ERCP biliary ductal Routine Hospital Course (1) Total bilirubin, elevated: painless Jaundice , cholestasis by serology, cyctic liver lesion, previous alcohol use none for 2 years as quit after traumatic seizure. CT scan of abdomen and pelvis with IV contrast shows a cystic lesion in the anterior aspect of the left hepatic lobe measuring 6.5 x 4.1 cm, There was also noted cholelithiasis and mild gallbladder wall thickening Ultrasound of gallbladder shows a right hepatic cystic lesion measuring 5.6 x 4.1 x 4.4 cm, MRCP's suggest this is from distal common bile duct stone scheduled ERCP in the afternoon of 06/04, 2 stones removed, sphincterotomy, performed, for cholecystectomy 06/05 AFP is sent does have leukocytosis continues to be on Zosyn liver abscess shown on imagng. Gram stain does show pansensitive E. coli and E. faecalis Drain in subhepatic space and into the abscess Leave drain in place Transitioned antibiotics to ampicillin ID on 06/09 Recommended Augmentin 875/125 1 po BID, will plan for 3 weeks of oral antibiotics Would recommend a repeat CT in 2 weeks, abscess resolved, then drain can be removed and can dc antibiotics at that point If repeat CT imaging shows continued abscess then would extend antibiotics further and address with outpatient ID. (2) Acute hyponatremia: Hyponatremia/hypokalemia/hypoosmolality- Looks to be a primary process of polydipsia fluid restrict with some improvement of sodium to 129 continue to follow replete other electrolytes Sodium has improved to 132. (3) Hypertension: Hypertension- Continue metoprolol tartrate 50 mg p.o. twice daily with hold parameters (4) Cerebellar ataxia: Cerebellar ataxia/nonepileptic convulsions- Continue Keppra 1500 mg p.o. every 12 hours previous alcohol will have pT/OT once recovers thiamine in 2021 was normal Total Time Total Time Spent Total Time Spent (In Minutes): 35 Discharge Plan Discharge Items Patient Disposition: Home - Self-Care Reason For Visit: JAUNDICE,CONFUSION Discharge Diagnosis: laparoscopic cholecystectomy Activity: Per Instructions section Lifting: No more than 10 pounds Bathing Comment: may shower starting 06/10/23; no soaking in tubs/pools x 2 weeks Exercise/Sports: Wait until after follow-up appointment Driving/Machine Use: no driving while taking narcotics for pain Non-emergency contact: Surgeon Call non-emergency contact if: you have any medication questions, your pain is not controlled, your pain is worsening, you have a fever, your temperature is above 101.5, your wound has increased redness, your wound has increased drainage and your wound pain has increased Follow-up/Referrals: Naeem Albrecht DO, TOMMIE [Physician] - (Please call to schedule follow up in clinic this Friday06/13/23 or Friday06/16/23 for drain removal ) Sudarshan Trinidad DO [Primary Care Provider] - Diet: Regular Addtl Attending Provider Instructions: You have skin glue over your incisions called dermabond. you may shower with this on. It will tend to dissolve and fall off within a couple weeks. Do not pick at the skin glue You will be discharged with a surgical drain in place. Please care for this as you have been instructed prior to discharge. Record daily output and bring a log with you to clinic. Pending Studies at Discharge: Yes Studies:: surgical pathology Stand-Alone Forms: My [facility], Smoking Cessation Medications and DC Order Prescriptions: New amoxicillin-pot clavulanate 875-125 mg tablet 1 tab PO Q12H 21 Days Qty: 42 0RF Rx Instructions: Start first dose tonight Continued cholecalciferol (vitamin D3) 50 mcg (2,000 unit) capsule 50 mcg PO DAILY Qty: 30 5RF Patient Comments: TAKES HS metoprolol tartrate 50 mg tablet 50 mg PO Q12H Qty: 180 3RF folic acid 1 mg tablet 1 mg PO DAILY Qty: 90 3RF duloxetine 30 mg capsule,delayed release(DR/EC) 30 mg PO DAILY Qty: 90 1RF levetiracetam 500 mg tablet 1,500 mg PO Q12H Qty: 540 3RF pantoprazole 40 mg tablet,delayed release (DR/EC) 40 mg PO BID Discontinued doxazosin 2 mg tablet 2 mg PO DAILY Qty: 90 3RF atorvastatin 40 mg tablet 40 mg PO QAM Qty: 90 3RF aspirin 81 mg Tablet,Delayed Release (Dr/Ec) 81 mg PO QAM Qty: 30 0RF amlodipine 10 mg tablet 20 mg PO DAILY Discharge Orders: Discharge Order (Routine); Ordered 06/09/23 Ordered By: Sundeep Duckworth/Other Patient Handouts: Having Laparoscopic Cholecystectomy, Post Op Drain Emptying Steps Admission Data Admit Date/Time: 06/01/23 23:27 Attending Provider: Sundeep Carter Admit Provider: Prem Alejo Primary Care Provider: Sudarshan Trinidad Other Providers: Prem Alejo ; Taran Mcclain ; Naeem Albrecht ; Anuja Mcnamara ; Kvng Amaro ; Ann-Marie Avendaño ; Brenda Casillas ; Leatha Morse ; Ama Carrillo ; Leilani Saravia ; Kade Cartwright ; Serene Lovett Other Interventions: Discharge Summary Assessment (RN) Last Done: 06/09/23 17:46 Coding Level of Care Code 68806 INP/OBS DISCH >30 MIN Diagnoses Total bilirubin, elevated R17 Acute hyponatremia E87.1 Hypertension I10 Cerebellar ataxia G11.9
== END 2023-06-09 18:27 | disposition home or self-care (01) | DRG 417 ==
LOC: ED 16:06 → EDINP 23:27 → SUATTDRO 23:27 → 2N 06-02 02:06